=== PATIENT | male | born 1950 | race Caucasian/White ===

== ENCOUNTER → 2022-02-04 12:23 | Outpatient (BNVA) | payer OTHER, SELFPAY | PROVIDERS: PCP Internal Medicine; Visit Provider Psychiatry & Neurology Neurology | DX: G43.909 Migraine, unspecified, not intractable, without status migrainosus (principal) | CPT/HCPCS: 99212 ==

== ENCOUNTER 2022-04-25 18:03 | Inpatient (IN) | payer OTHER, SELFPAY ==
--- NOTE | ~2022-04-25 | CT_ITS ---
EXAMINATION: CT HEAD WITHOUT CONTRAST CLINICAL INFORMATION: 71-year-old male presents for evaluation of meningioma, arachnoid cyst. COMPARISON: None TECHNIQUE: Contiguous axial imaging was performed from the skull base to vertex without intravenous administration of contrast. This CT examination was performed using dose optimization techniques as appropriate, variously including the following: *Automated exposure control *Adjustment of mA and/or kV according to patient size (this includes techniques or standardized protocols for targeted exams where dose is matched to indication/reason for exam; i.e. extremities or head) *Use of iterative reconstruction technique DLP: 783 mGy-cm FINDINGS: There is prominence of cerebrospinal fluid space superior to the cerebellar vermis. This has the appearance of an arachnoid cyst which measures approximately 3.2 cm AP and 2 cm craniocaudal. Minimal mass effect upon the superior surfaces of the vermis and cerebellar hemispheres. The cerebellar tonsils are in normal position. A partially calcified extra-axial mass in the parasagittal region of the high right parietal lobe, consistent with meningioma, measures up to 1.4 cm maximum dimension. No associated mass effect. No evidence of an acute major vessel territory infarction. The haile-white matter differentiation maintained. Mild parenchymal volume loss with commensurate prominence of ventricles and sulci; no hydrocephalus. The brainstem is unremarkable. There is atherosclerotic calcification of cavernous carotid arteries. Prior right ocular lens extraction. A right scleral band is noted. The mastoid air cells are well aerated. Paranasal sinuses are unremarkable. Temporomandibular joints are normal. CT/CT head/brain wo IV con IMPRESSION: * No acute intracranial pathology. * 1.4 cm partially calcified meningioma is observed in the parasagittal region superior to the right parietal lobe. * Findings consistent with arachnoid cyst located within the posterior fossa superior to the cerebellar vermis.
[2022-04-25 18:07] VITALS: BP 153/87; PULSE 66; RESP 18; TEMP 36.3; O2SAT 99; BMI 21.6
--- NOTE | 2022-04-25 18:11 | ED_ITS ---
HPI - Psych General Chief Complaint: Psychiatric Symptoms <EYAL Mancini - Last Filed: 04/26/22 11:30> Stated Complaint: crisis <EYAL Mancini - Last Filed: 04/26/22 11:30> Time Seen by Provider: 04/25/22 18:46 <EYAL Mancini - Last Filed: 04/26/22 11:30> Source: patient <Bessybrian Kirbydonis Crowder CNP - Last Filed: 04/26/22 01:16> Mode of arrival: ambulatory <Bessy Crowder CNP - Last Filed: 04/26/22 01:16> Limitations: no limitations <Bessy Crowder CNP - Last Filed: 04/26/22 01:16> History of Present Illness HPI Narrative: patient is a 71-year-old male who presents emergency department for evaluation of increasing depression and vague suicidal ideations. He expresses feeling unsafe in wanting to wander into the [place] and . Reports increasing depression, and multiple family members having committed suicide. He is not interested in his usual activities, has poor appetite. Denies any drug or alcohol usage. Denies any physical complaints at this time. States he was seen by care provider in the community and advised to come to this emergency department. <Bessy Crowder CNP - Last Filed: 04/26/22 01:16> Related Data Home Medications: Home Medications Medication Instructions Recorded Confirmed galcanezumab-gnlm 120 mg/mL 120 mg subcut Q28D 02/04/22 04/25/22 subcutaneous syringe ([facility]) clonazepam 0.5 mg tablet 1 tab PO BID PRN anxiety 04/25/22 04/25/22 <EYAL Mancini - Last Filed: 04/26/22 11:30> Allergies/Adverse Reactions: Allergies Allergy/AdvReac Type Severity Reaction Status Date / Time No Known Allergies Allergy Mild NKA Unverified 02/04/22 12:27 <EYAL Mancini Last Filed: 04/26/22 11:30> Review of Systems Review of Systems: Constitutional : No Fever, No Chills ENT/Mouth : No Ear Pain, No Nasal Congestion, No sore throat Eyes: No Eye Pain, No Swelling, No Redness Cardiovascular : No Chest Pain, No SOB Respiratory : No Cough, No Sputum, No Dyspnea Gastrointestinal : No Nausea, No Vomiting, No Diarrhea, No Hematochezia, No Melena Genitourinary : No Dysuria, No Urinary Frequency, No Hematuria Musculoskeletal : No Myalgias Skin : No Skin Lesions, No rash Neuro : No Weakness, No Numbness, No Paresthesias, No Dizziness, No Headache Psych : positive Anxiety, positive Depression, positive SI, no HI Heme/Lymph: No Lymphadenopathy Endocrine : No Polyuria, No Polydipsia <Bessy Crowder CNP - Last Filed: 04/26/22 01:16> [facility] Past Medical History Attestation statement: The following information was validated with the patient. <Bessy Crowder CNP - Last Filed: 04/26/22 01:16> Source: old records reviewed <Bessy Crowder CNP - Last Filed: 04/26/22 01:16> Medical History: Medical History Arachnoid cyst Depression History of electroconvulsive therapy Memory loss Meningioma <EYAL Mancini - Last Filed: 04/26/22 11:30> Surgical History: Surgical History H/O eye surgery <EYAL Mancini - Last Filed: 04/26/22 11:30> Social History Social History: Social History Alcohol intake: unknown Patient Tobacco Use Status: Never used Tobacco Smoked in Last 30 Days: No Use of substances other than those prescribed or required for medical reasons: Unknown Advance Directives: No Advance Directives Information Provided: No <EYAL Mancini - Last Filed: 04/26/22 11:30> Physical Exam Vital Signs: Vital Signs: Last Vital Signs Temp 98.0 F 04/26/22 04:44 Pulse 69 04/26/22 08:12 Resp 16 04/26/22 08:12 BP 105/73 04/26/22 08:12 Pulse Ox 99 04/26/22 08:12 O2 Del Method 04/26/22 08:12 BMI result Body Mass Index 21.6 <EYAL Mancini - Last Filed: 04/26/22 11:30> Vital Signs: Last Vital Signs Temp 98.0 F 04/26/22 04:44 Pulse 69 04/26/22 08:12 Resp 16 04/26/22 08:12 BP 105/73 04/26/22 08:12 Pulse Ox 99 04/26/22 08:12 O2 Del Method 04/26/22 08:12 BMI result Body Mass Index 21.6 <Bessy Crowder CNP - Last Filed: 04/26/22 01:16> Vital Signs: Last Vital Signs Temp 98.0 F 04/26/22 04:44 Pulse 69 04/26/22 08:12 Resp 16 04/26/22 08:12 BP 105/73 04/26/22 08:12 Pulse Ox 99 04/26/22 08:12 O2 Del Method 04/26/22 08:12 BMI result Body Mass Index 21.6 <Benedicto Avalos MD - Last Filed: 04/26/22 09:00> Appearance: Alert.?Oriented to person, place and time. Anxious..?Normal affect. Eyes: Pupils equal, round and reactive to light.? ENT: Pharynx normal.?? Neck: Normal inspection.? Neck supple.?? CVS: Heart sounds normal. Normal heart rate and rhythm.? Pulses normal.?? Respiratory: No respiratory distress.? Lung sounds clear to auscultation bilaterally?? Abdomen: Soft and non-tender. Normoactive bowel sounds. Skin: Skin warm and dry.? Normal skin color.? Extremities: No lower extremity edema.? Neuro: Moves all extremities spontaneously. Sensation intact bilaterally. CN II- XII intact. No focal neuro deficits. Ambulates with normal steady gait. <Bessy Crowder CNP - Last Filed: 04/26/22 01:16> Course Course Course Narrative: RME: 71 yold male with pmh of depression presents to the ED for depression and suicidal ideation. patient states not intersted in eating or takeing part in his usual interests. labs and Crisis consult ordered <EYAL Mancini - Last Filed: 04/26/22 11:30> Reevaluation(s) Reevaluation #1: EKG reveals normal sinus rhythm, ventricular rate 68, QTC 412, normal QRS, ST elevation in V1- V4 <2mm and without any chest pain, shortness of breath, or symptoms concerning for ACS, Will add on troponin to labs. <Bessy KennyTD sinha - Last Filed: 04/26/22 01:16> Time: 22:25 <Bessy CrowderTD - Last Filed: 04/26/22 01:16> Reevaluation #2: Troponin 4.5, unlikely ACS. Patient complaining of bilateral hip pain, reports history of bursitis for which he has an offloading pressured cushion device at home. Has trialed repositioning and offloading with pillows but is having pain 09/17, patient to receive oxycodone orally. patient placed in physician observation, reason for observation being that he requires additional time for inpatient bed search to continue. Patient is agreeable with plan of care. Calm and cooperative, no apparent distress. COVID- 19 testing is positive today, however he reports that he tested positive for COVID- 19 5 weeks ago, symptoms resolved after a couple of days, has not taken any repeat testing since then. Currently without any URI symptoms. <Bessy Smyth TD Crowder - Last Filed: 04/26/22 01:16> Time: 22:42 <Bessy Smyth TD Crowder - Last Filed: 04/26/22 01:16> Reevaluation #3: Pt is inpatient level of care he was signed off to ma at 6.[address] Up.remain stable no event overnight,continue bed search <Benedicto Avalos MD - Last Filed: 04/26/22 09:00> Time: 08:59 <Benedicto Avalos MD - Last Filed: 04/26/22 09:00> Medications Administered Generic Name Dose Route Start Last Admin Trade Name Freq PRN Reason Stop Dose Admin Clonazepam 0.5 mg 04/25/22 22:29 04/26/22 10:06 Clonazepam 0.5 Mg Tablet PO 0.5 mg BID PRN Administration anxiety Discontinued Medications Generic Name Dose Route Start Last Admin Trade Name Freq PRN Reason Stop Dose Admin Clonazepam 1 mg 04/25/22 19:44 04/25/22 19:59 Clonazepam 1 Mg Tablet PO 04/25/22 19:45 1 mg ONCE ONE Administration Lorazepam 0.5 mg 04/26/22 11:02 04/26/22 11:09 Lorazepam 0.5 Mg Tablet PO 04/26/22 11:03 0.5 mg ONCE ONE Administration Oxycodone HCl 5 mg 04/25/22 22:42 04/25/22 23:39 Oxycodone Hcl Immed Release 5 Mg Tablet PO 04/25/22 22:43 5 mg ONCE ONE Administration <EYAL Mancini - Last Filed: 04/26/22 11:30> Medications Administered Generic Name Dose Route Start Last Admin Trade Name Freq PRN Reason Stop Dose Admin Clonazepam 0.5 mg 04/25/22 22:29 04/26/22 10:06 Clonazepam 0.5 Mg Tablet PO 0.5 mg BID PRN Administration anxiety Discontinued Medications Generic Name Dose Route Start Last Admin Trade Name Freq PRN Reason Stop Dose Admin Clonazepam 1 mg 04/25/22 19:44 04/25/22 19:59 Clonazepam 1 Mg Tablet PO 04/25/22 19:45 1 mg ONCE ONE Administration Lorazepam 0.5 mg 04/26/22 11:02 04/26/22 11:09 Lorazepam 0.5 Mg Tablet PO 04/26/22 11:03 0.5 mg ONCE ONE Administration Oxycodone HCl 5 mg 04/25/22 22:42 04/25/22 23:39 Oxycodone Hcl Immed Release 5 Mg Tablet PO 04/25/22 22:43 5 mg ONCE ONE Administration <Bessy Crowder CNP - Last Filed: 04/26/22 01:16> Medications Administered Generic Name Dose Route Start Last Admin Trade Name Freq PRN Reason Stop Dose Admin Clonazepam 0.5 mg 04/25/22 22:29 04/26/22 10:06 Clonazepam 0.5 Mg Tablet PO 0.5 mg BID PRN Administration anxiety Discontinued Medications Generic Name Dose Route Start Last Admin Trade Name Freq PRN Reason Stop Dose Admin Clonazepam 1 mg 04/25/22 19:44 04/25/22 19:59 Clonazepam 1 Mg Tablet PO 04/25/22 19:45 1 mg ONCE ONE Administration Lorazepam 0.5 mg 04/26/22 11:02 04/26/22 11:09 Lorazepam 0.5 Mg Tablet PO 04/26/22 11:03 0.5 mg ONCE ONE Administration Oxycodone HCl 5 mg 04/25/22 22:42 04/25/22 23:39 Oxycodone Hcl Immed Release 5 Mg Tablet PO 04/25/22 22:43 5 mg ONCE ONE Administration <Benedicto Avalos MD - Last Filed: 04/26/22 09:00> Medical Decision Making Medical Decision Making [facility] Narrative: Patient is a 71-year-old male with a past medical history of arachnoid cyst, meningioma, migraine, depression, bursitis the bilateral hips who presents to the emergency department for evaluation of increasing depression and suicidal ideations. Patient appears anxious, he is without any physical complaints. I consulted with care team, patient has been evaluated outpatient in the community by [facility] in [place], recommendations for inpatient psychiatric services. Patient has been treated at [facility] 15 years ago where he underwent ECT, and patient states this saved my life . Thus he presented here with hopes for inpatient services. He is currently awaiting bed availability for inpatient. Given age will obtain basic labs, urinalysis, viral testing, EKG for medical clearance. Regarding his anxiety, ordered patient's home clonazepam dosage. He is calm and cooperative. <Bessy Crowder CNP - Last Filed: 04/26/22 01:16> Differential Diagnosis Differential Diagnoses: The differential diagnosis associated with the presentation includes ( Physician observation as noted in course) <Bessy Crowder CNP - Last Filed: 04/26/22 01:16> Lab Data [facility] Lab Attestation statement: I reviewed the patient's lab results. <Bessy Crowder CNP - Last Filed: 04/26/22 01:16> Result Diagrams: 04/25/22 21:23 04/25/22 21:23 <EYAL Mancini - Last Filed: 04/26/22 11:30> Labs: Lab Results 04/25/22 04/25/22 04/25/22 Range/Units 21:23 21:23 21:23 WBC 3.4 L (4.8-10.8) X10*3/uL RBC 4.45 L (4.60-5.80) X10*6/uL Hgb 13.4 L (14.0-18.0) g/dl Hct 39.8 L (42.0-52.0) % MCV 89.4 (80.0-98.0) fL MCH 30.1 (27.0-33.0) pg MCHC 33.7 (31.0-36.0) g/dl RDW 12.5 (11.0-16.0) % Plt Count 150 L (160-400) X10*3/uL MPV 9.1 L (9.4-12.4) fL Immature Gran % (Auto) 0.3 (0.0-0.4) % Neut % (Auto) 64.6 (45-73) % Lymph % (Auto) 24.7 (20-40) % [place] % (Auto) 8.9 (2-11) % Eos % (Auto) 0.9 (0-4) % Baso % (Auto) 0.6 (0-2) % Lymph # (Auto) 0.8 L (1.2-4.9) X10*3/uL [place] # (Auto) 0.3 (0.1-1.2) X10*3/uL Eos # (Auto) 0.0 (0.0-0.4) X10*3/uL Baso # (Auto) 0.0 (0.0-0.2) X10*3/uL Abs Immat Gran (auto) 0.01 (0.00-0.03) X10*3/uL Absolute Neuts (auto) 2.2 (2.0-8.3) x10*3/uL Absolute Nucleated RBC 0.000 (0.0-0.012) X10*3/uL Nucleated RBC % (auto) 0.0 (0.0-0.2) /100WBC Sodium 140 (135-145) mmol/L Potassium 3.6 (3.3-5.1) mmol/L Chloride 104 (96-108) mmol/L Carbon Dioxide 30 H (22-29) mmol/L Anion Gap 10 L (12-20) BUN 16 (9-16) mg/dL Creatinine 1.26 (0.5-1.4) mg/dL Estim Creat Clear Calc 53.4 Estimated GFR 56 Random Glucose 126 H (60-115) mg/dL Calcium 8.9 (8.4-10.2) mg/dL Total Bilirubin 0.3 (0.0-1.0) mg/dL AST 17 (5-37) U/L ALT 15 (0-40) U/L Alkaline Phosphatase 62 (39-117) U/L Troponin I High Sens (<3.5-35.0) ng/L Total Protein 5.9 L (6.5-8.0) g/dL Albumin 3.8 (3.5-5.0) g/dL Urine Color Urine Appearance Urine pH (5.0-9.0) Ur Specific [place] (1.005-1.025) Urine Protein (Neg-Trace) mg/dL Urine Glucose (UA) (Negative) mg/dL Urine Ketones (Negative) mg/dL Urine Blood (Negative) Urine Nitrite (Negative) Ur Leukocyte Esterase (Negative) Urine Opiates Screen (Not Detect) Urine Fentanyl Screen (Not Detect) Ur Barbiturates Screen (Not Detect) Ur Phencyclidine Scrn (Not Detect) Ur Amphetamines Screen (Not Detect) U Benzodiazepines Scrn (Not Detect) Urine Cocaine Screen (Not Detect) U Marijuana (THC) Screen (Not Detect) Ethyl Alcohol < 10 mg/dL COVID-19 (GUNNAR) Positive A (Negative) COVID-19 Clin Com See Note 04/25/22 04/26/22 04/26/22 Range/Units 23:15 02:56 02:57 WBC (4.8-10.8) X10*3/uL RBC (4.60-5.80) X10*6/uL Hgb (14.0-18.0) g/dl Hct (42.0-52.0) % MCV (80.0-98.0) fL MCH (27.0-33.0) pg MCHC (31.0-36.0) g/dl RDW (11.0-16.0) % Plt Count (160-400) X10*3/uL MPV (9.4-12.4) fL Immature Gran % (Auto) (0.0-0.4) % Neut % (Auto) (45-73) % Lymph % (Auto) (20-40) % [place] % (Auto) (2-11) % Eos % (Auto) (0-4) % Baso % (Auto) (0-2) % Lymph # (Auto) (1.2-4.9) X10*3/uL [place] # (Auto) (0.1-1.2) X10*3/uL Eos # (Auto) (0.0-0.4) X10*3/uL Baso # (Auto) (0.0-0.2) X10*3/uL Abs Immat Gran (auto) (0.00-0.03) X10*3/uL Absolute Neuts (auto) (2.0-8.3) x10*3/uL Absolute Nucleated RBC (0.0-0.012) X10*3/uL Nucleated RBC % (auto) (0.0-0.2) /100WBC Sodium (135-145) mmol/L Potassium (3.3-5.1) mmol/L Chloride (96-108) mmol/L Carbon Dioxide (22-29) mmol/L Anion Gap (12-20) BUN (9-16) mg/dL Creatinine (0.5-1.4) mg/dL Estim Creat Clear Calc Estimated GFR Random Glucose (60-115) mg/dL Calcium (8.4-10.2) mg/dL Total Bilirubin (0.0-1.0) mg/dL AST (5-37) U/L ALT (0-40) U/L Alkaline Phosphatase (39-117) U/L Troponin I High Sens 4.5 (<3.5-35.0) ng/L Total Protein (6.5-8.0) g/dL Albumin (3.5-5.0) g/dL Urine Color Yellow Urine Appearance Clear Urine pH 5.5 (5.0-9.0) Ur Specific [place] 1.015 (1.005-1.025) Urine Protein Negative (Neg-Trace) mg/dL Urine Glucose (UA) Negative (Negative) mg/dL Urine Ketones Negative (Negative) mg/dL Urine Blood Negative (Negative) Urine Nitrite Negative (Negative) Ur Leukocyte Esterase Negative (Negative) Urine Opiates Screen Not Detected (Not Detect) Urine Fentanyl Screen Not Detected (Not Detect) Ur Barbiturates Screen Not Detected (Not Detect) Ur Phencyclidine Scrn Not Detected (Not Detect) Ur Amphetamines Screen Not Detected (Not Detect) U Benzodiazepines Scrn Not Detected (Not Detect) Urine Cocaine Screen Not Detected (Not Detect) U Marijuana (THC) Screen Not Detected (Not Detect) Ethyl Alcohol mg/dL COVID-19 (GUNNAR) (Negative) COVID-19 Clin Com <EYAL Mancini - Last Filed: 04/26/22 11:30> Lab Results 04/25/22 04/25/22 04/25/22 Range/Units 21:23 21:23 21:23 WBC 3.4 L (4.8-10.8) X10*3/uL RBC 4.45 L (4.60-5.80) X10*6/uL Hgb 13.4 L (14.0-18.0) g/dl Hct 39.8 L (42.0-52.0) % MCV 89.4 (80.0-98.0) fL MCH 30.1 (27.0-33.0) pg MCHC 33.7 (31.0-36.0) g/dl RDW 12.5 (11.0-16.0) % Plt Count 150 L (160-400) X10*3/uL MPV 9.1 L (9.4-12.4) fL Immature Gran % (Auto) 0.3 (0.0-0.4) % Neut % (Auto) 64.6 (45-73) % Lymph % (Auto) 24.7 (20-40) % [place] % (Auto) 8.9 (2-11) % Eos % (Auto) 0.9 (0-4) % Baso % (Auto) 0.6 (0-2) % Lymph # (Auto) 0.8 L (1.2-4.9) X10*3/uL [place] # (Auto) 0.3 (0.1-1.2) X10*3/uL Eos # (Auto) 0.0 (0.0-0.4) X10*3/uL Baso # (Auto) 0.0 (0.0-0.2) X10*3/uL Abs Immat Gran (auto) 0.01 (0.00-0.03) X10*3/uL Absolute Neuts (auto) 2.2 (2.0-8.3) x10*3/uL Absolute Nucleated RBC 0.000 (0.0-0.012) X10*3/uL Nucleated RBC % (auto) 0.0 (0.0-0.2) /100WBC Sodium 140 (135-145) mmol/L Potassium 3.6 (3.3-5.1) mmol/L Chloride 104 (96-108) mmol/L Carbon Dioxide 30 H (22-29) mmol/L Anion Gap 10 L (12-20) BUN 16 (9-16) mg/dL Creatinine 1.26 (0.5-1.4) mg/dL Estim Creat Clear Calc 53.4 Estimated GFR 56 Random Glucose 126 H (60-115) mg/dL Calcium 8.9 (8.4-10.2) mg/dL Total Bilirubin 0.3 (0.0-1.0) mg/dL AST 17 (5-37) U/L ALT 15 (0-40) U/L Alkaline Phosphatase 62 (39-117) U/L Troponin I High Sens (<3.5-35.0) ng/L Total Protein 5.9 L (6.5-8.0) g/dL Albumin 3.8 (3.5-5.0) g/dL Urine Color Urine Appearance Urine pH (5.0-9.0) Ur Specific [place] (1.005-1.025) Urine Protein (Neg-Trace) mg/dL Urine Glucose (UA) (Negative) mg/dL Urine Ketones (Negative) mg/dL Urine Blood (Negative) Urine Nitrite (Negative) Ur Leukocyte Esterase (Negative) Urine Opiates Screen (Not Detect) Urine Fentanyl Screen (Not Detect) Ur Barbiturates Screen (Not Detect) Ur Phencyclidine Scrn (Not Detect) Ur Amphetamines Screen (Not Detect) U Benzodiazepines Scrn (Not Detect) Urine Cocaine Screen (Not Detect) U Marijuana (THC) Screen (Not Detect) Ethyl Alcohol < 10 mg/dL COVID-19 (GUNNAR) Positive A (Negative) COVID-19 Clin Com See Note 04/25/22 04/26/22 04/26/22 Range/Units 23:15 02:56 02:57 WBC (4.8-10.8) X10*3/uL RBC (4.60-5.80) X10*6/uL Hgb (14.0-18.0) g/dl Hct (42.0-52.0) % MCV (80.0-98.0) fL MCH (27.0-33.0) pg MCHC (31.0-36.0) g/dl RDW (11.0-16.0) % Plt Count (160-400) X10*3/uL MPV (9.4-12.4) fL Immature Gran % (Auto) (0.0-0.4) % Neut % (Auto) (45-73) % Lymph % (Auto) (20-40) % [place] % (Auto) (2-11) % Eos % (Auto) (0-4) % Baso % (Auto) (0-2) % Lymph # (Auto) (1.2-4.9) X10*3/uL [place] # (Auto) (0.1-1.2) X10*3/uL Eos # (Auto) (0.0-0.4) X10*3/uL Baso # (Auto) (0.0-0.2) X10*3/uL Abs Immat Gran (auto) (0.00-0.03) X10*3/uL Absolute Neuts (auto) (2.0-8.3) x10*3/uL Absolute Nucleated RBC (0.0-0.012) X10*3/uL Nucleated RBC % (auto) (0.0-0.2) /100WBC Sodium (135-145) mmol/L Potassium (3.3-5.1) mmol/L Chloride (96-108) mmol/L Carbon Dioxide (22-29) mmol/L Anion Gap (12-20) BUN (9-16) mg/dL Creatinine (0.5-1.4) mg/dL Estim Creat Clear Calc Estimated GFR Random Glucose (60-115) mg/dL Calcium (8.4-10.2) mg/dL Total Bilirubin (0.0-1.0) mg/dL AST (5-37) U/L ALT (0-40) U/L Alkaline Phosphatase (39-117) U/L Troponin I High Sens 4.5 (<3.5-35.0) ng/L Total Protein (6.5-8.0) g/dL Albumin (3.5-5.0) g/dL Urine Color Yellow Urine Appearance Clear Urine pH 5.5 (5.0-9.0) Ur Specific [place] 1.015 (1.005-1.025) Urine Protein Negative (Neg-Trace) mg/dL Urine Glucose (UA) Negative (Negative) mg/dL Urine Ketones Negative (Negative) mg/dL Urine Blood Negative (Negative) Urine Nitrite Negative (Negative) Ur Leukocyte Esterase Negative (Negative) Urine Opiates Screen Not Detected (Not Detect) Urine Fentanyl Screen Not Detected (Not Detect) Ur Barbiturates Screen Not Detected (Not Detect) Ur Phencyclidine Scrn Not Detected (Not Detect) Ur Amphetamines Screen Not Detected (Not Detect) U Benzodiazepines Scrn Not Detected (Not Detect) Urine Cocaine Screen Not Detected (Not Detect) U Marijuana (THC) Screen Not Detected (Not Detect) Ethyl Alcohol mg/dL COVID-19 (GUNNAR) (Negative) COVID-19 Clin Com <Bessy Crowder, MED AIDE - Last Filed: 04/26/22 01:16> Lab Results 04/25/22 04/25/22 04/25/22 Range/Units 21:23 21:23 21:23 WBC 3.4 L (4.8-10.8) X10*3/uL RBC 4.45 L (4.60-5.80) X10*6/uL Hgb 13.4 L (14.0-18.0) g/dl Hct 39.8 L (42.0-52.0) % MCV 89.4 (80.0-98.0) fL MCH 30.1 (27.0-33.0) pg MCHC 33.7 (31.0-36.0) g/dl RDW 12.5 (11.0-16.0) % Plt Count 150 L (160-400) X10*3/uL MPV 9.1 L (9.4-12.4) fL Immature Gran % (Auto) 0.3 (0.0-0.4) % Neut % (Auto) 64.6 (45-73) % Lymph % (Auto) 24.7 (20-40) % [place] % (Auto) 8.9 (2-11) % Eos % (Auto) 0.9 (0-4) % Baso % (Auto) 0.6 (0-2) % Lymph # (Auto) 0.8 L (1.2-4.9) X10*3/uL [place] # (Auto) 0.3 (0.1-1.2) X10*3/uL Eos # (Auto) 0.0 (0.0-0.4) X10*3/uL Baso # (Auto) 0.0 (0.0-0.2) X10*3/uL Abs Immat Gran (auto) 0.01 (0.00-0.03) X10*3/uL Absolute Neuts (auto) 2.2 (2.0-8.3) x10*3/uL Absolute Nucleated RBC 0.000 (0.0-0.012) X10*3/uL Nucleated RBC % (auto) 0.0 (0.0-0.2) /100WBC Sodium 140 (135-145) mmol/L Potassium 3.6 (3.3-5.1) mmol/L Chloride 104 (96-108) mmol/L Carbon Dioxide 30 H (22-29) mmol/L Anion Gap 10 L (12-20) BUN 16 (9-16) mg/dL Creatinine 1.26 (0.5-1.4) mg/dL Estim Creat Clear Calc 53.4 Estimated GFR 56 Random Glucose 126 H (60-115) mg/dL Calcium 8.9 (8.4-10.2) mg/dL Total Bilirubin 0.3 (0.0-1.0) mg/dL AST 17 (5-37) U/L ALT 15 (0-40) U/L Alkaline Phosphatase 62 (39-117) U/L Troponin I High Sens (<3.5-35.0) ng/L Total Protein 5.9 L (6.5-8.0) g/dL Albumin 3.8 (3.5-5.0) g/dL Urine Color Urine Appearance Urine pH (5.0-9.0) Ur Specific [place] (1.005-1.025) Urine Protein (Neg-Trace) mg/dL Urine Glucose (UA) (Negative) mg/dL Urine Ketones (Negative) mg/dL Urine Blood (Negative) Urine Nitrite (Negative) Ur Leukocyte Esterase (Negative) Urine Opiates Screen (Not Detect) Urine Fentanyl Screen (Not Detect) Ur Barbiturates Screen (Not Detect) Ur Phencyclidine Scrn (Not Detect) Ur Amphetamines Screen (Not Detect) U Benzodiazepines Scrn (Not Detect) Urine Cocaine Screen (Not Detect) U Marijuana (THC) Screen (Not Detect) Ethyl Alcohol < 10 mg/dL COVID-19 (GUNNAR) Positive A (Negative) COVID-19 Clin Com See Note 04/25/22 04/26/22 04/26/22 Range/Units 23:15 02:56 02:57 WBC (4.8-10.8) X10*3/uL RBC (4.60-5.80) X10*6/uL Hgb (14.0-18.0) g/dl Hct (42.0-52.0) % MCV (80.0-98.0) fL MCH (27.0-33.0) pg MCHC (31.0-36.0) g/dl RDW (11.0-16.0) % Plt Count (160-400) X10*3/uL MPV (9.4-12.4) fL Immature Gran % (Auto) (0.0-0.4) % Neut % (Auto) (45-73) % Lymph % (Auto) (20-40) % [place] % (Auto) (2-11) % Eos % (Auto) (0-4) % Baso % (Auto) (0-2) % Lymph # (Auto) (1.2-4.9) X10*3/uL [place] # (Auto) (0.1-1.2) X10*3/uL Eos # (Auto) (0.0-0.4) X10*3/uL Baso # (Auto) (0.0-0.2) X10*3/uL Abs Immat Gran (auto) (0.00-0.03) X10*3/uL Absolute Neuts (auto) (2.0-8.3) x10*3/uL Absolute Nucleated RBC (0.0-0.012) X10*3/uL Nucleated RBC % (auto) (0.0-0.2) /100WBC Sodium (135-145) mmol/L Potassium (3.3-5.1) mmol/L Chloride (96-108) mmol/L Carbon Dioxide (22-29) mmol/L Anion Gap (12-20) BUN (9-16) mg/dL Creatinine (0.5-1.4) mg/dL Estim Creat Clear Calc Estimated GFR Random Glucose (60-115) mg/dL Calcium (8.4-10.2) mg/dL Total Bilirubin (0.0-1.0) mg/dL AST (5-37) U/L ALT (0-40) U/L Alkaline Phosphatase (39-117) U/L Troponin I High Sens 4.5 (<3.5-35.0) ng/L Total Protein (6.5-8.0) g/dL Albumin (3.5-5.0) g/dL Urine Color Yellow Urine Appearance Clear Urine pH 5.5 (5.0-9.0) Ur Specific [place] 1.015 (1.005-1.025) Urine Protein Negative (Neg-Trace) mg/dL Urine Glucose (UA) Negative (Negative) mg/dL Urine Ketones Negative (Negative) mg/dL Urine Blood Negative (Negative) Urine Nitrite Negative (Negative) Ur Leukocyte Esterase Negative (Negative) Urine Opiates Screen Not Detected (Not Detect) Urine Fentanyl Screen Not Detected (Not Detect) Ur Barbiturates Screen Not Detected (Not Detect) Ur Phencyclidine Scrn Not Detected (Not Detect) Ur Amphetamines Screen Not Detected (Not Detect) U Benzodiazepines Scrn Not Detected (Not Detect) Urine Cocaine Screen Not Detected (Not Detect) U Marijuana (THC) Screen Not Detected (Not Detect) Ethyl Alcohol mg/dL COVID-19 (GUNNAR) (Negative) COVID-19 Clin Com <Benedicto Avalos MD - Last Filed: 04/26/22 09:00> Independent Interpretation I performed an independent interpretation of an: EKG ( as noted in course) <Bessy Crowder CNP - Last Filed: 04/26/22 01:16> Discharge Plan Discharge Clinical Impression: Suicidal ideation, Depression <EYAL Mancini - Last Filed: 04/26/22 11:30> Patient Disposition: Still a Patient <EYAL Mancini - Last Filed: 04/26/22 11:30> Prescriptions: No Action clonazepam 0.5 mg tablet 1 tab PO BID PRN (Reason: anxiety) Emgality Syringe 120 mg/mL syringe 120 mg subcut Q28D <EYAL Mancini - Last Filed: 04/26/22 11:30> Interventions: [place]-Suicide Risk Severity Scale Last Done: 04/26/22 04:16 <EYAL Mancini - Last Filed: 04/26/22 11:30>
--- NOTE | 2022-04-25 19:44 | ECG_ITS ---
Test Reason : QT CHECK Blood Pressure : / mmHG Vent. Rate : 068 BPM Atrial Rate : 068 BPM P-R Int : 180 ms QRS Dur : 086 ms QT Int : 388 ms P-R-T Axes : 071 046 050 degrees QTc Int : 412 ms Normal sinus rhythm Nonspecific T wave abnormality Abnormal ECG When compared with ECG of 05-JUL-2011 14:14, Nonspecific T wave abnormality now evident in Anterior leads Referred By: Bessy Crowder Electronically Signed By:GABBY RASHID MD
[2022-04-25] MEDS: clonazePAM 1 MG TABLET PO (19:59)
--- NOTE | 2022-04-25 20:12 | MHC.CARE ---
CARE Team meets with pt and pt's friend, Alison. Pt was assessed by PUNCH PRESS OPERATOR crisis in [place] this evening due to significant increased anxiety and depression and inability to sleep. PUNCH PRESS OPERATOR contacted CARE Team as pt requested [facility], as pt was hospitalized here 15 years ago and received ECT w/ Dr. Epperson. Pt is anxious during discussion with t/w and expressed concern about having his medical lab technician that he sleeps on, a pad that inflates and deflates, that without he has hip pain. Per discharge specialist pt is not able to have this device in the ED. Pt states that he will be ok for one night, but not beyond that. CARE Team provides validation and reassurance to pt.
[2022-04-25 21:30] LABS: MANUAL DIFF FLAG NO
[2022-04-25 21:36] LABS: Basophils Percent Auto 0.6 % (0-2); Eosinophils Percent Auto 0.9 % (0-4); Hematocrit 39.8 % (42.0-52.0); Hemoglobin 13.4 g/dl (14.0-18.0); Imm Gran Abs Auto 0.01 X10*3/uL (0.00-0.03); Imm Gran Pct Auto 0.3 % (0.0-0.4); Lymphocytes Absolute Auto 0.8 X10*3/uL (1.2-4.9); Lymphocytes Percent Auto 24.7 % (20-40); Mean Corpuscular HGB Conc 33.7 g/dl (31.0-36.0); Mean Corpuscular Hemoglobin 30.1 pg (27.0-33.0); Mean Corpuscular Volume 89.4 fL (80.0-98.0); Mean Platelet Volume 9.1 fL (9.4-12.4); Monocytes Absolute Auto 0.3 X10*3/uL (0.1-1.2); Monocytes Percent Auto 8.9 % (2-11); Neutrophils Absolute Auto 2.2 x10*3/uL (2.0-8.3); Neutrophils Percent Auto 64.6 % (45-73); Platelet Count 150 X10*3/uL (160-400); Red Blood Count 4.45 X10*6/uL (4.60-5.80); Red Cell Distribution Width 12.5 % (11.0-16.0); White Blood Count 3.4 X10*3/uL (4.8-10.8)
[2022-04-25 21:45] LABS: IDNOW Serial# 6674DD1D
[2022-04-25 21:46] LABS: COVID-19 Test Positive (Negative)
[2022-04-25 21:53] LABS: Alanine Aminotransferase 15 U/L (0-40); Albumin Level 3.8 g/dL (3.5-5.0); Alkaline Phosphatase 62 U/L (39-117); Anion Gap 10 (12-20); Aspartate Amino Transferase 17 U/L (5-37); Bilirubin Total 0.3 mg/dL (0.0-1.0); Blood Urea Nitrogen 16 mg/dL (9-16); Calcium 8.9 mg/dL (8.4-10.2); Carbon Dioxide 30 mmol/L (22-29); Chloride 104 mmol/L (96-108); Creatinine Clr Calc Pharmacy 53.4; Estimated Glomerular Filt Rate 56; Ethanol < 10 mg/dL; Glucose Random 126 mg/dL (60-115); Potassium 3.6 mmol/L (3.3-5.1); Sodium 140 mmol/L (135-145); Total Protein 5.9 g/dL (6.5-8.0)
[2022-04-25] MEDS: oxyCODONE HCl Immed Release 5 MG TABLET PO (23:39)
[2022-04-25 23:41] LABS: Troponin-I High Sensitivity 4.5 ng/L (<3.5-35.0)
[2022-04-25] MEDS: clonazePAM 0.5 MG TABLET PO (23:42)
[2022-04-26 00:37] VITALS: BP 107/61; PULSE 74; RESP 13; TEMP 37; O2SAT 97
--- NOTE | 2022-04-26 03:00 | PC.NURSE ---
This health technical writer assumed care of this PT at 0245. PT A&Ox3, calm and cooperative. Denies Si/HI. States anxiety level has been high for the past month . PT reports tolerable pain 5/10 to right sided hip/thigh pain, states med given by previous nurse was effective. PT ambulated to the BR independently. Urine sample collected and sent to lab.
[2022-04-26 03:16] LABS: Amphetamine Screen Urine Not Detected (Not Detect); Barbiturates, Urine Not Detected (Not Detect); Benzodiazepines Screen Urine Not Detected (Not Detect); Cannabinoid Screen Urine Not Detected (Not Detect); Cocaine Screen Urine Not Detected (Not Detect); Fentanyl, urine Not Detected (Not Detect); Opiate Screen Urine Not Detected (Not Detect); Phencyclidine Screen Urine Not Detected (Not Detect)
[2022-04-26 03:21] LABS: Appearance Urine Clear; Color Urine Yellow; Glucose Urine UA Negative (Negative); Leukocyte Esterase Urine Negative (Negative); Nitrite Urine Negative (Negative); PH 5.5 (5.0-9.0); Specific Gravity - Urine 1.015 (1.005-1.025); Urine Blood Negative (Negative); Urine Ketones Negative (Negative); Urine Protein Negative (Neg-Trace)
[2022-04-26 04:44] VITALS: BP 116/79; PULSE 73; RESP 16; TEMP 36.7; O2SAT 96
[2022-04-26 08:12] VITALS: BP 105/73; PULSE 69; RESP 16; O2SAT 99
[2022-04-26] MEDS: clonazePAM 0.5 MG TABLET PO ×2 (10:06→21:28)
[2022-04-26] MEDS: LORazepam 0.5 MG TABLET PO (11:09)
--- NOTE | 2022-04-26 19:37 | PC.NURSE ---
I assumed care for RN Hayder at 1900. At that time the pt was leaving the department with transport and staff [facility] inpatient psych unit. I did not interact with nor care for this patient. nor did I call nursing report
--- NOTE | 2022-04-26 22:48 | PC.ADMIT ---
Martir was admitted to M3 at 1930 from Main ED on conditional for treatment of SI and depression.? Precipitant of admission include poor sleep and increasing depression. Patient is alert and oriented x4. Pleasant and cooperative. Mood is depressed. Affect is sad and flat. Thought Process linear, clear and organized. Speech is clear and normal tone and volume.?Patient reported that prior to coming in he had passive SI thoughts due to sudden increase in depressive symptoms. Patient reported that its new onset started after he had covid the last week of March 2022. Currently denying SI/HI/AH/VH. Stated ?I just want to get help, and that's why I am here?. Reported he wants ECT, and is resistive to trying medications ?i have tried them and not medications work?. Reported that about 15 years ago he received ECT treatments with Dr. Epperson. Reported that the ECT worked well and his depression was manageable up until recently. Endorsed requiring clonazepam 1 mg to sleep. Reported that he was sleeping 8 plus hours a night and still waking up not refreshed, compared to prior sleeping 6-7 hours a night and feeling refreshed. No substance use. Reports chronic pain in bilateral hips. Utilizes air mattress pad at night, requiring equipment obs overnight. 15 minute safety checks when not utilizing.
--- NOTE | 2022-04-27 | ECG_ITS ---
Test Reason : ect clearence Blood Pressure : / mmHG Vent. Rate : 064 BPM Atrial Rate : 064 BPM P-R Int : 174 ms QRS Dur : 084 ms QT Int : 388 ms P-R-T Axes : 078 051 047 degrees QTc Int : 400 ms Normal sinus rhythm Nonspecific ST abnormality Abnormal ECG When compared with ECG of 25-APR-2022 20:49, No significant change was found Referred By: Wil Chakraborty Electronically Signed By:GABBY RASHID MD
[2022-04-27 06:00] VITALS: BP 127/73; PULSE 68; TEMP 36.7; O2SAT 96
[2022-04-27] MEDS: ALPRAZolam 0.5 MG TABLET PO ×2 (11:58→16:46)
--- NOTE | 2022-04-27 14:25 | MHC.CLN ---
RE: CONSULT HT 71 WT 155# IBW 172#+/-10% BMI 21.6; PT IS 90% IBW INDICATES ADEQUATE WT FOR HT UBW PER PT 165#; PT REPORTS 6% SIGNIFICANT WT LOSS X 1 MONTH HOWEVER PREVIOUS WT HX REVEALS: CURRENT 70.3KG (02/04/22) 68KG PT WITH 3% NONSIGNIFICANT WT GAIN X 3 MONTHS LABS REVIEWED-UNREMARKABLE DIET RX: REGULAR-APPROPRIATE NO NEW ORDERS AT THIS TIME MONITOR PO INTAKE CLOSELY IF PO POOR <25% X 3 DAYS; RECOMMEND ADDING ENSURE SUPPLEMENT BID
--- NOTE | 2022-04-27 15:32 | PM.NEUROCN ---
History of Present Illness Data of Consult Service Date: 04/27/22 Primary Care Provider: Nonstaff Physician REA Reason for consult: ECT clearance 71 years old man with chronic depression. He said that about 15 years ago he suffered from severe depression was admitted in hospital tried multiple medical therapies which all failed. He requested ECT treatment, which was tried and worked well for him. He was back in hospital requesting same treatment again. This consultation was requested for ECT clearance and the note stated that he suffered from meningioma and an arachnoid cyst but I could not find any evidence of imaging [facility] or in his records. There was no history of seizure disorder Review of Systems Review of Systems: Feeling depressed PMFSH Past Medical History Medical History Arachnoid cyst Depression History of electroconvulsive therapy Memory loss Meningioma Surgical History Surgical History H/O eye surgery Social History Social History Household Members: Other Household Members Other:: house mates Housing: Apartment Alcohol intake: unknown Patient Tobacco Use Status: Never used Tobacco Smoked in Last 30 Days: No Use of substances other than those prescribed or required for medical reasons: No Currently Displaying Signs/Symptoms of Drug Intoxication Withdrawal: No Have you been hit, kicked, punched, or otherwise hurt by someone within the past year? If so, by whom?: No Do you feel safe in your current relationship?: No Current Relationship Is there a partner from a previous relationship who is making you feel unsafe now?: No Are you made to feel afraid or neglected: No Advance Directives: No Advance Directives Information Provided: No Do you have thoughts of harming others: None Do you have a plan to hurt others: No Plan Recently lost weight without trying: No How much weight loss: 2-13 pounds Eating poorly because of decreased appetite: Yes Nutrition screen score: 2 Nutrition Risks: No Nutritional Risk Poor oral hygiene: No service: No Sexual orientation: Don't Know Meds Allergies Allergy/AdvReac Type Severity Reaction Status Date / Time No Known Allergies Allergy Mild NKA Unverified 02/04/22 12:27 Active Medications: Current Medications Acetaminophen (Acetaminophen 325 Mg Tablet) 650 mg PO Q6H PRN PRN Reason: Headache/Pain Mild Scale (1-3) Al Hydroxide/Mg Hydroxide (Magnesium Hydrox/Alum Hydrox 30 Ml Oral.Susp) 30 ml PO Q6H PRN PRN Reason: Heartburn/Nausea Alprazolam (Alprazolam 0.5 Mg Tablet) 0.5 mg PO Q4H PRN PRN Reason: severe anxiety Last Admin: 04/27/22 11:58 Dose: 0.5 mg Clonazepam (Clonazepam 0.5 Mg Tablet) 0.5 mg PO BID PRN PRN Reason: anxiety Last Admin: 04/26/22 21:28 Dose: 0.5 mg Magnesium Hydroxide (Milk Of Magnesia 30 Ml Oral.Susp) 30 ml PO DAILY PRN PRN Reason: Constipation Nicotine (Nicotine 21 Mg Patch.Td24) 21 mg TRANSDERMA DAILY PRN PRN Reason: smoking cessation Nicotine Polacrilex (Nicotine Polacrilex 2 Mg Gum) 4 mg BUCCAL Q2H PRN PRN Reason: Nicotine Cravings Pharmacy Consult (Consult Rx Perform Med Rec) 1 each MISCELLANE ONCE PRN PRN Reason: Consult order Trazodone HCl (Trazodone Hcl 50 Mg Tablet) 50 mg PO BEDTIME PRN PRN Reason: Insomnia Home Medications Medication Instructions Recorded Confirmed Last Taken Type galcanezumab-gnlm 120 mg/mL 120 mg subcut Q28D 02/04/22 04/25/22 04/10/22 History subcutaneous syringe (Emgality) clonazepam 0.5 mg tablet 1 tab PO BID PRN anxiety 04/25/22 04/25/22 Unknown History Physical Exam Vital Signs: Vital Signs: Last Vital Signs Temp 98.1 F 04/27/22 06:00 Pulse 68 04/27/22 06:00 Resp 16 04/26/22 08:12 BP 127/73 04/27/22 06:00 Pulse Ox 96 04/27/22 06:00 O2 Del Method 04/27/22 06:00 BMI result Body Mass Index 21.6 Neuro: Other: Alert and awake with normal spontaneity of speech fluency comprehension and flat affect. Balance gait and coordination normal. Face is symmetrical. Visual french are full. There is no tremor or parkinsonism. Deep tendon reflexes are trace. Results Labs 04/25/22 21:23 04/25/22 21:23 Assessment and Plan (1) Meningioma: Status: Acute 71 years old man with chronic depression being considered for electroconvulsive therapy. This consultation was requested for ECT clearance. His noncontrast head CT revealed a calcified meningioma and an arachnoid cyst. These lesions do not particularly increases risk from electroconvulsive therapy. No premedication is needed. Meningioma is calcified and asymptomatic. Arachnoid cyst is asymptomatic also. No further imaging or intervention is needed. (2) Arachnoid cyst: Status: Acute Time Spent With Patient Time: Total time managing care of this patient today ____ minutes. Procedures Date of Service Date of Service: 04/28/22
--- NOTE | 2022-04-27 17:40 | HO.PM.IMCN ---
History of Present Illness Data of Consult Service Date: 04/27/22 Requesting physician: Wil Chakraborty Primary Care Provider: Nonstaff Physician REA Reason for consult: ECT evaluation 71-year-old male with history of depression, arachnoid cyst, meningioma, and migraine headaches on monthly emgality injections admitted to Psychiatry with consult placed to Medicine for medical evaluation for ECT. The patient denies any history of cardiovascular disease, congestive heart failure, or seizures. He is able to ambulate distances and climb stairs without any sob or cp. He was evaluated by neurology earlier today who did not find any particular contraindication to ECT given the history of meningioma an arachnoid cyst and also requested that prior imaging results be obtained for review and additional neurological guidance. Review of Systems Review of Systems: General: No fevers, malaise, unintentional weight loss HEENT: No blurred vision, diplopia. Cardiovascular: No chest pain, palpitations, or leg edema Respiratory: No shortness of breath, wheezing, cough GI: No abdominal pain, nausea, vomiting, diarrhea, constipation, melena, hematochezia : No dysuria, hematuria, increased urinary frequency, decreased urinary output MSK: No myalgia, back pain Neuro: No headaches, weakness, paresthesias Skin: No rashes or lesions COUNTS INCLUDE 234 BEDS AT THE [facility] Medical History Arachnoid cyst Depression History of electroconvulsive therapy Memory loss Meningioma Surgical History H/O eye surgery Social History Household Members: Other Household Members Other:: house mates Housing: Apartment Alcohol intake: unknown Patient Tobacco Use Status: Never used Tobacco Smoked in Last 30 Days: No Use of substances other than those prescribed or required for medical reasons: No Currently Displaying Signs/Symptoms of Drug Intoxication Withdrawal: No Have you been hit, kicked, punched, or otherwise hurt by someone within the past year? If so, by whom?: No Do you feel safe in your current relationship?: No Current Relationship Is there a partner from a previous relationship who is making you feel unsafe now?: No Are you made to feel afraid or neglected: No Advance Directives: No Advance Directives Information Provided: No Do you have thoughts of harming others: None Do you have a plan to hurt others: No Plan Recently lost weight without trying: No How much weight loss: 2-13 pounds Eating poorly because of decreased appetite: Yes Nutrition screen score: 2 Nutrition Risks: No Nutritional Risk Poor oral hygiene: No service: No Sexual orientation: Don't Know Meds Allergies Allergy/AdvReac Type Severity Reaction Status Date / Time No Known Allergies Allergy Mild NKA Unverified 02/04/22 12:27 Active Medications: Current Medications Acetaminophen (Acetaminophen 325 Mg Tablet) 650 mg PO Q6H PRN PRN Reason: Headache/Pain Mild Scale (1-3) Al Hydroxide/Mg Hydroxide (Magnesium Hydrox/Alum Hydrox 30 Ml Oral.Susp) 30 ml PO Q6H PRN PRN Reason: Heartburn/Nausea Alprazolam (Alprazolam 0.5 Mg Tablet) 0.5 mg PO Q4H PRN PRN Reason: severe anxiety Last Admin: 04/27/22 16:46 Dose: 0.5 mg Clonazepam (Clonazepam 0.5 Mg Tablet) 0.5 mg PO BID PRN PRN Reason: anxiety Last Admin: 04/26/22 21:28 Dose: 0.5 mg Magnesium Hydroxide (Milk Of Magnesia 30 Ml Oral.Susp) 30 ml PO DAILY PRN PRN Reason: Constipation Nicotine (Nicotine 21 Mg Patch.Td24) 21 mg TRANSDERMA DAILY PRN PRN Reason: smoking cessation Nicotine Polacrilex (Nicotine Polacrilex 2 Mg Gum) 4 mg BUCCAL Q2H PRN PRN Reason: Nicotine Cravings Pharmacy Consult (Consult Rx Perform Med Rec) 1 each MISCELLANE ONCE PRN PRN Reason: Consult order Trazodone HCl (Trazodone Hcl 50 Mg Tablet) 50 mg PO BEDTIME PRN PRN Reason: Insomnia Home Medications Medication Instructions Recorded Confirmed Last Taken Type galcanezumab-gnlm 120 mg/mL 120 mg subcut Q28D 02/04/22 04/25/22 04/10/22 History subcutaneous syringe (Emgality) clonazepam 0.5 mg tablet 1 tab PO BID PRN anxiety 04/25/22 04/25/22 Unknown History Physical Exam Vital Signs and Narrative: Vital Signs: Last Vital Signs Temp 98.1 F 04/27/22 06:00 Pulse 68 04/27/22 06:00 Resp 16 04/26/22 08:12 BP 127/73 04/27/22 06:00 Pulse Ox 96 04/27/22 06:00 O2 Del Method 04/27/22 06:00 BMI result Body Mass Index 21.6 Constitutional - Awake and Alert, No apparent distress Eyes - PERRLA, EOMI Cardiovascular - S1S2, RRR, No edema Respiratory - Normal lung expansion, Normal respiratory effort, No respiratory distress, CTA bilaterally Gastrointestinal - NT / ND; +BS; No rebound or guarding Extremities - no calf tenderness bilaterally, no swelling Skin - Warm/Dry Neurological - Alert & oriented x3, CN II-XII in tact, 5/5 strength BUE and BLE Psychological - Appropriate affect Results Labs 04/25/22 21:23 04/25/22 21:23 Assessment and Plan (1) Routine medical exam: Status: Acute Plan 71-year-old male with history of depression, arachnoid cyst, meningioma, and migraine headaches on monthly emgality injections admitted to Psychiatry with consult placed to Medicine for medical evaluation for ECT. #Depression/anxiety -Plan per psychiatry -At this time, there is no medical contraindication for patient to undergo ECT based on patient history and exam. I have also reviewed neurology recommendations #Meningioma/arachnoid cyst -Obtain prior imaging for further neurology review and recommendation #Migraines- controlled -PRN tylenol or imitrex -Emgality as directed if still admitted Thank you for allowing me to participate in this consult. Signing off at this time. Please do not hesitate to call for further questions. Time Spent With Patient Time: Total time managing care of this patient today ____ minutes.
[2022-04-27 18:00] VITALS: BP 119/81; PULSE 62; RESP 16; TEMP 36.2; O2SAT 96
--- NOTE | 2022-04-27 18:34 | PC.ADMIT ---
This patient was escorted from M3 to S1 by M3 staff-please see initial admission note for additional details upon arrival to the hospital. Pt. arrived on the unit via w/c at 1800. Pt. is ambulatory and independent. Pt. is very anxious and expressing concern about not having peers to speak to. My anxiety and depression will get worse if I don't have anyone to speak to, that is why I am here . Pt. states that he will be meeting with Dr. Epperson in the morning to discuss ECT treatment for his depression. He states that he wishes to do only 1 treatment while inpatient, and then d/c and complete the treatment as outpatient. Pt. is hypodermically stable upon arrival to the unit. He was shown his bedroom, and given tour of the unit. Pt. provided with dinner which he ate.
--- NOTE | 2022-04-27 20:29 | P.HPPS_ITS ---
HPI Date of Service: 04/27/22 Chief Complaint: SI/ Depression HPI Narrative: pt self-presents to [facility] for evaluation, accompanied by a female friend. he reports since having COVID in recent weeks his mood has broken and he has become severely depressed, such that he has been having suicidal thoughts. he is not currently in mental health treatment and is interested in starting on a course of ECT and then obtaining a referral for psychiatrist, then discharging to complete his ECT course outpatient. he is concerned that if he is unable to start ECT imminently, he may commit suicide. Past Psychiatric History: hosps: reports several hospitalizations about 15 years ago, stating he has been inpatient at [facility], [facility], and [facility]. per DC summary in medical records, pt was inpatient at [facility] in 2011 and received ECT. SA: pt reports one attempt in his 20s and another in his 40s, via overdose and cutting. SIB: denies any Hx. not currently in outpatient Tx. does not wish to take medications but has found ECT very helpful. Medical Evaluation Reviewed: Yes [facility] Medical History Arachnoid cyst Depression History of electroconvulsive therapy Memory loss Meningioma Surgical History H/O eye surgery Family History: brother - completed suicide mother - severe depression Social History: lives in [place]. rents an apartment but has essentially been living with a platonic female friend recently, in her home that she owns. they share dogs at the home. has 1 son, 33 yo. . 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 states he has a law degree but does not practice. Substance History: cocaine - reports h/o use, last about 10 years ago (coinciding with his most recent [facility] hospitalization). tobacco - denies alcohol - denies cannabis - i hate that. denies use of other substances of abuse. Trauma History: none reported Diagnostics Vital Signs (24Hr): Vital Signs - 24 hr 04/27/22 06:00 04/27/22 18:00 Temperature 98.1 F 97.2 F Pulse Rate 68 62 Respiratory Rate 16 Blood Pressure 127/73 119/81 Pulse Oximetry 96 96 Oxygen Delivery Method Room Air Room Air BMI result Body Mass Index 21.6 Labs 04/25/22 21:23 04/25/22 21:23 Labs: Laboratory Results - last 48 hr 04/25/22 04/25/22 04/25/22 21:23 21:23 21:23 WBC 3.4 L RBC 4.45 L Hgb 13.4 L Hct 39.8 L MCV 89.4 MCH 30.1 MCHC 33.7 RDW 12.5 Plt Count 150 L MPV 9.1 L Immature Gran % (Auto) 0.3 Neut % (Auto) 64.6 Lymph % (Auto) 24.7 [place] % (Auto) 8.9 Eos % (Auto) 0.9 Baso % (Auto) 0.6 Lymph # (Auto) 0.8 L [place] # (Auto) 0.3 Eos # (Auto) 0.0 Baso # (Auto) 0.0 Abs Immat Gran (auto) 0.01 Absolute Neuts (auto) 2.2 Absolute Nucleated RBC 0.000 Nucleated RBC % (auto) 0.0 Sodium 140 Potassium 3.6 Chloride 104 Carbon Dioxide 30 H Anion Gap 10 L BUN 16 Creatinine 1.26 Estim Creat Clear Calc 53.4 Estimated GFR 56 Random Glucose 126 H Calcium 8.9 Total Bilirubin 0.3 AST 17 ALT 15 Alkaline Phosphatase 62 Troponin I High Sens Total Protein 5.9 L Albumin 3.8 Urine Color Urine Appearance Urine pH Ur Specific [place] Urine Protein Urine Glucose (UA) Urine Ketones Urine Blood Urine Nitrite Ur Leukocyte Esterase Urine Opiates Screen Urine Fentanyl Screen Ur Barbiturates Screen Ur Phencyclidine Scrn Ur Amphetamines Screen U Benzodiazepines Scrn Urine Cocaine Screen U Marijuana (THC) Screen Ethyl Alcohol < 10 COVID-19 (GUNNAR) Positive A COVID-19 Clin Com See Note 04/25/22 04/26/22 04/26/22 23:15 02:56 02:57 WBC RBC Hgb Hct MCV MCH MCHC RDW Plt Count MPV Immature Gran % (Auto) Neut % (Auto) Lymph % (Auto) [place] % (Auto) Eos % (Auto) Baso % (Auto) Lymph # (Auto) [place] # (Auto) Eos # (Auto) Baso # (Auto) Abs Immat Gran (auto) Absolute Neuts (auto) Absolute Nucleated RBC Nucleated RBC % (auto) Sodium Potassium Chloride Carbon Dioxide Anion Gap BUN Creatinine Estim Creat Clear Calc Estimated GFR Random Glucose Calcium Total Bilirubin AST ALT Alkaline Phosphatase Troponin I High Sens 4.5 Total Protein Albumin Urine Color Yellow Urine Appearance Clear Urine pH 5.5 Ur Specific [place] 1.015 Urine Protein Negative Urine Glucose (UA) Negative Urine Ketones Negative Urine Blood Negative Urine Nitrite Negative Ur Leukocyte Esterase Negative Urine Opiates Screen Not Detected Urine Fentanyl Screen Not Detected Ur Barbiturates Screen Not Detected Ur Phencyclidine Scrn Not Detected Ur Amphetamines Screen Not Detected U Benzodiazepines Scrn Not Detected Urine Cocaine Screen Not Detected U Marijuana (THC) Screen Not Detected Ethyl Alcohol COVID-19 (GUNNAR) COVID-19 Clin Com Meds/Allergies Meds Home Medications Medication Instructions Recorded Confirmed Type galcanezumab-gnlm 120 mg/mL 120 mg subcut Q28D 02/04/22 04/25/22 History subcutaneous syringe (Emgality) clonazepam 0.5 mg tablet 1 tab PO BID PRN anxiety 04/25/22 04/25/22 History Allergies Allergies Allergy/AdvReac Type Severity Reaction Status Date / Time No Known Allergies Allergy Mild NKA Unverified 02/04/22 12:27 Mental Status Exam Mental Status Exam Narrative: disheveled, dressed in [employer] fleece jacket, mussed hair. thin. PMA of freque nt repositionings and arm movements. cooperative. speech incr in rate and amount, decr latency. nml prosody and loudness. thoughts linear and logical, for the most part. affect constricted, hyper-intense, min-labile (one period of tearfulness). mood really anxious. denies SI/HI/AVH currently. Assessment & Plan Assessment & Plan (1) Suicidal ideation: Status: Acute Code(s): R45.851 - Suicidal ideations (2) Arachnoid cyst: Status: Acute Code(s): G93.0 - Cerebral cysts (3) Meningioma: Status: Acute Code(s): D32.9 - Benign neoplasm of meninges, unspecified (4) Major depressive disorder, recurrent severe without psychotic features: Status: Acute Code(s): F33.2 - Major depressive disorder, recurrent severe without psychotic features Plan DC klonopin due to long half-life and slow onset. use xanax 0.5 Q4H PRN severe anxiety. pt not interested in other medications, but rather ECT. medical clearance, EKG ordered. Dr. Epperson notified. neuro consult for arachnoid cyst and meningioma Dx; assess for any complications for ECT. if pt is cleared, begin ECT, refer to outpt psych, discharge to finish ECT course. Patient educated on: medication risk/benefits and ECT Reason for continued inpatient stay Substantial Risk for: harm to self, inability to function and med/psych decompensation Statement Statement: I have reviewed the history and physical and performed a pertinent examination on my patient. No changes have occurred unless specified. If the History and Physical was not performed prior to admission, the Hospitalist's service will be consulted for completing the admission physical. Time Spent With Patient Time: Total time managing care of this patient today __70__ minutes.
[2022-04-28] MEDS: ALPRAZolam 0.5 MG TABLET PO ×3 (01:07→10:20)
[2022-04-28 10:02] VITALS: BP 128/84; PULSE 88; RESP 16; TEMP 36.3; O2SAT 98
[2022-04-28 11:48] VITALS: BMI 20.2
--- NOTE | 2022-04-28 15:23 | HO.PSYCHPN ---
Subjective Subjective Date of Service: 04/28/22 Reason For Visit: SI/ Depression Subjective Notes: Conditional Voluntary and 3 Day Healthcare Proxy: No Interim History: The case was reviewed with Dr. Palmer Gavin chart reviewed and past chart reviewed including records regarding past ECT treatments. The patient was treated in the past with bifrontal ECT generally improved after 3 treatments he did have Seroquel p.r.n. for anxiety at the time he was treated bifrontally at 100% at that time etomidate was used at 16-20 mg succinylcholine was 140 mg it appeared that the patient required narcotics p.r.n. for headache The patient had this had 2-3 courses of ECT which is always been helpful. He has been off medications for many years except for clonazepam occasionally taking 0.5-1 mg at bedtime. Patient did have COVID a number of weeks back appears to have had a agitated depression after that. No other clear triggers he has never responded to medication any has also tried intravenous ketamine in the past. 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 Neuro consult was completed did not feel this was a contraindication to ECT no evidence of edema did not feel there was any risk of increased intracranial pressure The patient states he has many coping skills to deal with depression outside of the hospital and was hoping to discharge as soon as possible he is having a difficult time in the milieu which she finds very stimulating and agitating Medication Compliance: Yes Attending Groups: No Review of Systems Medical consult reviewed neuro consult reviewed Medical Review of Systems: unchanged Mental Status Exam Mental Status Exam Patient Appearance: Disheveled Patient Orientation: Person, Place, Time and Situation Level of Consciousness: Awake Patient Behavior: Talkative, Good Eye Contact and Pacing Mood Description: Depressed, Anxious and Apprehensive Affect Description: Constricted, Depressed and Anxious Patient Cognition Impaired: Yes Ability to Follow Directions: Good Speech Pattern: Perseverating and Rapid Memory Description: Intact Hallucinations: None Delusions: Not Present Thought Process: Rumination Depressive Symptoms: Increased Anxiety, Insomnia and Difficulty Concentrating Abnormal Motor Activity Signs and Symptoms: Hyperactivity Judgement and Insight: Patient agitated somewhat distraught Diagnostics Vital Signs (24Hr): Vital Signs - 24 hr 04/27/22 18:00 01/19/23 10:02 Temperature 97.2 F 97.3 F Pulse Rate 62 88 Respiratory Rate 16 16 Blood Pressure 119/81 128/84 Pulse Oximetry 96 98 Oxygen Delivery Method Room Air Room Air BMI result Body Mass Index 20.2 Labs 04/25/22 21:23 04/25/22 21:23 Imaging Radiology Impressions: ITS Impressions Head CT 04/28/22 10:53 IMPRESSION: * No acute intracranial pathology. * 1.4 cm partially calcified meningioma is observed in the parasagittal region superior to the right parietal lobe. * Findings consistent with arachnoid cyst located within the posterior fossa superior to the cerebellar vermis. Medications Medications Current Medications Acetaminophen (Acetaminophen 325 Mg Tablet) 650 mg PO Q6H PRN PRN Reason: Headache/Pain Mild Scale (1-3) Al Hydroxide/Mg Hydroxide (Magnesium Hydrox/Alum Hydrox 30 Ml Oral.Susp) 30 ml PO Q6H PRN PRN Reason: Heartburn/Nausea Alprazolam (Alprazolam 0.5 Mg Tablet) 0.5 mg PO Q4H PRN PRN Reason: severe anxiety Last Admin: 04/28/22 10:20 Dose: 0.5 mg Clonazepam (Clonazepam 0.5 Mg Tablet) 0.5 mg PO BID PRN PRN Reason: anxiety Last Admin: 04/26/22 21:28 Dose: 0.5 mg Magnesium Hydroxide (Milk Of Magnesia 30 Ml Oral.Susp) 30 ml PO DAILY PRN PRN Reason: Constipation Nicotine (Nicotine 21 Mg Patch.Td24) 21 mg TRANSDERMA DAILY PRN PRN Reason: smoking cessation Nicotine Polacrilex (Nicotine Polacrilex 2 Mg Gum) 4 mg BUCCAL Q2H PRN PRN Reason: Nicotine Cravings Pharmacy Consult (Consult Rx Perform Med Rec) 1 each MISCELLANE ONCE PRN PRN Reason: Consult order Quetiapine Fumarate (Quetiapine Fumarate 25 Mg Tablet) 25 mg PO Q4H PRN PRN Reason: Anxiety Quetiapine Fumarate (Quetiapine Fumarate 25 Mg Tablet) 25 mg PO BEDTIME ROMA Trazodone HCl (Trazodone Hcl 50 Mg Tablet) 50 mg PO BEDTIME PRN PRN Reason: Insomnia Allergies Allergies Allergy/AdvReac Type Severity Reaction Status Date / Time No Known Allergies Allergy Mild NKA Unverified 02/04/22 12:27 Assessment & Plan Assessment & Plan (1) Meningioma: Status: Acute Code(s): D32.9 - Benign neoplasm of meninges, unspecified Assessment and Plan: 71 years old man with chronic depression being considered for electroconvulsive therapy. This consultation was requested for ECT clearance. His noncontrast head CT revealed a calcified meningioma and an arachnoid cyst. These lesions do not particularly increases risk from electroconvulsive therapy. No premedication is needed. Meningioma is calcified and asymptomatic. Arachnoid cyst is asymptomatic also. No further imaging or intervention is needed. (2) Arachnoid cyst: Status: Acute Code(s): G93.0 - Cerebral cysts (3) Major depressive disorder, recurrent severe without psychotic features: Status: Acute Code(s): F33.2 - Major depressive disorder, recurrent severe without psychotic features Plan Patient with history of agitated depression that only in the past has responded to ECT. Patient voluntarily requesting ECT unit in agitated anxious ruminating state denies active self-harming thoughts. Has a difficult time inpatient out of his routine. We discussed some increased risk with meningioma an arachnoid cyst both probably have been there for many years and patient has tolerated ECT in past. We did discuss that there is some increased risk of confusion or other adverse affects at a somewhat higher risk although he has a small meningioma. Patient is hoping to be discharged later in the day after ECT he did have COVID approximately 5-6 weeks ago does appear to be medically stable I did discuss with the patient need to stay further if he were to have significant adverse effects from ECT risks benefits alternatives reviewed with patient he strongly wishes to continue in hope to transition to outpatient ECT and is accepting of outpatient referrals for psychiatric care Patient educated on: diagnosis, medication risk/benefits, ECT and medical condition Informed Consent: understands Reason for contiued inpatient stay Substantial Risk for: inability to function and rapid decompensation Time Spent With Patient Time: Total time managing care of this patient today 50____ minutes. Patient seen case reviewed with Dr. Pollock from Neurology past records review literature reviewed regarding ECT with meningioma and arachnoid cyst
[2022-04-28 15:40] LABS: MANUAL DIFF FLAG NO
[2022-04-28 15:47] LABS: Basophils Percent Auto 0.2 % (0-2); Eosinophils Percent Auto 0.6 % (0-4); Hematocrit 42.9 % (42.0-52.0); Hemoglobin 14.4 g/dl (14.0-18.0); Imm Gran Abs Auto 0.01 X10*3/uL (0.00-0.03); Imm Gran Pct Auto 0.2 % (0.0-0.4); Lymphocytes Absolute Auto 1.4 X10*3/uL (1.2-4.9); Lymphocytes Percent Auto 27.6 % (20-40); Mean Corpuscular HGB Conc 33.6 g/dl (31.0-36.0); Mean Corpuscular Hemoglobin 30.6 pg (27.0-33.0); Mean Corpuscular Volume 91.3 fL (80.0-98.0); Mean Platelet Volume 9.4 fL (9.4-12.4); Monocytes Absolute Auto 0.5 X10*3/uL (0.1-1.2); Monocytes Percent Auto 9.1 % (2-11); Neutrophils Absolute Auto 3.2 x10*3/uL (2.0-8.3); Neutrophils Percent Auto 62.3 % (45-73); Platelet Count 184 X10*3/uL (160-400); Red Cell Distribution Width 12.6 % (11.0-16.0); White Blood Count 5.1 X10*3/uL (4.8-10.8)
[2022-04-28 16:09] LABS: Estimated Average Glucose 108 mg/dL; Hemoglobin A1c % 5.4 %
[2022-04-28] MEDS: Milk of Magnesia 30 ML ORAL.SUSP PO (16:20)
[2022-04-28] MEDS: clonazePAM 0.5 MG TABLET PO (17:18)
[2022-04-28 18:00] VITALS: BP 125/79; PULSE 61; RESP 16; TEMP 36.3; O2SAT 98
[2022-04-28] MEDS: QUEtiapine Fumarate 25 MG TABLET PO (20:02)
[2022-04-29] VITALS (10 sets, daily range): BP systolic 109–142; BP diastolic 77–93; PULSE 58–84; RESP 13–20; TEMP 36.2–36.7; O2SAT 94–100
[2022-04-29] MEDS: QUEtiapine Fumarate 25 MG TABLET PO ×4 (01:25→13:13)
--- NOTE | 2022-04-29 09:01 | HO.ANESPROP2 ---
[facility] Active Problems Active Problems: All Active Problems (Updated 04/27/22 @ 20:41 by Wil Chakraborty) Major depressive disorder, recurrent severe without psychotic features (Acute) Routine medical exam (Acute) Suicidal ideation (Acute) Depression (Acute) Migraine (Acute) Arachnoid cyst (Acute) Meningioma (Acute) Past Medical History Medical History Arachnoid cyst Depression History of electroconvulsive therapy Memory loss Meningioma Family History Family history of problems with anesthesia: No Surgical History Surgical History H/O eye surgery History of Problems with Anesthesia: No Social History Social History Household Members: Other Household Members Other:: house mates Housing: Apartment Alcohol intake: unknown Patient Tobacco Use Status: Never used Tobacco Smoked in Last 30 Days: No Use of substances other than those prescribed or required for medical reasons: No Currently Displaying Signs/Symptoms of Drug Intoxication Withdrawal: No Have you been hit, kicked, punched, or otherwise hurt by someone within the past year? If so, by whom?: No Do you feel safe in your current relationship?: No Current Relationship Is there a partner from a previous relationship who is making you feel unsafe now?: No Are you made to feel afraid or neglected: No Advance Directives: No Advance Directives Information Provided: No Do you have thoughts of harming others: None Do you have a plan to hurt others: No Plan Recently lost weight without trying: No How much weight loss: 2-13 pounds Eating poorly because of decreased appetite: Yes Nutrition screen score: 2 Nutrition Risks: No Nutritional Risk Poor oral hygiene: No service: No Sexual orientation: Don't Know Meds Allergies Allergy/AdvReac Type Severity Reaction Status Date / Time No Known Allergies Allergy Mild NKA Unverified 02/04/22 12:27 Active Medications: Current Medications Acetaminophen (Acetaminophen 325 Mg Tablet) 650 mg PO Q6H PRN PRN Reason: Headache/Pain Mild Scale (1-3) Al Hydroxide/Mg Hydroxide (Magnesium Hydrox/Alum Hydrox 30 Ml Oral.Susp) 30 ml PO Q6H PRN PRN Reason: Heartburn/Nausea Clonazepam (Clonazepam 0.5 Mg Tablet) 0.5 mg PO BID PRN PRN Reason: anxiety Last Admin: 04/26/22 21:28 Dose: 0.5 mg Lactated Ringer's (Lr) 1,000 mls @ 50 mls/hr IVCONT .Q20H ROMA Magnesium Hydroxide (Milk Of Magnesia 30 Ml Oral.Susp) 30 ml PO DAILY PRN PRN Reason: Constipation Last Admin: 04/28/22 16:20 Dose: 30 ml Nicotine (Nicotine 21 Mg Patch.Td24) 21 mg TRANSDERMA DAILY PRN PRN Reason: smoking cessation Nicotine Polacrilex (Nicotine Polacrilex 2 Mg Gum) 4 mg BUCCAL Q2H PRN PRN Reason: Nicotine Cravings Pharmacy Consult (Consult Rx Perform Med Rec) 1 each MISCELLANE ONCE PRN PRN Reason: Consult order Quetiapine Fumarate (Quetiapine Fumarate 25 Mg Tablet) 25 mg PO Q4H PRN PRN Reason: Anxiety Last Admin: 04/29/22 05:13 Dose: 25 mg Quetiapine Fumarate (Quetiapine Fumarate 25 Mg Tablet) 25 mg PO BEDTIME ROMA Last Admin: 04/28/22 20:02 Dose: 25 mg Trazodone HCl (Trazodone Hcl 50 Mg Tablet) 50 mg PO BEDTIME PRN PRN Reason: Insomnia Home Medications Medication Instructions Recorded Confirmed Last Taken Type galcanezumab-gnlm 120 mg/mL 120 mg subcut Q28D 02/04/22 04/25/22 04/10/22 History subcutaneous syringe (Emgality) clonazepam 0.5 mg tablet 1 tab PO BID PRN anxiety 04/25/22 04/25/22 Unknown History Exam Exam Date and Time: April 29, 2022 0901 Height,Weight and Vital Signs: Height 5 ft 11 in Weight 65.941 kg Last Vital Signs Temp 97.8 F 04/29/22 08:43 Pulse 71 04/29/22 08:43 Resp 20 04/29/22 08:43 BP 109/82 04/29/22 08:43 Pulse Ox 98 04/29/22 08:43 O2 Del Method 04/29/22 08:43 Pertinent Lab Results Pertinent Lab Results: Laboratory Tests 04/25/22 04/25/22 04/25/22 21:23 21:23 21:23 WBC 3.4 L RBC 4.45 L Hgb 13.4 L Hct 39.8 L MCV 89.4 MCH 30.1 MCHC 33.7 RDW 12.5 Plt Count 150 L MPV 9.1 L Immature Gran % (Auto) 0.3 Neut % (Auto) 64.6 Lymph % (Auto) 24.7 [place] % (Auto) 8.9 Eos % (Auto) 0.9 Baso % (Auto) 0.6 Lymph # (Auto) 0.8 L [place] # (Auto) 0.3 Eos # (Auto) 0.0 Baso # (Auto) 0.0 Abs Immat Gran (auto) 0.01 Absolute Neuts (auto) 2.2 Absolute Nucleated RBC 0.000 Nucleated RBC % (auto) 0.0 Sodium 140 Potassium 3.6 Chloride 104 Carbon Dioxide 30 H Anion Gap 10 L BUN 16 Creatinine 1.26 Estim Creat Clear Calc 53.4 Estimated GFR 56 Random Glucose 126 H Estimat Average Glucose Hemoglobin A1c % Calcium 8.9 Total Bilirubin 0.3 AST 17 ALT 15 Alkaline Phosphatase 62 Troponin I High Sens Total Protein 5.9 L Albumin 3.8 Urine Color Urine Appearance Urine pH Ur Specific [place] Urine Protein Urine Glucose (UA) Urine Ketones Urine Blood Urine Nitrite Ur Leukocyte Esterase Urine Opiates Screen Urine Fentanyl Screen Ur Barbiturates Screen Ur Phencyclidine Scrn Ur Amphetamines Screen U Benzodiazepines Scrn Urine Cocaine Screen U Marijuana (THC) Screen Ethyl Alcohol < 10 COVID-19 (GUNNAR) Positive A COVID-19 Clin Com See Note 04/25/22 04/26/22 04/26/22 23:15 02:56 02:57 WBC RBC Hgb Hct MCV MCH MCHC RDW Plt Count MPV Immature Gran % (Auto) Neut % (Auto) Lymph % (Auto) [place] % (Auto) Eos % (Auto) Baso % (Auto) Lymph # (Auto) [place] # (Auto) Eos # (Auto) Baso # (Auto) Abs Immat Gran (auto) Absolute Neuts (auto) Absolute Nucleated RBC Nucleated RBC % (auto) Sodium Potassium Chloride Carbon Dioxide Anion Gap BUN Creatinine Estim Creat Clear Calc Estimated GFR Random Glucose Estimat Average Glucose Hemoglobin A1c % Calcium Total Bilirubin AST ALT Alkaline Phosphatase Troponin I High Sens 4.5 Total Protein Albumin Urine Color Yellow Urine Appearance Clear Urine pH 5.5 Ur Specific [place] 1.015 Urine Protein Negative Urine Glucose (UA) Negative Urine Ketones Negative Urine Blood Negative Urine Nitrite Negative Ur Leukocyte Esterase Negative Urine Opiates Screen Not Detected Urine Fentanyl Screen Not Detected Ur Barbiturates Screen Not Detected Ur Phencyclidine Scrn Not Detected Ur Amphetamines Screen Not Detected U Benzodiazepines Scrn Not Detected Urine Cocaine Screen Not Detected U Marijuana (THC) Screen Not Detected Ethyl Alcohol COVID-19 (GUNNAR) COVID-19 Clin Com 04/28/22 04/28/22 15:36 15:36 WBC 5.1 RBC 4.70 Hgb 14.4 Hct 42.9 MCV 91.3 MCH 30.6 MCHC 33.6 RDW 12.6 Plt Count 184 MPV 9.4 Immature Gran % (Auto) 0.2 Neut % (Auto) 62.3 Lymph % (Auto) 27.6 [place] % (Auto) 9.1 Eos % (Auto) 0.6 Baso % (Auto) 0.2 Lymph # (Auto) 1.4 [place] # (Auto) 0.5 Eos # (Auto) 0.0 Baso # (Auto) 0.0 Abs Immat Gran (auto) 0.01 Absolute Neuts (auto) 3.2 Absolute Nucleated RBC 0.000 Nucleated RBC % (auto) 0.0 Sodium Potassium Chloride Carbon Dioxide Anion Gap BUN Creatinine Estim Creat Clear Calc Estimated GFR Random Glucose Estimat Average Glucose 108 Hemoglobin A1c % 5.4 Calcium Total Bilirubin AST ALT Alkaline Phosphatase Troponin I High Sens Total Protein Albumin Urine Color Urine Appearance Urine pH Ur Specific [place] Urine Protein Urine Glucose (UA) Urine Ketones Urine Blood Urine Nitrite Ur Leukocyte Esterase Urine Opiates Screen Urine Fentanyl Screen Ur Barbiturates Screen Ur Phencyclidine Scrn Ur Amphetamines Screen U Benzodiazepines Scrn Urine Cocaine Screen U Marijuana (THC) Screen Ethyl Alcohol COVID-19 (GUNNAR) COVID-19 Clin Com Airway Mallampati Class: II (Cap laterally) TM Dist: >3cm Neck ROM: Full Heart: rrr Lungs: cta Assessment and Plan Assessment Anesthesia Assessment: Anesthesia Plan Discussed and Chart Reviewed Final Anesthetic Review Family History of Problems with Anesthesia: No History of Problems with Anesthesia: No NPO: Yes ASA Class: III Final Preanesthetic Review: No Changes in Pt Med Stat, Meds/Allgs Chart Reviewed and Consent Obtained/Reviewed Patient Risk: Intermediate Procedure Risk: Intermediate Anesthetic Plan Anesthetic Plan: GA Disposition: Standard PACU
--- NOTE | 2022-04-29 09:17 | MHC.SHP ---
Pre-Procedural Eval Section A Date of Service: 04/29/22 Changes since office visit: Yes Patient answered all questions; No Cold of Flu in the past 2 weeks, No New Medical Problems and No Changes in Medication The History & Physical has been completed within 30 days and I have reviewed it.: Yes Section B Chief Complaint: SI/ Depression Allergies: Allergies Allergy/AdvReac Type Severity Reaction Status Date / Time No Known Allergies Allergy Mild NKA Unverified 02/04/22 12:27 Plan I have reviewed the history and physical and performed a pertinent physical examination on my patient. No changes have occurred unless specified. Time Spent With Patient Time: Total time managing care of this patient today ____ minutes.
--- NOTE | 2022-04-29 11:26 | HO.ECTPROC ---
ECT Procedure Note Diagnosis/Treatment Date of Service: 04/29/22 Diagnosis: Major Depressive Disorder Current Treatment Number: 3 Treatment: Series Interval Clinical Notes: pt with agitated dep sx severe anxiety he is where of some increase risk with small meningioma Time: Total time managing care of this patient today ____ minutes. ECT Settings Device: THYMATRON DGx Electrode Placement: Bifrontal Program/Pulse Width: 0.25 Energy Percent: 100 Seizure Duration By EEG (in seconds): 49 Medications Administration General Anesthetic: Etomidate (16) Muscle Relaxant: Succinylcholine (120) Ancillary Medications Analgesics: Torodol - Pre ECT (15) Anti-emetics: Zofran - Pre ECT (4) Miscillaneous Medications: Propofol (30) Airway Management Airway Management: Bag Mask Ventilation Treatment Recommendations No Changes Recommended: No change Notes: Patient did have Seroquel 25 mg 2 hours prior to procedure this seemed to be helpful will change to outpatient Pt Tolerated Procedure w/o Issue: Yes
[2022-04-29] MEDS: Acetaminophen 325 MG TABLET 650 MG PO (11:50)
[2022-04-29] MEDS: oxyCODONE HCl Immed Release 5 MG TABLET PO (11:51)
[2022-04-29] MEDS: clonazePAM 0.5 MG TABLET PO (13:13)
--- NOTE | 2022-04-29 23:18 | PM.PSYDC ---
DS: Providers Provider Date of Service: 04/29/22 Date of admission: 04/26/22 19:03 Date of discharge: 04/29/22 Primary care physician: Nonstaff Physician Attending physician on admission: Wil Chakraborty Consults: 04/27/22 12:12 Consult to Hospitalist Routine Consulting Provider: Hospitalist Reason For Exam: ECT clearance 04/27/22 14:10 Consult to Neurology Routine Consulting Provider: [facility] Reason for consultation: new Dx meningioma, needs ECT Has provider been notified: No Attending physician on discharge: Akhil Epperson DS: Diagnosis Discharge Diagnosis (1) Meningioma: Status: Acute (2) Arachnoid cyst: Status: Acute (3) Major depressive disorder, recurrent severe without psychotic features: Status: Acute DS: Medications Discharge Medications Home Medications: Home Medications Medication Instructions Recorded Confirmed galcanezumab-gnlm 120 mg/mL 120 mg subcut Q28D 02/04/22 04/25/22 subcutaneous syringe (Emgality) clonazepam 0.5 mg tablet 1 tab PO BID PRN anxiety 04/25/22 04/25/22 Previous Rx's Medication Instructions Recorded quetiapine 25 mg tablet (Seroquel) 25 mg PO TID PRN anxiety #30 tabs 04/29/22 Mental Status Exam Mental Status Exam Patient Appearance: Disheveled Patient Orientation: Person, Place, Time and Situation Level of Consciousness: Awake Patient Behavior: Talkative, Good Eye Contact and Pacing Mood Description: Depressed, Anxious and Apprehensive Affect Description: Constricted, Depressed and Anxious Patient Cognition Impaired: Yes Ability to Follow Directions: Good Speech Pattern: Perseverating and Rapid Memory Description: Intact Hallucinations: None Delusions: Not Present Thought Process: Rumination Thought Content: positive for Perseveration Depressive Symptoms: Increased Anxiety, Insomnia and Difficulty Concentrating Abnormal Motor Activity Signs and Symptoms: Hyperactivity Judgement and Insight: Patient future oriented less agitated Data Data Completed and Pending Completed studies during hospitalization [Text1]: 04/25/22 04/25/22 04/25/22 21:23 21:23 21:23 WBC 3.4 L RBC 4.45 L Hgb 13.4 L Hct 39.8 L MCV 89.4 MCH 30.1 MCHC 33.7 RDW 12.5 Plt Count 150 L MPV 9.1 L Immature Gran % (Auto) 0.3 Neut % (Auto) 64.6 Lymph % (Auto) 24.7 [place] % (Auto) 8.9 Eos % (Auto) 0.9 Baso % (Auto) 0.6 Lymph # (Auto) 0.8 L [place] # (Auto) 0.3 Eos # (Auto) 0.0 Baso # (Auto) 0.0 Abs Immat Gran (auto) 0.01 Absolute Neuts (auto) 2.2 Absolute Nucleated RBC 0.000 Nucleated RBC % (auto) 0.0 Sodium 140 Potassium 3.6 Chloride 104 Carbon Dioxide 30 H Anion Gap 10 L BUN 16 Creatinine 1.26 Estim Creat Clear Calc 53.4 Estimated GFR 56 Random Glucose 126 H Estimat Average Glucose Hemoglobin A1c % Calcium 8.9 Total Bilirubin 0.3 AST 17 ALT 15 Alkaline Phosphatase 62 Troponin I High Sens Total Protein 5.9 L Albumin 3.8 Urine Color Urine Appearance Urine pH Ur Specific [place] Urine Protein Urine Glucose (UA) Urine Ketones Urine Blood Urine Nitrite Ur Leukocyte Esterase Urine Opiates Screen Urine Fentanyl Screen Ur Barbiturates Screen Ur Phencyclidine Scrn Ur Amphetamines Screen U Benzodiazepines Scrn Urine Cocaine Screen U Marijuana (THC) Screen Ethyl Alcohol < 10 COVID-19 (GUNNAR) Positive A COVID-19 Clin Com See Note 04/25/22 04/26/22 04/26/22 23:15 02:56 02:57 WBC RBC Hgb Hct MCV MCH MCHC RDW Plt Count MPV Immature Gran % (Auto) Neut % (Auto) Lymph % (Auto) [place] % (Auto) Eos % (Auto) Baso % (Auto) Lymph # (Auto) [place] # (Auto) Eos # (Auto) Baso # (Auto) Abs Immat Gran (auto) Absolute Neuts (auto) Absolute Nucleated RBC Nucleated RBC % (auto) Sodium Potassium Chloride Carbon Dioxide Anion Gap BUN Creatinine Estim Creat Clear Calc Estimated GFR Random Glucose Estimat Average Glucose Hemoglobin A1c % Calcium Total Bilirubin AST ALT Alkaline Phosphatase Troponin I High Sens 4.5 Total Protein Albumin Urine Color Yellow Urine Appearance Clear Urine pH 5.5 Ur Specific [place] 1.015 Urine Protein Negative Urine Glucose (UA) Negative Urine Ketones Negative Urine Blood Negative Urine Nitrite Negative Ur Leukocyte Esterase Negative Urine Opiates Screen Not Detected Urine Fentanyl Screen Not Detected Ur Barbiturates Screen Not Detected Ur Phencyclidine Scrn Not Detected Ur Amphetamines Screen Not Detected U Benzodiazepines Scrn Not Detected Urine Cocaine Screen Not Detected U Marijuana (THC) Screen Not Detected Ethyl Alcohol COVID-19 (GUNNAR) COVID-19 Clin Com 04/28/22 04/28/22 15:36 15:36 WBC 5.1 RBC 4.70 Hgb 14.4 Hct 42.9 MCV 91.3 MCH 30.6 MCHC 33.6 RDW 12.6 Plt Count 184 MPV 9.4 Immature Gran % (Auto) 0.2 Neut % (Auto) 62.3 Lymph % (Auto) 27.6 [place] % (Auto) 9.1 Eos % (Auto) 0.6 Baso % (Auto) 0.2 Lymph # (Auto) 1.4 [place] # (Auto) 0.5 Eos # (Auto) 0.0 Baso # (Auto) 0.0 Abs Immat Gran (auto) 0.01 Absolute Neuts (auto) 3.2 Absolute Nucleated RBC 0.000 Nucleated RBC % (auto) 0.0 Sodium Potassium Chloride Carbon Dioxide Anion Gap BUN Creatinine Estim Creat Clear Calc Estimated GFR Random Glucose Estimat Average Glucose 108 Hemoglobin A1c % 5.4 Calcium Total Bilirubin AST ALT Alkaline Phosphatase Troponin I High Sens Total Protein Albumin Urine Color Urine Appearance Urine pH Ur Specific [place] Urine Protein Urine Glucose (UA) Urine Ketones Urine Blood Urine Nitrite Ur Leukocyte Esterase Urine Opiates Screen Urine Fentanyl Screen Ur Barbiturates Screen Ur Phencyclidine Scrn Ur Amphetamines Screen U Benzodiazepines Scrn Urine Cocaine Screen U Marijuana (THC) Screen Ethyl Alcohol COVID-19 (GUNNAR) COVID-19 Clin Com Imaging Diagnostic Imaging Impressions Head CT 04/28/22 10:53 IMPRESSION: * No acute intracranial pathology. * 1.4 cm partially calcified meningioma is observed in the parasagittal region superior to the right parietal lobe. * Findings consistent with arachnoid cyst located within the posterior fossa superior to the cerebellar vermis. DS: Summary Hospital Course Hospital Course: [place] [address] Psychiatry Admission Note (In)Signed Patient: Bk De La Paz#: [id number]: 1Acct:[id number]/Sex: 71 / MLoc:[id number]: Wil Chakraborty cc: ~ HPI Date of Service: 04/27/22 Chief Complaint: SI/ Depression HPI Narrative: pt self-presents to [facility] for evaluation, accompanied by a female friend. he reports since having COVID in recent weeks his mood has broken and he has become severely depressed, such that he has been having suicidal thoughts. he is not currently in mental health treatment and is interested in starting on a course of ECT and then obtaining a referral for psychiatrist, then discharging to complete his ECT course outpatient. he is concerned that if he is unable to start ECT imminently, he may commit suicide. Past Psychiatric History: hosps: reports several hospitalizations about 15 years ago, stating he has been inpatient at [facility], [facility], and [facility] per DC summary in medical records, pt was [place] [facility] [place] and received [place]. SA: pt reports one attempt in his 20s and another in his 40s, via overdose and cutting. SIB: denies any Hx. not currently in outpatient Tx. does not wish to take medications but has found ECT very helpful. Medical Evaluation Reviewed: Yes [facility] Medical History Arachnoid cyst Depression History of electroconvulsive therapy Memory loss Meningioma Surgical History H/O eye surgery Family History: brother - completed suicide mother - severe depression Social History: lives in [place]. rents an apartment but has essentially been living with a platonic female friend recently, in her home that she owns. they share dogs at the home. has 1 son, 33 yo. . 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 retired since ALEN made his business far more difficult. states he has a law degree but does not practice. Substance History: cocaine - reports h/o use, last about 10 years ago (coinciding with his most recent [facility] [place] tobacco - denies alcohol - denies cannabis - i hate that. denies use of other substances of abuse. Trauma History: none reported Diagnostics Vital Signs (24Hr): Vital Signs - 24 hr 04/27/22 06:00 04/27/22 18:00 Temperature 98.1 F 97.2 F Pulse Rate 68 62 Respiratory Rate 16 Blood Pressure 127/73 119/81 Pulse Oximetry 96 96 Oxygen Delivery Method Room Air Room Air BMI result Body Mass Index 21.6 Labs 04/25/22 21:23 document embedded image 04/25/22 21:23 document embedded image Labs: Laboratory Results - last 48 hr 04/25/22 04/25/22 04/25/22 21:23 21:23 21:23 WBC 3.4 L RBC 4.45 L Hgb 13.4 L Hct 39.8 L MCV 89.4 MCH 30.1 MCHC 33.7 RDW 12.5 Plt Count 150 L MPV 9.1 L Immature Gran % (Auto) 0.3 Neut % (Auto) 64.6 Lymph % (Auto) 24.7 [place] % (Auto) 8.9 Eos % (Auto) 0.9 Baso % (Auto) 0.6 Lymph # (Auto) 0.8 L [place] # (Auto) 0.3 Eos # (Auto) 0.0 Baso # (Auto) 0.0 Abs Immat Gran (auto) 0.01 Absolute Neuts (auto) 2.2 Absolute Nucleated RBC 0.000 Nucleated RBC % (auto) 0.0 Sodium 140 Potassium 3.6 Chloride 104 Carbon Dioxide 30 H Anion Gap 10 L BUN 16 Creatinine 1.26 Estim Creat Clear Calc 53.4 Estimated GFR 56 Random Glucose 126 H Calcium 8.9 Total Bilirubin 0.3 AST 17 ALT 15 Alkaline Phosphatase 62 Troponin I High Sens Total Protein 5.9 L Albumin 3.8 Urine Color Urine Appearance Urine pH Ur Specific [place] Urine Protein Urine Glucose (UA) Urine Ketones Urine Blood Urine Nitrite Ur Leukocyte Esterase Urine Opiates Screen Urine Fentanyl Screen Ur Barbiturates Screen Ur Phencyclidine Scrn Ur Amphetamines Screen U Benzodiazepines Scrn Urine Cocaine Screen U Marijuana (THC) Screen Ethyl Alcohol < 10 COVID-19 (GUNNAR) Positive A COVID-19 Clin Com See Note 04/25/22 04/26/22 04/26/22 23:15 02:56 02:57 WBC RBC Hgb Hct MCV MCH MCHC RDW Plt Count MPV Immature Gran % (Auto) Neut % (Auto) Lymph % (Auto) [place] % (Auto) Eos % (Auto) Baso % (Auto) Lymph # (Auto) [place] # (Auto) Eos # (Auto) Baso # (Auto) Abs Immat Gran (auto) Absolute Neuts (auto) Absolute Nucleated RBC Nucleated RBC % (auto) Sodium Potassium Chloride Carbon Dioxide Anion Gap BUN Creatinine Estim Creat Clear Calc Estimated GFR Random Glucose Calcium Total Bilirubin AST ALT Alkaline Phosphatase Troponin I High Sens 4.5 Total Protein Albumin Urine Color Yellow Urine Appearance Clear Urine pH 5.5 Ur Specific [place] 1.015 Urine Protein Negative Urine Glucose (UA) Negative Urine Ketones Negative Urine Blood Negative Urine Nitrite Negative Ur Leukocyte Esterase Negative Urine Opiates Screen Not Detected Urine Fentanyl Screen Not Detected Ur Barbiturates Screen Not Detected Ur Phencyclidine Scrn Not Detected Ur Amphetamines Screen Not Detected U Benzodiazepines Scrn Not Detected Urine Cocaine Screen Not Detected U Marijuana (THC) Screen Not Detected Ethyl Alcohol COVID-19 (GUNNAR) COVID-19 Clin Com Meds/Allergies Meds Home Medications Medication Instructions Recorded Confirmed Type galcanezumab-gnlm 120 mg/mL 120 mg subcut Q28D 02/04/22 04/25/22 History subcutaneous syringe (Emgality) clonazepam 0.5 mg tablet 1 tab PO BID PRN anxiety 04/25/22 04/25/22 History Allergies Allergies Allergy/AdvReac Type Severity Reaction Status Date / Time No Known Allergies Allergy Mild NKA Unverified 02/04/22 12:27 Mental Status Exam Mental Status Exam Narrative: disheveled, dressed in [employer] Jin fleece jacket, mussed hair. thin. PMA of frequent repositionings and arm movements. cooperative. speech incr in rate and amount, decr latency. nml prosody and loudness. thoughts linear and logical, for the most part. affect constricted, hyper-intense, min-labile (one period of tearfulness). mood really anxious. denies SI/HI/AVH currently. Assessment & Plan Assessment & Plan (1) Suicidal ideation: Status: Acute Code(s): R45.851 - Suicidal ideations (2) Arachnoid cyst: Status: Acute Code(s): G93.0 - Cerebral cysts (3) Meningioma: Status: Acute Code(s): D32.9 - Benign neoplasm of meninges, unspecified (4) Major depressive disorder, recurrent severe without psychotic features: Status: Acute Code(s): F33.2 - Major depressive disorder, recurrent severe without psychotic features Plan DC klonopin due to long half-life and slow onset. use xanax 0.5 Q4H PRN severe anxiety. pt not interested in other medications, but rather ECT. medical clearance, EKG ordered. Dr. Epperson notified. neuro consult for arachnoid cyst and meningioma Dx; assess for any complications for ECT. if pt is cleared, begin ECT, refer to outpt psych, discharge to finish ECT course. Patient educated on: medication risk/benefits and ECT Reason for continued inpatient stay Substantial Risk for: harm to self, inability to function and med/psych decompensation Statement Statement: I have reviewed the history and physical and performed a pertinent examination on my patient. No changes have occurred unless specified. If the History and Physical was not performed prior to admission, the Hospitalist's service will be consulted for completing the admission physical. HOSPITAL COURSE The patient was admitted Son of psychiatry on a conditional voluntary he was initially admitted to [facility] and then transferred to the [facility] psych Unit. Patient has known long history of an agitated depression and had been stable up until couple months prior to admission. The patient did state that he had a long history of a meningioma and a subarachnoid cyst and this was imaged prior to ECT and a small meningioma was noted dense subarachnoid cyst. According to the patient these were not new findings had been stable for number of years med tolerated ECT previously without difficulty. The patient had failed in the past numerous medication trials and TMS ketamine was requesting ECT. Was discussed with him that he was at the radically somewhat higher risk but there was no significant mass effect or edema with the meningioma and neurology reviewed the films and examined the patient and felt there was no recent with hold ECT. The patient was continued on clonazepam and started on Seroquel 25 q.4h p.r.n. which had been helpful to him previously years ago. Patient did not have a present psychiatric provider and had not needed 1 for number of years. The patient did have 1 ECT prior to discharge and tolerated this well. He was seen with to close friends prior to discharge which remain part of his support system. He patient and friends understood if the patient were to worsen after discharge or to have more intense symptoms including active suicidal thoughts which she was denying prior to discharge that he would call crisis or go to the emergency room. The patient felt comfortable at time of discharge did explain to him he could be leading to early usually takes about of 3 treatments at least in the past before he had symptom relief. He did seem better on the combination of clonazepam and Seroquel he had a difficult time with the structure of the inpatient unit seem to cause more anxiety irritability given the patient's temperament and he was discharged after the 1st ECT treatment on April 29 2022. With patient has ECT scheduled 3 days prior to discharge has an outpatient and will continue series as an outpatient. Referral was also [facility] to [facility]. Status at Discharge Functional status at discharge: independent ambulation Overall status at discharge: patient is not back to baseline Time Spent with Patient Time attestation: Total time managing care of this patient today __45__ minutes. Time spent: Greater than 30 minutes Specific discharge activities: Meeting with patient ECT completed meeting with patient and outpatient support system prior to discharge Discharge Plan Discharge Anticipated Discharge Date/Time: 04/29/22 15:58 Patient Disposition: Home, Self-Care Discharge Diagnosis: recurrent depression severe Referrals: Gordon Schrader (psychiatrist) [Other] - 05/19/22 3:00 pm (Telehealth appointment) Therapy [Other] (You have been put on a waitlist for therapy, which is about 4-6 weeks) Leslie Denis MD [Physician] - 1 Week (Office will call pt with appointment date/time) Discharge Medications: New quetiapine [Seroquel] 25 mg tablet 25 mg PO TID PRN (Reason: anxiety) Qty: 30 0RF Continued clonazepam 0.5 mg tablet 1 tab PO BID PRN (Reason: anxiety) Emgality Syringe 120 mg/mL syringe 120 mg subcut Q28D Discharge Orders: Discharge Order (Routine); Ordered 04/29/22 Ordered By: Akhil Epperson Diet: Advance to usual diet Activity on Discharge: As tolerated Stand Alone Forms: Patient Portal Discharge page Activity Restrictions/Additional Instructions: no driving Care Plan Goals: stabilize mood decrease anxiety no self harming thought Health Concerns: agitated depression self harm thoughts menigioma small Plan of Treatment: ect oupt if you feel unsafe go to er or call crisis team your next treatment is 05/02/22 please come in at 6 am you are scheduled for 6 treements at this time 05/04/,05/06///05/[address] whitfield will decide on further treatment mouna stokes for agitated depression symptoms f/u [facility] psychiatry and medication Assessment: pt remains depressed anxious denies self harm tolerated first ect well Discharge Date/Time: 04/29/22 16:40
== END 2022-04-29 16:40 | disposition home or self-care (01) | DRG 885 ==
LOC: HO.ED 04-26 16:08 → HO.PADLT16 04-26 19:08 → HO.PGERI 04-27 17:56
PROVIDERS: Physician Assistant; Admitting Provider Psychiatry & Neurology Psychiatry; Emergency Provider Emergency Medicine; Visit Provider Psychiatry & Neurology Psychiatry
PROC: (CPT 90870; principal; 2022-04-29 16:00)
DX: F33.2 Major depressive disorder, recurrent severe without psychotic features (principal); U07.1 COVID-19; D32.9 Benign neoplasm of meninges, unspecified; G93.0 Cerebral cysts; Z20.822 Contact with and (suspected) exposure to COVID-19; Z79.899 Other long term (current) drug therapy; G43.909 Migraine, unspecified, not intractable, without status migrainosus
CPT/HCPCS: 36415; 70450; 80053; 80307; 81003; 82077; 83036; 84484; 85025; 87635; 90870; 93005; 99285; J0330; J1885; J2405

== ENCOUNTER 2022-05-02 05:50 | Day surgery (SDC) | payer OTHER, SELFPAY ==
[2022-05-02 06:31] VITALS: BP 132/76; PULSE 55; RESP 16; TEMP 36.1; O2SAT 95; BMI 20.9
--- NOTE | 2022-05-02 07:03 | MHC.SHP ---
Pre-Procedural Eval Section A Date of Service: 05/02/22 The patient is an INPATIENT: No Changes since office visit: No Cold of Flu in the past 2 weeks, No New Medical Problems, No Changes in Medication and No Patient answered all questions The History & Physical has been completed within 30 days and I have reviewed it.: Yes Section B Chief Complaint: depression Allergies: Allergies Allergy/AdvReac Type Severity Reaction Status Date / Time No Known Allergies Allergy Mild NKA Unverified 02/04/22 12:27 Plan I have reviewed the history and physical and performed a pertinent physical examination on my patient. No changes have occurred unless specified. Time Spent With Patient Time: Total time managing care of this patient today ____ minutes.
--- NOTE | 2022-05-02 07:03 | HO.ECTPROC ---
ECT Procedure Note Diagnosis/Treatment Date of Service: 05/02/22 Diagnosis: Major Depressive Disorder Previous ECT Date: 04/29/22 Current Treatment Number: 2 Treatment: Series Interval Clinical Notes: The patient denied side effects with previous ECT. His mood is still dysphoric but he feels slightly better. Time: Total time managing care of this patient today _30___ minutes. ECT Settings Device: THYMATRON DGx Electrode Placement: Bifrontal Program/Pulse Width: 0.25 Energy Percent: 100 Seizure Duration By EEG (in seconds): 49 By Motor Observation (in seconds): 24 Medications Administration General Anesthetic: Etomidate (16) Muscle Relaxant: Succinylcholine (120) Ancillary Medications Analgesics: Torodol - Pre ECT Anti-emetics: Zofran - Pre ECT Miscillaneous Medications: Propofol Airway Management Airway Management: Bag Mask Ventilation Treatment Recommendations No Changes Recommended: No change Pt Tolerated Procedure w/o Issue: Yes
[2022-05-02 07:10] LABS: COVID-19 Test Positive (Negative)
[2022-05-02 07:44] VITALS: BP 114/84; PULSE 50; RESP 16; TEMP 36.8; O2SAT 100
--- NOTE | 2022-05-02 07:45 | HO.ANESPROP2 ---
[facility] Active Problems Active Problems: All Active Problems (Updated 04/29/22 @ 11:25 by Akhil Epperson MD) Major depressive disorder, recurrent severe without psychotic features (Acute) Routine medical exam (Acute) Depression (Acute) Migraine (Acute) Arachnoid cyst (Acute) Meningioma (Acute) Past Medical History Medical History (Updated 04/29/22 @ 11:25 by Akhil Epperson MD) Arachnoid cyst Depression History of electroconvulsive therapy Memory loss Meningioma Suicidal ideation Family History Family history of problems with anesthesia: No Surgical History Surgical History H/O eye surgery History of Problems with Anesthesia: No Social History Social History Household Members: Other Household Members Other:: house mates Housing: Apartment Alcohol intake: unknown Patient Tobacco Use Status: Never used Tobacco Advance Directives: No Advance Directives Information Provided: Yes service: No Sexual orientation: Don't Know Meds Allergies Allergy/AdvReac Type Severity Reaction Status Date / Time No Known Allergies Allergy Mild NKA Unverified 02/04/22 12:27 Home Medications Medication Instructions Recorded Confirmed Last Taken Type galcanezumab-gnlm 120 mg/mL 120 mg subcut Q28D 02/04/22 04/25/22 04/10/22 History subcutaneous syringe (Emgality) clonazepam 0.5 mg tablet 1 tab PO BID PRN anxiety 04/25/22 04/25/22 Unknown History Exam Exam Date and Time: May 02, 2022 0745 Height,Weight and Vital Signs: Height 5 ft 11 in Weight 68.039 kg Last Vital Signs Temp 97 F 05/02/22 06:31 Pulse 55 05/02/22 06:31 Resp 16 05/02/22 06:31 BP 132/76 05/02/22 06:31 Pulse Ox 95 05/02/22 06:31 O2 Del Method 05/02/22 06:31 Pertinent Lab Results Pertinent Lab Results: Laboratory Tests 05/02/22 06:20 COVID-19 (GUNNAR) Positive A COVID-19 Clin Com See Note Airway Mallampati Class: II TM Dist: >3cm Assessment and Plan Assessment Anesthesia Assessment: Anesthesia Plan Discussed and Chart Reviewed Final Anesthetic Review Family History of Problems with Anesthesia: No History of Problems with Anesthesia: No NPO: Yes ASA Class: II Final Preanesthetic Review: No Changes in Pt Med Stat, Meds/Allgs Chart Reviewed, Consent Obtained/Reviewed and Anes Risks/Benef Reviewed Patient Risk: Low Procedure Risk: Low Anesthetic Plan Anesthetic Plan: GA Disposition: Standard PACU
[2022-05-02 07:49] VITALS: BP 133/74; PULSE 66; RESP 12; O2SAT 100
[2022-05-02 07:54] VITALS: BP 122/81; PULSE 64; RESP 12; O2SAT 99
[2022-05-02 07:59] VITALS: BP 137/74; PULSE 60; RESP 11; O2SAT 100
[2022-05-02] MEDS: Acetaminophen 325 MG TABLET 650 MG PO (08:10)
[2022-05-02] MEDS: oxyCODONE HCl Immed Release 5 MG TABLET PO (08:10)
[2022-05-02 08:18] VITALS: BP 137/84; PULSE 59; RESP 18; TEMP 36.7; O2SAT 100
== END 2022-05-02 09:32 | disposition home or self-care (01) ==
PROVIDERS: PCP Psychiatry & Neurology Psychiatry; Visit Provider Psychiatry & Neurology Psychiatry
PROC: (CPT 90870; principal; 2022-05-02 15:30)
DX: F33.2 Major depressive disorder, recurrent severe without psychotic features (principal); G43.909 Migraine, unspecified, not intractable, without status migrainosus; D32.9 Benign neoplasm of meninges, unspecified; G93.0 Cerebral cysts; R45.851 Suicidal ideations; Z79.899 Other long term (current) drug therapy; Z20.822 Contact with and (suspected) exposure to COVID-19
CPT/HCPCS: 87635; 90870; J0330; J1885; J2405

== ENCOUNTER 2022-05-04 05:58 | Day surgery (SDC) | payer MEDICARE, SELFPAY ==
[2022-05-04] VITALS (7 sets, daily range): BP systolic 113–141; BP diastolic 77–107; PULSE 50–65; RESP 14–20; TEMP 36.2; O2SAT 96–100; BMI 20.9
[2022-05-04 06:39] LABS: COVID-19 Test Negative (Negative); IDNOW Serial# 08D9AD1C
--- NOTE | 2022-05-04 07:27 | MHC.SHP ---
Pre-Procedural Eval Section A Date of Service: 05/04/22 The patient is an INPATIENT: No Changes since office visit: Yes New Medical Problems, Yes Changes in Medication and Yes Patient answered all questions; No Cold of Flu in the past 2 weeks The History & Physical has been completed within 30 days and I have reviewed it.: Yes Section B Chief Complaint: depression Allergies: Allergies Allergy/AdvReac Type Severity Reaction Status Date / Time No Known Allergies Allergy Mild NKA Unverified 02/04/22 12:27 Plan I have reviewed the history and physical and performed a pertinent physical examination on my patient. No changes have occurred unless specified. Time Spent With Patient Time: Total time managing care of this patient today ____ minutes.
--- NOTE | 2022-05-04 07:28 | HO.ECTPROC ---
ECT Procedure Note Diagnosis/Treatment Date of Service: 05/04/22 Diagnosis: Major Depressive Disorder Previous ECT Date: 05/02/22 Current Treatment Number: 3 Treatment: Series Interval Clinical Notes: pt had double vision briefly with seroquel he states now d/c not appearing related to ect will monitor feeling better Time: Total time managing care of this patient today ____ minutes. ECT Settings Device: THYMATRON DGx Electrode Placement: Bifrontal Program/Pulse Width: 0.25 Energy Percent: 100 Seizure Duration By EEG (in seconds): 64 By Motor Observation (in seconds): 24 Medications Administration General Anesthetic: Etomidate (16) Muscle Relaxant: Succinylcholine (120) Ancillary Medications Analgesics: Torodol - Pre ECT and Narcotics (oxycodone ) Anti-emetics: Zofran - Pre ECT Miscillaneous Medications: Propofol Airway Management Airway Management: Bag Mask Ventilation Treatment Recommendations No Changes Recommended: No change Energy Percent: 65 Notes: had transient post ect confusion consider 2 x week monitor for cognitive changes feeling better
--- NOTE | 2022-05-04 07:52 | P.CONAN_ITS ---
[facility] Active Problems Active Problems: All Active Problems (Updated 04/29/22 @ 11:25 by Akhil Epperson MD) Major depressive disorder, recurrent severe without psychotic features (Acute) Routine medical exam (Acute) Depression (Acute) Migraine (Acute) Arachnoid cyst (Acute) Meningioma (Acute) Past Medical History Medical History (Updated 04/29/22 @ 11:25 by Akhil Epperson MD) Arachnoid cyst Depression History of electroconvulsive therapy Memory loss Meningioma Suicidal ideation Family History Family history of problems with anesthesia: No Surgical History Surgical History H/O eye surgery History of Problems with Anesthesia: No Social History Social History Household Members: Other Household Members Other:: house mates Housing: Apartment Alcohol intake: unknown Patient Tobacco Use Status: Never used Tobacco Advance Directives: No Advance Directives Information Provided: Yes service: No Sexual orientation: Don't Know Meds Allergies Allergy/AdvReac Type Severity Reaction Status Date / Time No Known Allergies Allergy Mild NKA Unverified 02/04/22 12:27 Home Medications Medication Instructions Recorded Confirmed Last Taken Type galcanezumab-gnlm 120 mg/mL 120 mg subcut Q28D 02/04/22 04/25/22 04/10/22 History subcutaneous syringe (Emgality) clonazepam 0.5 mg tablet 1 tab PO BID PRN anxiety 04/25/22 04/25/22 Unknown History Exam Exam Date and Time: May 04, 2022 0752 Height,Weight and Vital Signs: Height 5 ft 11 in Weight 68.039 kg Last Vital Signs Temp 97.2 F 05/04/22 06:30 Pulse 50 05/04/22 06:30 Resp 20 05/04/22 06:30 BP 141/82 H 05/04/22 06:30 Pulse Ox 97 05/04/22 06:30 O2 Del Method 05/04/22 06:30 Pertinent Lab Results Pertinent Lab Results: Laboratory Tests 05/04/22 06:13 COVID-19 ([facility]) Negative COVID-19 Clin Com See Note Airway Mallampati Class: II TM Dist: >3cm Neck ROM: Full Assessment and Plan Assessment Anesthesia Assessment: Anesthesia Plan Discussed and Chart Reviewed Final Anesthetic Review Family History of Problems with Anesthesia: No History of Problems with Anesthesia: No NPO: Yes ASA Class: II Final Preanesthetic Review: No Changes in Pt Med Stat, Meds/Allgs Chart Reviewed, Consent Obtained/Reviewed and Anes Risks/Benef Reviewed Patient Risk: Low Procedure Risk: Low Anesthetic Plan Anesthetic Plan: GA Disposition: Standard PACU
[2022-05-04] MEDS: Acetaminophen 325 MG TABLET 650 MG PO (08:20)
[2022-05-04] MEDS: oxyCODONE HCl Immed Release 5 MG TABLET PO (08:20)
== END 2022-05-04 09:23 | disposition home or self-care (01) ==
PROVIDERS: Visit Provider Psychiatry & Neurology Psychiatry
PROC: (CPT 90870; principal; 2022-05-04 15:30)
DX: F33.2 Major depressive disorder, recurrent severe without psychotic features (principal); R41.0 Disorientation, unspecified; D32.9 Benign neoplasm of meninges, unspecified; G93.0 Cerebral cysts; G43.909 Migraine, unspecified, not intractable, without status migrainosus; R41.3 Other amnesia; Z20.822 Contact with and (suspected) exposure to COVID-19; Z79.899 Other long term (current) drug therapy
CPT/HCPCS: 87635; 90870; J0330; J1885; J2405

== ENCOUNTER 2022-05-06 06:01 | Day surgery (SDC) | payer MEDICARE, SELFPAY ==
[2022-05-06] VITALS (7 sets, daily range): BP systolic 114–159; BP diastolic 71–93; PULSE 51–61; RESP 12–19; TEMP 36.1–36.4; O2SAT 94–100; BMI 25.8
[2022-05-06 06:36] LABS: COVID-19 Test Positive (Negative); IDNOW Serial# 9DB6401D
--- NOTE | 2022-05-06 07:08 | MHC.SHP ---
Pre-Procedural Eval Section A Date of Service: 05/06/22 The patient is an INPATIENT: No Changes since office visit: No Cold of Flu in the past 2 weeks, No New Medical Problems, No Changes in Medication and No Patient answered all questions The History & Physical has been completed within 30 days and I have reviewed it.: Yes Section B Chief Complaint: depression Allergies: Allergies Allergy/AdvReac Type Severity Reaction Status Date / Time No Known Allergies Allergy Mild NKA Unverified 02/04/22 12:27 Plan I have reviewed the history and physical and performed a pertinent physical examination on my patient. No changes have occurred unless specified. Time Spent With Patient Time: Total time managing care of this patient today ____ minutes.
--- NOTE | 2022-05-06 07:09 | HO.ECTPROC ---
ECT Procedure Note Diagnosis/Treatment Date of Service: 05/06/22 Diagnosis: Major Depressive Disorder Previous ECT Date: 05/04/22 Current Treatment Number: 5 Treatment: Series Interval Clinical Notes: The patient reported improvement of mood, no side effects with the previous ECT. Time: Total time managing care of this patient today __30__ minutes. ECT Settings Device: THYMATRON DGx Electrode Placement: Bifrontal Program/Pulse Width: 0.25 Energy Percent: 100 Seizure Duration By EEG (in seconds): 28 By Motor Observation (in seconds): 0 Medications Administration General Anesthetic: Etomidate (60) Muscle Relaxant: Succinylcholine (120) Ancillary Medications Analgesics: Torodol - Pre ECT Anti-emetics: Zofran - Pre ECT Airway Management Airway Management: Bag Mask Ventilation Treatment Recommendations No Changes Recommended: No change Pt Tolerated Procedure w/o Issue: Yes
--- NOTE | 2022-05-06 07:22 | HO.ANESPROP2 ---
HPI - Anesthesia Eval Consult details Narrative: 71 yo male patient for ECT PMFSH Active Problems Active Problems: All Active Problems (Updated 04/29/22 @ 11:25 by Akhil Epperson MD) Major depressive disorder, recurrent severe without psychotic features (Acute) Routine medical exam (Acute) Depression (Acute) Migraine (Acute) Arachnoid cyst (Acute) Meningioma (Acute) Past Medical History Medical History (Updated 04/29/22 @ 11:25 by Akhil Epperson MD) Arachnoid cyst Depression History of electroconvulsive therapy Memory loss Meningioma Suicidal ideation Family History Family history of problems with anesthesia: No Surgical History Surgical History H/O eye surgery History of Problems with Anesthesia: No Social History Social History Household Members: Other Household Members Other:: house mates Housing: Apartment Alcohol intake: unknown Patient Tobacco Use Status: Never used Tobacco service: No Sexual orientation: Don't Know Meds Allergies Allergy/AdvReac Type Severity Reaction Status Date / Time No Known Allergies Allergy Mild NKA Unverified 02/04/22 12:27 Home Medications Medication Instructions Recorded Confirmed Last Taken Type galcanezumab-gnlm 120 mg/mL 120 mg subcut Q28D 02/04/22 04/25/22 04/10/22 History subcutaneous syringe (Emgality) Exam Exam Date and Time: May 06, 2022 0722 Height,Weight and Vital Signs: Height 5 ft 8 in Weight 77.111 kg Last Vital Signs Temp 97 F 05/06/22 06:29 Pulse 60 05/06/22 06:29 Resp 18 05/06/22 06:29 BP 139/81 05/06/22 06:29 Pulse Ox 94 05/06/22 06:29 O2 Del Method 05/06/22 06:29 Pertinent Lab Results Pertinent Lab Results: Laboratory Tests 05/06/22 06:13 COVID-19 ([facility]) Positive A COVID-19 Clin Com See Note Airway Mallampati Class: II TM Dist: >3cm Neck ROM: Full Loose/Missing/Broken Teeth: No (Denies loose, broken teeth) Heart: RRR Lungs: CTAB Assessment and Plan Assessment Anesthesia Assessment: Anesthesia Plan Discussed Final Anesthetic Review Family History of Problems with Anesthesia: No History of Problems with Anesthesia: No NPO: Yes ASA Class: III Final Preanesthetic Review: No Changes in Pt Med Stat, Meds/Allgs Chart Reviewed, Consent Obtained/Reviewed and Anes Risks/Benef Reviewed Patient Risk: Intermediate Procedure Risk: Intermediate Assessment/Block/Sedation in SS: Assess/Block/Sedation-SS Anesthetic Plan Anesthetic Plan: GA Disposition: Standard PACU
== END 2022-05-06 09:35 | disposition home or self-care (01) ==
PROVIDERS: Visit Provider Psychiatry & Neurology Psychiatry
PROC: (CPT 90870; principal; 2022-05-06 08:00)
DX: F33.9 Major depressive disorder, recurrent, unspecified (principal); G93.0 Cerebral cysts; D32.9 Benign neoplasm of meninges, unspecified; G43.909 Migraine, unspecified, not intractable, without status migrainosus; R41.3 Other amnesia; Z79.899 Other long term (current) drug therapy; Z20.822 Contact with and (suspected) exposure to COVID-19
CPT/HCPCS: 87635; 90870; J0330; J0461; J1885; J2405

== ENCOUNTER 2022-05-09 05:43 | Day surgery (SDC) | payer MEDICARE, SELFPAY ==
[2022-05-09] VITALS (7 sets, daily range): BP systolic 113–156; BP diastolic 75–85; PULSE 60–78; RESP 15–20; TEMP 36.1–36.9; O2SAT 94–100; BMI 20.9
[2022-05-09 07:06] LABS: COVID-19 Test Negative (Negative); IDNOW Serial# BCCEAD1C
--- NOTE | 2022-05-09 07:08 | MHC.SHP ---
Pre-Procedural Eval Section A Date of Service: 05/09/22 The patient is an INPATIENT: No Changes since office visit: No Cold of Flu in the past 2 weeks, No New Medical Problems, No Changes in Medication and No Patient answered all questions The History & Physical has been completed within 30 days and I have reviewed it.: Yes Section B Chief Complaint: depression Allergies: Allergies Allergy/AdvReac Type Severity Reaction Status Date / Time No Known Allergies Allergy Mild NKA Unverified 02/04/22 12:27 Plan I have reviewed the history and physical and performed a pertinent physical examination on my patient. No changes have occurred unless specified. Time Spent With Patient Time: Total time managing care of this patient today ____ minutes.
--- NOTE | 2022-05-09 07:08 | HO.ECTPROC ---
ECT Procedure Note Diagnosis/Treatment Date of Service: 05/09/22 Diagnosis: Major Depressive Disorder Previous ECT Date: 05/06/22 Current Treatment Number: 6 Treatment: Series Interval Clinical Notes: The patient reported improvement of dysphoria. No side effects with the last ECT. Time: Total time managing care of this patient today _20___ minutes. ECT Settings Device: THYMATRON DGx Electrode Placement: Bifrontal Program/Pulse Width: 0.25 Energy Percent: 100 Seizure Duration By EEG (in seconds): 63 By Motor Observation (in seconds): 0 Medications Administration General Anesthetic: Etomidate (16) Muscle Relaxant: Succinylcholine (120) Ancillary Medications Analgesics: Torodol - Pre ECT Anti-emetics: Zofran - Pre ECT Miscillaneous Medications: Propofol Airway Management Airway Management: Bag Mask Ventilation Treatment Recommendations No Changes Recommended: No change Pt Tolerated Procedure w/o Issue: Yes
--- NOTE | 2022-05-09 13:47 | HO.POSTANES ---
Post Anesthesia Evaluation Post Anesthesia Evaluation Vital Signs: Vital Signs Temp Pulse Resp BP Pulse Ox O2 Del Method O2 Flow Rate 05/09/22 08:17 98.0 F 75 18 136/82 100 Nasal Cannula 05/09/22 08:02 70 15 133/77 100 Room Air 05/09/22 07:47 78 16 113/76 100 Room Air 05/09/22 07:42 75 18 121/75 100 Nasal Cannula with ETCO2 2 05/09/22 07:37 75 18 142/80 H 100 Nasal Cannula with ETCO2 2 05/09/22 07:32 98.5 F 60 16 156/85 H 99 Nasal Cannula with ETCO2 2 05/09/22 06:50 97 F 70 20 145/84 H 94 Room Air Anesthesia: General Mental Status: Awake Pain Control: Satisfactory Nausea/Vomiting: None Hydration: Adequate Anesthesia-Related Issues: No Anes. Related Issues
== END 2022-05-09 09:02 | disposition home or self-care (01) ==
PROVIDERS: Visit Provider Psychiatry & Neurology Psychiatry
PROC: (CPT 90870; principal; 2022-05-09 07:00)
DX: F32.9 Major depressive disorder, single episode, unspecified (principal)
CPT/HCPCS: 87635; 90870; J0330; J1885; J2405

== ENCOUNTER 2022-05-11 05:56 | Day surgery (SDC) | payer MEDICARE, SELFPAY ==
[2022-05-11] VITALS (7 sets, daily range): BP systolic 114–124; BP diastolic 67–86; PULSE 53–67; RESP 16–19; TEMP 36.6–36.9; O2SAT 98–100; BMI 22.0
--- NOTE | 2022-05-11 06:36 | P.CONAN_ITS ---
[facility] Active Problems Active Problems: All Active Problems (Updated 05/07/22 @ 00:02 by Background Daemon) Major depressive disorder, recurrent severe without psychotic features (Acute) Migraine (Acute) Arachnoid cyst (Acute) Meningioma (Acute) Past Medical History Medical History (Updated 05/07/22 @ 00:02 by Background Daemon) Arachnoid cyst Depression History of electroconvulsive therapy Memory loss Meningioma Routine medical exam Suicidal ideation Family History Family history of problems with anesthesia: No Surgical History Surgical History H/O eye surgery History of Problems with Anesthesia: No Social History Social History Household Members: Other Household Members Other:: house mates Housing: Apartment Alcohol intake: unknown Patient Tobacco Use Status: Never used Tobacco Advance Directives: No Advance Directives Information Provided: Yes service: No Sexual orientation: Don't Know Meds Allergies Allergy/AdvReac Type Severity Reaction Status Date / Time No Known Allergies Allergy Mild NKA Unverified 02/04/22 12:27 Home Medications Medication Instructions Recorded Confirmed Last Taken Type galcanezumab-gnlm 120 mg/mL 120 mg subcut Q28D 02/04/22 04/25/22 04/10/22 History subcutaneous syringe (Emgality) Exam Exam Date and Time: May 11, 2022 0636 Airway Mallampati Class: II (Cap temporary) TM Dist: >3cm Neck ROM: Full Heart: rrr Lungs: cta Assessment and Plan Assessment Anesthesia Assessment: Anesthesia Plan Discussed and Chart Reviewed Final Anesthetic Review Family History of Problems with Anesthesia: No History of Problems with Anesthesia: No NPO: Yes ASA Class: III Final Preanesthetic Review: No Changes in Pt Med Stat, Meds/Allgs Chart Reviewed and Consent Obtained/Reviewed Patient Risk: Intermediate Procedure Risk: Intermediate Anesthetic Plan Anesthetic Plan: GA Disposition: Standard PACU
[2022-05-11 06:45] LABS: COVID-19 Test Negative (Negative); IDNOW Serial# 16C4AD1C
--- NOTE | 2022-05-11 07:01 | MHC.SHP ---
Pre-Procedural Eval Section A Date of Service: 05/11/22 The patient is an INPATIENT: No Changes since office visit: No Cold of Flu in the past 2 weeks, No New Medical Problems, No Changes in Medication and No Patient answered all questions The History & Physical has been completed within 30 days and I have reviewed it.: Yes Section B Chief Complaint: depression Allergies: Allergies Allergy/AdvReac Type Severity Reaction Status Date / Time No Known Allergies Allergy Mild NKA Unverified 02/04/22 12:27 Plan I have reviewed the history and physical and performed a pertinent physical examination on my patient. No changes have occurred unless specified. Time Spent With Patient Time: Total time managing care of this patient today ____ minutes.
--- NOTE | 2022-05-11 07:02 | HO.ECTPROC ---
ECT Procedure Note Diagnosis/Treatment Date of Service: 05/11/22 Diagnosis: Major Depressive Disorder Previous ECT Date: 05/09/22 Current Treatment Number: 7 Treatment: Series Interval Clinical Notes: The patient reported improvement of dysphoria, on his last ECT he complained of heartburn after the procedure, probably since he was bagged or Toradol. Time: Total time managing care of this patient today __30__ minutes. ECT Settings Device: THYMATRON DGx Electrode Placement: Bifrontal Program/Pulse Width: 0.25 Energy Percent: 100 Seizure Duration By EEG (in seconds): 38 By Motor Observation (in seconds): 0 Medications Administration General Anesthetic: Etomidate (14) Muscle Relaxant: Succinylcholine (120) Ancillary Medications Analgesics: Torodol - Pre ECT Anti-emetics: Zofran - Pre ECT Miscillaneous Medications: Propofol Airway Management Airway Management: Bag Mask Ventilation Treatment Recommendations No Changes Recommended: No change Pt Tolerated Procedure w/o Issue: Yes
== END 2022-05-11 08:49 | disposition home or self-care (01) ==
PROVIDERS: Visit Provider Psychiatry & Neurology Psychiatry
PROC: (CPT 90870; principal; 2022-05-11 07:00)
DX: F33.2 Major depressive disorder, recurrent severe without psychotic features (principal); G93.0 Cerebral cysts; D32.9 Benign neoplasm of meninges, unspecified; G43.909 Migraine, unspecified, not intractable, without status migrainosus; Z79.899 Other long term (current) drug therapy; Z20.822 Contact with and (suspected) exposure to COVID-19
CPT/HCPCS: 87635; 90870; J0330; J1885; J2405

== ENCOUNTER 2022-05-13 05:51 | Day surgery (SDC) | payer MEDICARE, SELFPAY ==
[2022-05-13] VITALS (7 sets, daily range): BP systolic 114–137; BP diastolic 70–80; PULSE 61–70; RESP 13–20; TEMP 36.1–36.8; O2SAT 95–100; BMI 19.6
--- NOTE | 2022-05-13 06:47 | P.CONAN_ITS ---
[facility] Active Problems Active Problems: All Active Problems (Updated 05/07/22 @ 00:02 by Background Daemon) Major depressive disorder, recurrent severe without psychotic features (Acute) Migraine (Acute) Arachnoid cyst (Acute) Meningioma (Acute) Past Medical History Medical History (Updated 05/07/22 @ 00:02 by Background Daemon) Arachnoid cyst Depression History of electroconvulsive therapy Memory loss Meningioma Routine medical exam Suicidal ideation Family History Family history of problems with anesthesia: No Surgical History Surgical History H/O eye surgery History of Problems with Anesthesia: No Social History Social History Household Members: Other Household Members Other:: house mates Housing: Apartment Alcohol intake: unknown Patient Tobacco Use Status: Never used Tobacco Advance Directives: No Advance Directives Information Provided: Yes service: No Sexual orientation: Don't Know Meds Allergies Allergy/AdvReac Type Severity Reaction Status Date / Time No Known Allergies Allergy Mild NKA Unverified 02/04/22 12:27 Home Medications Medication Instructions Recorded Confirmed Last Taken Type galcanezumab-gnlm 120 mg/mL 120 mg subcut Q28D 02/04/22 04/25/22 04/10/22 History subcutaneous syringe (Emgality) Exam Exam Date and Time: May 13, 2022 0647 Height,Weight and Vital Signs: Height 6 ft Weight 65.771 kg Last Vital Signs Temp 96.9 F 05/13/22 06:41 Pulse 66 05/13/22 06:41 Resp 20 05/13/22 06:41 BP 116/77 05/13/22 06:41 Pulse Ox 95 05/13/22 06:41 O2 Del Method 05/13/22 06:41 Airway Mallampati Class: II (Temporary cap bottom cap) TM Dist: >3cm Neck ROM: Full Heart: rrr Lungs: cta Assessment and Plan Assessment Anesthesia Assessment: Anesthesia Plan Discussed and Chart Reviewed Final Anesthetic Review Family History of Problems with Anesthesia: No History of Problems with Anesthesia: No NPO: Yes ASA Class: III Final Preanesthetic Review: No Changes in Pt Med Stat, Meds/Allgs Chart Reviewed and Consent Obtained/Reviewed Patient Risk: Intermediate Procedure Risk: Intermediate Anesthetic Plan Anesthetic Plan: GA Disposition: Standard PACU
[2022-05-13 06:53] LABS: COVID-19 Test Negative (Negative); IDNOW Serial# 16C4AD1C
--- NOTE | 2022-05-13 07:26 | MHC.SHP ---
Pre-Procedural Eval Section A Date of Service: 05/13/22 The patient is an INPATIENT: No Changes since office visit: No Cold of Flu in the past 2 weeks, No New Medical Problems, No Changes in Medication and No Patient answered all questions The History & Physical has been completed within 30 days and I have reviewed it.: Yes Section B Chief Complaint: depression Allergies: Allergies Allergy/AdvReac Type Severity Reaction Status Date / Time No Known Allergies Allergy Mild NKA Unverified 02/04/22 12:27 Plan I have reviewed the history and physical and performed a pertinent physical examination on my patient. No changes have occurred unless specified. Time Spent With Patient Time: Total time managing care of this patient today ____ minutes.
--- NOTE | 2022-05-13 07:27 | HO.ECTPROC ---
ECT Procedure Note Diagnosis/Treatment Date of Service: 05/13/22 Diagnosis: Major Depressive Disorder Previous ECT Date: 05/13/22 Treatment: Series Interval Clinical Notes: The patient reported improvement of dysphoria, mild headache with the last ECT that we didn't give Ketorolac due to heartburn. We will change ECT q2w Time: Total time managing care of this patient today __30__ minutes. ECT Settings Device: THYMATRON DGx Electrode Placement: Bifrontal Program/Pulse Width: 0.25 Energy Percent: 100 Seizure Duration By EEG (in seconds): 32 Medications Administration General Anesthetic: Etomidate (14) Muscle Relaxant: Succinylcholine (120) Ancillary Medications Analgesics: Torodol - Pre ECT Anti-emetics: Zofran - Pre ECT Miscillaneous Medications: Propofol Airway Management Airway Management: Bag Mask Ventilation Treatment Recommendations No Changes Recommended: No change Notes: We will schedule ECT in 2 weeks Pt Tolerated Procedure w/o Issue: Yes
== END 2022-05-13 09:00 | disposition home or self-care (01) ==
PROVIDERS: Visit Provider Psychiatry & Neurology Psychiatry
PROC: (CPT 90870; principal; 2022-05-13 08:00)
DX: F33.2 Major depressive disorder, recurrent severe without psychotic features (principal); G93.0 Cerebral cysts; D32.9 Benign neoplasm of meninges, unspecified; R41.3 Other amnesia; Z79.899 Other long term (current) drug therapy; Z20.822 Contact with and (suspected) exposure to COVID-19
CPT/HCPCS: 87635; 90870; J0330; J1885; J2405

== ENCOUNTER 2022-05-27 08:04 | Day surgery (SDC) | payer MEDICARE, SELFPAY ==
[2022-05-27] VITALS (7 sets, daily range): BP systolic 107–154; BP diastolic 71–86; PULSE 59–69; RESP 15–20; TEMP 36.3–37.6; O2SAT 100; BMI 18.3
--- NOTE | 2022-05-27 08:44 | HO.ANESPROP2 ---
[facility] Active Problems Active Problems: All Active Problems (Updated 05/07/22 @ 00:02 by Background Daemon) Major depressive disorder, recurrent severe without psychotic features (Acute) Migraine (Acute) Arachnoid cyst (Acute) Meningioma (Acute) Past Medical History Medical History (Updated 05/07/22 @ 00:02 by Background Daemon) Arachnoid cyst Depression History of electroconvulsive therapy Memory loss Meningioma Routine medical exam Suicidal ideation Family History Family history of problems with anesthesia: No Surgical History Surgical History H/O eye surgery History of Problems with Anesthesia: No Social History Social History Household Members: Other Household Members Other:: house mates Housing: Apartment Alcohol intake: unknown Patient Tobacco Use Status: Never used Tobacco Advance Directives: No Advance Directives Information Provided: Yes service: No Sexual orientation: Don't Know Meds Allergies Allergy/AdvReac Type Severity Reaction Status Date / Time No Known Allergies Allergy Mild NKA Unverified 02/04/22 12:27 Home Medications Medication Instructions Recorded Confirmed Last Taken Type galcanezumab-gnlm 120 mg/mL 120 mg subcut Q28D 02/04/22 04/25/22 04/10/22 History subcutaneous syringe (Emgality) Exam Exam Date and Time: May 27, 2022 0844 Height,Weight and Vital Signs: Height 6 ft Weight 61.235 kg Last Vital Signs Temp 97.3 F 05/27/22 08:33 Pulse 59 05/27/22 08:33 Resp 18 05/27/22 08:33 BP 133/81 05/27/22 08:33 Pulse Ox 100 05/27/22 08:33 Airway Mallampati Class: II (Cap lower left) TM Dist: >3cm Neck ROM: Full Heart: rrr Lungs: cta Assessment and Plan Assessment Anesthesia Assessment: Anesthesia Plan Discussed and Chart Reviewed Final Anesthetic Review Family History of Problems with Anesthesia: No History of Problems with Anesthesia: No NPO: Yes ASA Class: III Final Preanesthetic Review: No Changes in Pt Med Stat, Meds/Allgs Chart Reviewed and Consent Obtained/Reviewed Patient Risk: Intermediate Procedure Risk: Intermediate Anesthetic Plan Anesthetic Plan: GA Disposition: Standard PACU
[2022-05-27 08:47] LABS: COVID-19 Test Negative (Negative); IDNOW Serial# 16C4AD1C
--- NOTE | 2022-05-27 08:59 | MHC.SHP ---
Pre-Procedural Eval Section A Date of Service: 05/27/22 The patient is an INPATIENT: No Changes since office visit: Yes Patient answered all questions; No Cold of Flu in the past 2 weeks, No New Medical Problems and No Changes in Medication The History & Physical has been completed within 30 days and I have reviewed it.: Yes Section B Chief Complaint: Major depressive disorder, recurrent, Allergies: Allergies Allergy/AdvReac Type Severity Reaction Status Date / Time No Known Allergies Allergy Mild NKA Unverified 02/04/22 12:27 Plan I have reviewed the history and physical and performed a pertinent physical examination on my patient. No changes have occurred unless specified. Time Spent With Patient Time: Total time managing care of this patient today ____ minutes.
--- NOTE | 2022-05-27 09:22 | HO.ECTPROC ---
ECT Procedure Note Diagnosis/Treatment Date of Service: 05/27/22 Diagnosis: Major Depressive Disorder Previous ECT Date: 05/13/22 Treatment: Series Interval Clinical Notes: pt with marked improvement feels like himself denies ongoing side effects Time: Total time managing care of this patient today ____ minutes. ECT Settings Device: THYMATRON DGx Electrode Placement: Bifrontal Program/Pulse Width: 0.25 Energy Percent: 100 Seizure Duration By EEG (in seconds): 44 Medications Administration General Anesthetic: Etomidate (16) Muscle Relaxant: Succinylcholine (120) Ancillary Medications Analgesics: Torodol - Pre ECT Anti-emetics: Zofran - Pre ECT Miscillaneous Medications: Propofol Airway Management Airway Management: Bag Mask Ventilation Treatment Recommendations No Changes Recommended: No change Notes: We will schedule ECT in 4 weeks pt to call if inter tx difficulties Pt Tolerated Procedure w/o Issue: Yes
== END 2022-05-27 10:42 | disposition home or self-care (01) ==
PROVIDERS: Anesthesiology; Visit Provider Psychiatry & Neurology Psychiatry
PROC: (CPT 90870; principal; 2022-05-27 10:00)
DX: F33.9 Major depressive disorder, recurrent, unspecified (principal); G93.0 Cerebral cysts; D32.9 Benign neoplasm of meninges, unspecified; G43.909 Migraine, unspecified, not intractable, without status migrainosus; R41.3 Other amnesia; Z79.899 Other long term (current) drug therapy; Z20.822 Contact with and (suspected) exposure to COVID-19
CPT/HCPCS: 87635; 90870; J0330; J1885; J2405

== ENCOUNTER 2022-06-24 08:04 | Day surgery (SDC) | payer MEDICARE, SELFPAY ==
[2022-06-24 08:16] VITALS: BMI 19.6
[2022-06-24 08:17] VITALS: BP 146/77; PULSE 63; RESP 20; TEMP 36.4; O2SAT 99
--- NOTE | 2022-06-24 08:30 | HO.ANESPROP2 ---
[facility] Active Problems Active Problems: All Active Problems (Updated 05/07/22 @ 00:02 by Background Daemon) Major depressive disorder, recurrent severe without psychotic features (Acute) Migraine (Acute) Arachnoid cyst (Acute) Meningioma (Acute) Past Medical History Medical History (Updated 05/07/22 @ 00:02 by Background Daemon) Arachnoid cyst Depression History of electroconvulsive therapy Memory loss Meningioma Routine medical exam Suicidal ideation Family History Family history of problems with anesthesia: No Surgical History Surgical History H/O eye surgery History of Problems with Anesthesia: No Social History Social History Household Members: Other Household Members Other:: house mates Housing: Apartment Alcohol intake: unknown Patient Tobacco Use Status: Never used Tobacco Advance Directives: No Advance Directives Information Provided: Yes service: No Sexual orientation: Don't Know Meds Allergies Allergy/AdvReac Type Severity Reaction Status Date / Time No Known Allergies Allergy Mild NKA Unverified 02/04/22 12:27 Exam Exam Date and Time: June 24, 2022 0830 Height,Weight and Vital Signs: Height 6 ft Weight 65.771 kg Last Vital Signs Temp 97.6 F 06/24/22 08:17 Pulse 63 06/24/22 08:17 Resp 20 06/24/22 08:17 BP 146/77 H 06/24/22 08:17 Pulse Ox 99 06/24/22 08:17 O2 Del Method 06/24/22 08:17 Airway Mallampati Class: II TM Dist: >3cm Neck ROM: Full Heart: rrr Lungs: cta Assessment and Plan Assessment Anesthesia Assessment: Anesthesia Plan Discussed and Chart Reviewed Final Anesthetic Review Family History of Problems with Anesthesia: No History of Problems with Anesthesia: No NPO: Yes ASA Class: III Final Preanesthetic Review: No Changes in Pt Med Stat, Meds/Allgs Chart Reviewed and Consent Obtained/Reviewed Patient Risk: Intermediate Procedure Risk: Intermediate Anesthetic Plan Anesthetic Plan: GA Disposition: Standard PACU
[2022-06-24 08:58] LABS: COVID-19 Test Negative (Negative); IDNOW Serial# BCCEAD1C
[2022-06-24] MEDS: Lactated Ringers 1,000 ML 50 ML IVCONT (09:02)
--- NOTE | 2022-06-24 09:03 | P.HPSUR_ITS ---
Pre-Procedural Eval Section A Date of Service: 06/24/22 Section B Chief Complaint: Major depressive disorder, recurrent, severe with Details of Present Illness: recurrent depression Relevant Social History: None Present Medications: see Short Stay Collaborative assessment Allergies: Allergies Allergy/AdvReac Type Severity Reaction Status Date / Time No Known Allergies Allergy Mild NKA Unverified 02/04/22 12:27 Review of Systems Sugical H&P ROS: Negative: Cardiovascular and Respiratory and Yes, Specify: G astrointestinal Exam Surgical H&P Exam: Normal: Heart and Normal: Lungs Plan Diagnosis/Plan: Unchanged I have reviewed the history and physical and performed a pertinent physical examination on my patient. No changes have occurred unless specified. Time Spent With Patient Time: Total time managing care of this patient today ____ minutes.
--- NOTE | 2022-06-24 09:17 | HO.ECTPROC ---
ECT Procedure Note Diagnosis/Treatment Date of Service: 06/24/22 Diagnosis: Major Depressive Disorder Previous ECT Date: 05/27/22 Current Treatment Number: 7 Treatment: Other (continuation) Interval Clinical Notes: pt has relapse sx x 10 days Time: Total time managing care of this patient today ____ minutes. ECT Settings Device: THYMATRON DGx Electrode Placement: Bifrontal Program/Pulse Width: 0.25 Energy Percent: 100 Seizure Duration By EEG (in seconds): 69 Medications Administration General Anesthetic: Etomidate (16) Muscle Relaxant: Succinylcholine (120) Ancillary Medications Analgesics: Torodol - Pre ECT Anti-emetics: Zofran - Pre ECT Miscillaneous Medications: Propofol Airway Management Airway Management: Bag Mask Ventilation Treatment Recommendations No Changes Recommended: No change Notes: f/u tx 06/27/22 Pt Tolerated Procedure w/o Issue: Yes
[2022-06-24 09:21] VITALS: BP 128/68; PULSE 57; RESP 14; TEMP 36.3; O2SAT 100
[2022-06-24 09:26] VITALS: BP 135/76; PULSE 66; RESP 16; O2SAT 100
[2022-06-24 09:31] VITALS: BP 138/76; PULSE 71; RESP 16; O2SAT 98
[2022-06-24 09:36] VITALS: BP 135/83; PULSE 67; RESP 16; O2SAT 98
[2022-06-24 09:51] VITALS: BP 132/81; PULSE 64; RESP 15; TEMP 36.6; O2SAT 98
--- NOTE | 2022-06-24 10:34 | PC.NURSE ---
Pt asked encouraged to rest at home. verbalizes that he wants to walk dog in [place], encouraged not to due to anesthesia.
--- NOTE | 2022-06-24 10:35 | PC.NURSE ---
pt educated it would be against medical advice and verbalizes understanding.
== END 2022-06-24 10:30 | disposition home or self-care (01) ==
PROVIDERS: Visit Provider Psychiatry & Neurology Psychiatry
PROC: (CPT 90870; principal; 2022-06-24 09:30)
DX: F33.2 Major depressive disorder, recurrent severe without psychotic features (principal); F41.1 Generalized anxiety disorder; R10.13 Epigastric pain; Z68.20 Body mass index [BMI] 20.0-20.9, adult; R63.4 Abnormal weight loss; K21.9 Gastro-esophageal reflux disease without esophagitis; G93.0 Cerebral cysts; D32.9 Benign neoplasm of meninges, unspecified; G43.909 Migraine, unspecified, not intractable, without status migrainosus; Z20.822 Contact with and (suspected) exposure to COVID-19
CPT/HCPCS: 87635; 90870; J0330; J1885; J2405

== ENCOUNTER 2022-06-27 06:03 | Day surgery (SDC) | payer MEDICARE, SELFPAY ==
[2022-06-27] VITALS (9 sets, daily range): BP systolic 109–136; BP diastolic 68–87; PULSE 51–70; RESP 12–19; TEMP 36.3–36.8; O2SAT 95–100; BMI 19.6
[2022-06-27 06:42] LABS: COVID-19 Test Negative (Negative); IDNOW Serial# BCCEAD1C
--- NOTE | 2022-06-27 07:05 | P.CONAN1_ITS ---
[facility] Past Medical History Medical History Arachnoid cyst Depression History of electroconvulsive therapy Memory loss Meningioma Routine medical exam Suicidal ideation Surgical History Surgical History H/O eye surgery Social History Social History Household Members: Other Household Members Other:: house mates Housing: Apartment Alcohol intake: unknown Patient Tobacco Use Status: Never used Tobacco Advance Directives: No Advance Directives Information Provided: Yes service: No Sexual orientation: Don't Know Meds Allergies Allergy/AdvReac Type Severity Reaction Status Date / Time No Known Allergies Allergy Mild NKA Unverified 02/04/22 12:27 Physical Exam Vital Signs: Vital Signs: Last Vital Signs Temp 97.8 F 06/27/22 06:33 Pulse 51 06/27/22 06:33 Resp 16 06/27/22 06:33 BP 126/74 06/27/22 06:33 Pulse Ox 95 06/27/22 06:33 O2 Del Method 06/27/22 06:33 BMI result Body Mass Index 19.6 Results Labs Labs: All other labs normal. Assessment and Plan Time Spent With Patient Time: Total time managing care of this patient today ____ minutes.
--- NOTE | 2022-06-27 07:18 | P.CONAN_ITS ---
[facility] Active Problems Active Problems: All Active Problems (Updated 05/07/22 @ 00:02 by Froilan Andrés) Major depressive disorder, recurrent severe without psychotic features (Acute) Migraine (Acute) Arachnoid cyst (Acute) Meningioma (Acute) Past Medical History Medical History Arachnoid cyst Depression History of electroconvulsive therapy Memory loss Meningioma Routine medical exam Suicidal ideation Family History Family history of problems with anesthesia: No Surgical History Surgical History H/O eye surgery History of Problems with Anesthesia: No Social History Social History Household Members: Other Household Members Other:: house mates Housing: Apartment Alcohol intake: unknown Patient Tobacco Use Status: Never used Tobacco Advance Directives: No Advance Directives Information Provided: Yes service: No Sexual orientation: Don't Know Meds Allergies Allergy/AdvReac Type Severity Reaction Status Date / Time No Known Allergies Allergy Mild NKA Unverified 02/04/22 12:27 Exam Exam Date and Time: June 27, 2022 0718 Height,Weight and Vital Signs: Height 6 ft Weight 65.771 kg Last Vital Signs Temp 97.8 F 06/27/22 06:33 Pulse 51 06/27/22 06:33 Resp 16 06/27/22 06:33 BP 126/74 06/27/22 06:33 Pulse Ox 95 06/27/22 06:33 O2 Del Method 06/27/22 06:33 Pertinent Lab Results Pertinent Lab Results: Laboratory Tests 06/27/22 06:15 COVID-19 ([facility]) Negative COVID-19 Clin Com See Note Airway Mallampati Class: III TM Dist: >3cm Neck ROM: Full Loose/Missing/Broken Teeth: No Heart: RRR Lungs: CTA Assessment and Plan Final Anesthetic Review Family History of Problems with Anesthesia: No History of Problems with Anesthesia: No NPO: Yes ASA Class: II Final Preanesthetic Review: Meds/Allgs Chart Reviewed, Consent Obtained/Reviewed and Anes Risks/Benef Reviewed Patient Risk: Low Procedure Risk: Intermediate Anesthetic Plan Anesthetic Plan: GA Disposition: Standard PACU
--- NOTE | 2022-06-27 07:27 | MHC.SHP ---
Pre-Procedural Eval Section A Date of Service: 06/27/22 Changes since office visit: Yes New Medical Problems and Yes Patient answered all questions; No Cold of Flu in the past 2 weeks and No Changes in Medication The History & Physical has been completed within 30 days and I have reviewed it.: No Section B Chief Complaint: Major depressive disorder, recurrent, Details of Present Illness: recurrent depression Relevant Social History: None Present Medications: see Short Stay Collaborative assessment Allergies: Allergies Allergy/AdvReac Type Severity Reaction Status Date / Time No Known Allergies Allergy Mild NKA Unverified 02/04/22 12:27 Review of Systems Sugical H&P ROS: Negative: Cardiovascular and Respiratory and Yes, Specify: Gastrointestinal Exam Surgical H&P Exam: Normal: Heart and Normal: Lungs Plan Diagnosis/Plan: Unchanged I have reviewed the history and physical and performed a pertinent physical examination on my patient. No changes have occurred unless specified. Time Spent With Patient Time: Total time managing care of this patient today ____ minutes.
--- NOTE | 2022-06-27 07:29 | HO.ECTPROC ---
ECT Procedure Note Diagnosis/Treatment Date of Service: 06/27/22 Diagnosis: Major Depressive Disorder Previous ECT Date: 06/24/22 Current Treatment Number: 8 Treatment: Other (continuation) Interval Clinical Notes: pt feeling better had some relapse sx Time: Total time managing care of this patient today ____ minutes. ECT Settings Device: THYMATRON DGx Electrode Placement: Bifrontal Program/Pulse Width: 0.25 Energy Percent: 100 Seizure Duration By EEG (in seconds): 64 Medications Administration General Anesthetic: Etomidate (16) Muscle Relaxant: Succinylcholine (120) Ancillary Medications Analgesics: Torodol - Pre ECT Anti-emetics: Zofran - Pre ECT Miscillaneous Medications: Propofol Airway Management Airway Management: Bag Mask Ventilation Treatment Recommendations No Changes Recommended: No change Notes: f/u tx 07/01 mood improved Pt Tolerated Procedure w/o Issue: Yes
[2022-06-27] MEDS: LORazepam 2 MG/ML VIAL 1 MG IVPUSH (07:58)
== END 2022-06-27 09:35 | disposition home or self-care (01) ==
PROVIDERS: Visit Provider Psychiatry & Neurology Psychiatry
PROC: (CPT 90870; principal; 2022-06-27 16:00)
DX: F33.2 Major depressive disorder, recurrent severe without psychotic features (principal); F41.1 Generalized anxiety disorder; K21.9 Gastro-esophageal reflux disease without esophagitis; R10.13 Epigastric pain; R63.4 Abnormal weight loss; Z68.20 Body mass index [BMI] 20.0-20.9, adult; Z79.899 Other long term (current) drug therapy
CPT/HCPCS: 87635; 90870; J0330; J1885; J2060; J2405

== ENCOUNTER 2022-07-01 06:03 | Day surgery (SDC) | payer MEDICARE, SELFPAY ==
[2022-07-01 06:38] LABS: COVID-19 Test Negative (Negative); IDNOW Serial# 9DB6401D
[2022-07-01 06:39] VITALS: BP 136/85; PULSE 58; RESP 18; TEMP 37; O2SAT 98
--- NOTE | 2022-07-01 06:49 | P.CONAN_ITS ---
[facility] Active Problems Active Problems: All Active Problems (Updated 05/07/22 @ 00:02 by Froilan Dudionicio) Major depressive disorder, recurrent severe without psychotic features (Acute) Migraine (Acute) Arachnoid cyst (Acute) Meningioma (Acute) Past Medical History Medical History Arachnoid cyst Depression History of electroconvulsive therapy Memory loss Meningioma Routine medical exam Suicidal ideation Family History Family history of problems with anesthesia: No Surgical History Surgical History H/O eye surgery History of Problems with Anesthesia: No Social History Social History Household Members: Other Household Members Other:: house mates Housing: Apartment Alcohol intake: unknown Patient Tobacco Use Status: Never used Tobacco Use of substances other than those prescribed or required for medical reasons: No Are you DNR?: No Advance Directives: No Advance Directives Information Provided: Yes service: No Sexual orientation: Don't Know Meds Allergies Allergy/AdvReac Type Severity Reaction Status Date / Time No Known Allergies Allergy Mild NKA Verified 07/01/22 06:38 Active Medications: Current Medications Lactated Ringer's (Lr) 1,000 mls @ 50 mls/hr IVCONT .Q20H [facility] Home Medications Medication Instructions Recorded Confirmed Last Taken Type Prilosec OTC 07/01/22 07/01/22 History Exam Exam Date and Time: July 01, 2022 0649 Height,Weight and Vital Signs: Height 6 ft Weight 67.132 kg Last Vital Signs Temp 98.6 F 07/01/22 06:39 Pulse 58 07/01/22 06:39 Resp 18 07/01/22 06:39 BP 136/85 07/01/22 06:39 Pulse Ox 98 07/01/22 06:39 O2 Del Method Room Air 07/01/22 06:39 Pertinent Lab Results Pertinent Lab Results: Laboratory Tests 07/01/22 06:11 COVID-19 ([facility]) Negative COVID-19 Clin Com See Note Airway Mallampati Class: II TM Dist: >3cm Neck ROM: Full Heart: rrr Lungs: cta Assessment and Plan Assessment Anesthesia Assessment: Anesthesia Plan Discussed and Chart Reviewed Final Anesthetic Review Family History of Problems with Anesthesia: No History of Problems with Anesthesia: No NPO: Yes ASA Class: III Final Preanesthetic Review: No Changes in Pt Med Stat, Meds/Allgs Chart Reviewed and Consent Obtained/Reviewed Patient Risk: Intermediate Procedure Risk: Intermediate Anesthetic Plan Anesthetic Plan: GA Disposition: Standard PACU
[2022-07-01] MEDS: Lactated Ringers 1,000 ML 50 ML IVCONT (06:59)
--- NOTE | 2022-07-01 07:42 | MHC.SHP ---
Pre-Procedural Eval Section A Date of Service: 07/01/22 The patient is an INPATIENT: No Changes since office visit: Yes Patient answered all questions; No Cold of Flu in the past 2 weeks, No New Medical Problems and No Changes in Medication The History & Physical has been completed within 30 days and I have reviewed it.: No Section B Chief Complaint: Major depressive disorder, recurrent, severe with Details of Present Illness: recurrent depression Relevant Social History: None Present Medications: see Short Stay Collaborative assessment Allergies: Allergies Allergy/AdvReac Type Severity Reaction Status Date / Time No Known Allergies Allergy Mild NKA Verified 07/01/22 06:38 Review of Systems Sugical H&P ROS: Negative: Cardiovascular, Respiratory and Gastrointestinal and Yes, Specify: Musculoskeletal (cold sensitivity ) Exam Surgical H&P Exam: Normal: Heart and Normal: Lungs Plan Diagnosis/Plan: Unchanged I have reviewed the history and physical and performed a pertinent physical examination on my patient. No changes have occurred unless specified. Time Spent With Patient Time: Total time managing care of this patient today ____ minutes.
[2022-07-01 07:57] VITALS: BP 189/106; PULSE 68; RESP 16; TEMP 36.2; O2SAT 100
[2022-07-01 08:02] VITALS: BP 172/75; PULSE 66; RESP 16; O2SAT 100
[2022-07-01 08:07] VITALS: BP 117/79; PULSE 69; RESP 16; O2SAT 100
[2022-07-01 08:12] VITALS: BP 118/84; PULSE 67; RESP 16; O2SAT 96
[2022-07-01 08:27] VITALS: BP 135/79; PULSE 63; RESP 16; TEMP 36.3; O2SAT 98
--- NOTE | 2022-07-08 07:23 | HO.ECTPROC ---
ECT Procedure Note Diagnosis/Treatment Date of Service: 07/01/22 Time: Total time managing care of this patient today ____ minutes. ECT Settings Device: THYMATRON DGx
--- NOTE | 2022-07-08 15:49 | HO.ECTPROC ---
ECT Procedure Note Diagnosis/Treatment Date of Service: 07/01/22 Diagnosis: Major Depressive Disorder Current Treatment Number: 9 Treatment: Series Interval Clinical Notes: Patient here for continuation treatment had some relapse symptoms with depression and anxiety Time: Total time managing care of this patient today ____ minutes. ECT Settings Device: THYMATRON DGx Electrode Placement: Bifrontal Program/Pulse Width: 0.25 Energy Percent: 100 Seizure Duration By EEG (in seconds): 32 Medications Administration General Anesthetic: Etomidate (16) Muscle Relaxant: Succinylcholine (120) Ancillary Medications Anti-emetics: Zofran - Pre ECT Miscillaneous Medications: Propofol (30) Airway Management Airway Management: Bag Mask Ventilation Treatment Recommendations No Changes Recommended: No change Notes: pt has post op transient confusion anxiety f/u tx in 1 week Pt Tolerated Procedure w/o Issue: Yes
== END 2022-07-01 09:18 | disposition home or self-care (01) ==
PROVIDERS: Visit Provider Psychiatry & Neurology Psychiatry
PROC: (CPT 90870; principal; 2022-07-01 15:30)
DX: F33.2 Major depressive disorder, recurrent severe without psychotic features (principal); F41.1 Generalized anxiety disorder; R10.13 Epigastric pain; R63.4 Abnormal weight loss; Z68.20 Body mass index [BMI] 20.0-20.9, adult; K21.9 Gastro-esophageal reflux disease without esophagitis; Z79.899 Other long term (current) drug therapy; Z20.822 Contact with and (suspected) exposure to COVID-19
CPT/HCPCS: 87635; 90870; J0330; J1885; J2405

== ENCOUNTER 2022-07-08 06:03 | Day surgery (SDC) | payer MEDICARE, SELFPAY ==
[2022-07-08] VITALS (8 sets, daily range): BP systolic 108–140; BP diastolic 63–87; PULSE 59–78; RESP 12–16; TEMP 36.6–37.6; O2SAT 97–100; BMI 19.6
--- NOTE | 2022-07-08 06:48 | HO.ANESPROP2 ---
[facility] Active Problems Active Problems: All Active Problems (Updated 05/07/22 @ 00:02 by Froilan Dudionicio) Major depressive disorder, recurrent severe without psychotic features (Acute) Migraine (Acute) Arachnoid cyst (Acute) Meningioma (Acute) Past Medical History Medical History Arachnoid cyst Depression History of electroconvulsive therapy Memory loss Meningioma Routine medical exam Suicidal ideation Family History Family history of problems with anesthesia: No Surgical History Surgical History H/O eye surgery History of Problems with Anesthesia: No Social History Social History Household Members: Other Household Members Other:: house mates Housing: Apartment Alcohol intake: unknown Patient Tobacco Use Status: Never used Tobacco Use of substances other than those prescribed or required for medical reasons: No Are you DNR?: No Advance Directives: No Advance Directives Information Provided: Yes service: No Sexual orientation: Don't Know Meds Allergies Allergy/AdvReac Type Severity Reaction Status Date / Time No Known Allergies Allergy Mild NKA Verified 07/08/22 06:42 Home Medications Medication Instructions Recorded Confirmed Last Taken Type omeprazole 20 mg capsule,delayed 20 mg PO BID 07/08/22 07/08/22 07/08/22 History release Exam Exam Date and Time: July 08, 2022 0648 Height,Weight and Vital Signs: Height 6 ft Weight 65.771 kg Last Vital Signs Temp 98.1 F 07/08/22 06:42 Pulse 78 07/08/22 06:42 Resp 16 07/08/22 06:42 BP 137/87 07/08/22 06:42 Pulse Ox 98 07/08/22 06:42 O2 Del Method Room Air 07/08/22 06:42 Airway Mallampati Class: II TM Dist: >3cm Neck ROM: Full Heart: rrr Lungs: cta Assessment and Plan Assessment Anesthesia Assessment: Anesthesia Plan Discussed and Chart Reviewed Final Anesthetic Review Family History of Problems with Anesthesia: No History of Problems with Anesthesia: No NPO: Yes ASA Class: III Final Preanesthetic Review: No Changes in Pt Med Stat, Meds/Allgs Chart Reviewed and Consent Obtained/Reviewed Patient Risk: Intermediate Procedure Risk: Intermediate Anesthetic Plan Anesthetic Plan: GA Disposition: Standard PACU
[2022-07-08 06:49] LABS: COVID-19 Test Negative (Negative); IDNOW Serial# 08D9AD1C
[2022-07-08] MEDS: Lactated Ringers 1,000 ML 50 ML IVCONT (06:51)
--- NOTE | 2022-07-08 07:21 | MHC.SHP ---
Pre-Procedural Eval Section A Date of Service: 07/08/22 The patient is an INPATIENT: No Changes since office visit: Yes Patient answered all questions; No Cold of Flu in the past 2 weeks, No New Medical Problems and No Changes in Medication The History & Physical has been completed within 30 days and I have reviewed it.: Yes Section B Chief Complaint: Major depressive disorder, recurrent, severe with Allergies: Allergies Allergy/AdvReac Type Severity Reaction Status Date / Time No Known Allergies Allergy Mild NKA Verified 07/08/22 06:42 Plan I have reviewed the history and physical and performed a pertinent physical examination on my patient. No changes have occurred unless specified. Time Spent With Patient Time: Total time managing care of this patient today ____ minutes.
--- NOTE | 2022-07-08 07:25 | HO.ECTPROC ---
ECT Procedure Note Diagnosis/Treatment Date of Service: 07/08/22 Diagnosis: Major Depressive Disorder Previous ECT Date: 07/01/22 Current Treatment Number: 9 Treatment: Series Interval Clinical Notes: pt with inc anxiety depressive sx improved Time: Total time managing care of this patient today ____ minutes. ECT Settings Device: THYMATRON DGx Electrode Placement: Bifrontal Program/Pulse Width: 0.25 Energy Percent: 100 Seizure Duration By EEG (in seconds): 72 Medications Administration General Anesthetic: Etomidate (16) Muscle Relaxant: Succinylcholine (120) Ancillary Medications Analgesics: Torodol - Pre ECT Anti-emetics: Zofran - Pre ECT Miscillaneous Medications: Propofol (30) Airway Management Airway Management: Bag Mask Ventilation Treatment Recommendations Electrode Placement: Bifrontal Energy Percent: 70 Notes: got lorazepam 1 mg iv post tx has post op anxiety encourage pt to see psych provider f/u tx 2 weeks no cognitive complaints
[2022-07-08] MEDS: LORazepam 2 MG/ML VIAL 1 MG IVPUSH (07:55)
== END 2022-07-08 09:26 | disposition home or self-care (01) ==
PROVIDERS: Visit Provider Psychiatry & Neurology Psychiatry
PROC: (CPT 90870; principal; 2022-07-08 16:00)
DX: F33.2 Major depressive disorder, recurrent severe without psychotic features (principal); F41.1 Generalized anxiety disorder; R10.13 Epigastric pain; K21.9 Gastro-esophageal reflux disease without esophagitis; R63.4 Abnormal weight loss; Z68.20 Body mass index [BMI] 20.0-20.9, adult; Z79.899 Other long term (current) drug therapy; Z20.822 Contact with and (suspected) exposure to COVID-19
CPT/HCPCS: 87635; 90870; J0330; J1885; J2060; J2405

== ENCOUNTER 2022-07-22 06:06 | Day surgery (SDC) | payer MEDICARE, SELFPAY ==
[2022-07-22] VITALS (7 sets, daily range): BP systolic 111–139; BP diastolic 71–84; PULSE 65–72; RESP 12–20; TEMP 36.2–37.1; O2SAT 97–100
[2022-07-22 06:44] LABS: COVID-19 Test Negative (Negative); IDNOW Serial# 9DB6401D
--- NOTE | 2022-07-22 06:50 | HO.ANESPROP2 ---
[facility] Active Problems Active Problems: All Active Problems (Updated 05/07/22 @ 00:02 by Froilan Dudionicio) Major depressive disorder, recurrent severe without psychotic features (Acute) Migraine (Acute) Arachnoid cyst (Acute) Meningioma (Acute) Past Medical History Medical History Arachnoid cyst Depression History of electroconvulsive therapy Memory loss Meningioma Routine medical exam Suicidal ideation Family History Family history of problems with anesthesia: No Surgical History Surgical History H/O eye surgery History of Problems with Anesthesia: No Social History Social History Household Members: Other Household Members Other:: house mates Housing: Apartment Alcohol intake: unknown Patient Tobacco Use Status: Never used Tobacco Advance Directives: No Advance Directives Information Provided: Yes service: No Sexual orientation: Don't Know Meds Allergies Allergy/AdvReac Type Severity Reaction Status Date / Time No Known Allergies Allergy Mild NKA Verified 07/08/22 06:42 Home Medications Medication Instructions Recorded Confirmed Last Taken Type omeprazole 20 mg capsule,delayed 20 mg PO BID 07/08/22 07/08/22 07/08/22 History release Exam Exam Date and Time: July 22, 2022 0650 Height,Weight and Vital Signs: Height 6 ft Weight 67.132 kg Last Vital Signs Temp 97.1 F 07/22/22 06:35 Pulse 72 07/22/22 06:35 Resp 20 07/22/22 06:35 BP 134/84 07/22/22 06:35 Pulse Ox 99 07/22/22 06:35 O2 Del Method Room Air 07/22/22 06:35 Pertinent Lab Results Pertinent Lab Results: Laboratory Tests 07/22/22 06:17 COVID-19 ([facility]) Negative COVID-19 Clin Com See Note Airway Mallampati Class: II TM Dist: >3cm Neck ROM: Full Heart: rrr Lungs: cya Assessment and Plan Assessment Anesthesia Assessment: Anesthesia Plan Discussed and Chart Reviewed Final Anesthetic Review Family History of Problems with Anesthesia: No History of Problems with Anesthesia: No NPO: Yes ASA Class: III Final Preanesthetic Review: No Changes in Pt Med Stat, Meds/Allgs Chart Reviewed and Consent Obtained/Reviewed Patient Risk: Intermediate Procedure Risk: Intermediate Anesthetic Plan Anesthetic Plan: GA Disposition: Standard PACU
--- NOTE | 2022-07-22 07:08 | MHC.SHP ---
Pre-Procedural Eval Section A Date of Service: 07/22/22 The patient is an INPATIENT: No Changes since office visit: Yes Patient answered all questions; No Cold of Flu in the past 2 weeks, No New Medical Problems and No Changes in Medication The History & Physical has been completed within 30 days and I have reviewed it.: No Section B Chief Complaint: Major depressive disorder, recurrent, severe with Details of Present Illness: recurrent depression Relevant Social History: None Present Medications: see Short Stay Collaborative assessment Allergies: Allergies Allergy/AdvReac Type Severity Reaction Status Date / Time No Known Allergies Allergy Mild NKA Verified 07/08/22 06:42 Review of Systems Sugical H&P ROS: Negative: Cardiovascular, Respiratory and Gastrointestinal and Yes, Specify: Psychiatric (anxiety dysphoria) and Musculoskeletal (cold sensitivity ) Exam Surgical H&P Exam: Normal: Heart and Normal: Lungs Plan Diagnosis/Plan: Unchanged I have reviewed the history and physical and performed a pertinent physical examination on my patient. No changes have occurred unless specified. Time Spent With Patient Time: Total time managing care of this patient today ____ minutes.
--- NOTE | 2022-07-22 07:41 | HO.ECTPROC ---
ECT Procedure Note Diagnosis/Treatment Date of Service: 07/01/22 Diagnosis: Major Depressive Disorder Previous ECT Date: 07/01/22 Current Treatment Number: 10 Treatment: Maintenance Interval Clinical Notes: The patient has been started on amitriptyline 25 mg at bedtime anxiety symptoms. Patient feelings somewhat better Time: Total time managing care of this patient today ____ minutes. ECT Settings Device: THYMATRON DGx Electrode Placement: Bifrontal Program/Pulse Width: 0.25 Energy Percent: 100 Seizure Duration By EEG (in seconds): 56 Medications Administration General Anesthetic: Etomidate (16) Muscle Relaxant: Succinylcholine (120) Ancillary Medications Analgesics: Torodol - Pre ECT (15) Anti-emetics: Zofran - Pre ECT Miscillaneous Medications: Propofol (30 mg) Airway Management Airway Management: Bag Mask Ventilation Treatment Recommendations No Changes Recommended: No change Notes: Patient had for some postop anxiety has had lorazepam IV with good effect Pt Tolerated Procedure w/o Issue: Yes
[2022-07-22] MEDS: LORazepam 2 MG/ML VIAL 1 MG IVPUSH (07:51)
--- NOTE | 2022-08-11 11:09 | HO.ECTPROC ---
ECT Procedure Note Diagnosis/Treatment Date of Service: 07/01/22 Diagnosis: Major Depressive Disorder Treatment: Maintenance Interval Clinical Notes: pt with anxiety some dysphoria Time: Total time managing care of this patient today ____ minutes. ECT Settings Device: THYMATRON DGx Electrode Placement: Bifrontal Program/Pulse Width: 0.25 Energy Percent: 100 Seizure Duration By EEG (in seconds): 32 Medications Administration General Anesthetic: Etomidate (16) Muscle Relaxant: Succinylcholine (120) Ancillary Medications Anti-emetics: Zofran - Pre ECT Miscillaneous Medications: Propofol (30) Airway Management Airway Management: Bag Mask Ventilation Treatment Recommendations No Changes Recommended: No change Notes: some anxiety confusion post tx f/u 1 week as tolerated for 07/01/22 Pt Tolerated Procedure w/o Issue: Yes
== END 2022-07-22 09:45 | disposition home or self-care (01) ==
PROVIDERS: Visit Provider Psychiatry & Neurology Psychiatry
PROC: (CPT 90870; principal; 2022-07-22 08:00)
DX: F33.2 Major depressive disorder, recurrent severe without psychotic features (principal); G93.0 Cerebral cysts; G43.909 Migraine, unspecified, not intractable, without status migrainosus; D32.9 Benign neoplasm of meninges, unspecified; I69.911 Memory deficit following unspecified cerebrovascular disease; R45.851 Suicidal ideations; Z79.899 Other long term (current) drug therapy; Z20.822 Contact with and (suspected) exposure to COVID-19
CPT/HCPCS: 87635; 90870; J0330; J1885; J2060; J2405

== ENCOUNTER 2022-07-29 08:04 | Day surgery (SDC) | payer MEDICARE, SELFPAY ==
[2022-07-29 08:23] VITALS: BP 138/78; PULSE 67; RESP 18; TEMP 36.6; O2SAT 100; BMI 19.6
--- NOTE | 2022-07-29 08:29 | HO.ANESPROP2 ---
[facility] Active Problems Active Problems: All Active Problems (Updated 05/07/22 @ 00:02 by Froilan Bowen) Major depressive disorder, recurrent severe without psychotic features (Acute) Migraine (Acute) Arachnoid cyst (Acute) Meningioma (Acute) Past Medical History Medical History Arachnoid cyst Depression History of electroconvulsive therapy Memory loss Meningioma Routine medical exam Suicidal ideation Family History Family history of problems with anesthesia: No Surgical History Surgical History H/O eye surgery History of Problems with Anesthesia: No Social History Social History Household Members: Other Household Members Other:: house mates Housing: Apartment Alcohol intake: unknown Patient Tobacco Use Status: Never used Tobacco Advance Directives: No Advance Directives Information Provided: Yes service: No Sexual orientation: Don't Know Meds Allergies Allergy/AdvReac Type Severity Reaction Status Date / Time No Known Allergies Allergy Mild NKA Verified 07/08/22 06:42 Active Medications: Current Medications Lactated Ringer's (Lr) 1,000 mls @ 50 mls/hr IVCONT .Q20H [facility] Home Medications Medication Instructions Recorded Confirmed Last Taken Type omeprazole 20 mg capsule,delayed 20 mg PO BID 07/08/22 07/08/22 07/08/22 History release Exam Exam Date and Time: July 29, 2022 0829 Height,Weight and Vital Signs: Height 6 ft Weight 65.771 kg Last Vital Signs Temp 98 F 07/29/22 08:23 Pulse 67 07/29/22 08:23 Resp 18 07/29/22 08:23 BP 138/78 07/29/22 08:23 Pulse Ox 100 07/29/22 08:23 O2 Del Method Room Air 07/29/22 08:23 Airway Mallampati Class: II TM Dist: >3cm Neck ROM: Full Heart: rrr Lungs: cta Assessment and Plan Assessment Anesthesia Assessment: Anesthesia Plan Discussed and Chart Reviewed Final Anesthetic Review Family History of Problems with Anesthesia: No History of Problems with Anesthesia: No NPO: Yes ASA Class: III Final Preanesthetic Review: No Changes in Pt Med Stat, Meds/Allgs Chart Reviewed and Consent Obtained/Reviewed Patient Risk: Intermediate Procedure Risk: Intermediate Anesthetic Plan Anesthetic Plan: GA Disposition: Standard PACU
--- NOTE | 2022-07-29 08:32 | P.CONAN_ITS ---
[facility] Active Problems Active Problems: All Active Problems Major depressive disorder, recurrent severe without psychotic features (Acute) Migraine (Acute) Arachnoid cyst (Acute) Meningioma (Acute) Past Medical History Medical History Arachnoid cyst Depression History of electroconvulsive therapy Memory loss Meningioma Routine medical exam Suicidal ideation Family History Family history of problems with anesthesia: No Surgical History Surgical History H/O eye surgery History of Problems with Anesthesia: No Social History Social History Household Members: Other Household Members Other:: house mates Housing: Apartment Alcohol intake: unknown Patient Tobacco Use Status: Never used Tobacco Advance Directives: No Advance Directives Information Provided: Yes service: No Sexual orientation: Don't Know Meds Allergies Allergy/AdvReac Type Severity Reaction Status Date / Time No Known Allergies Allergy Mild NKA Verified 07/08/22 06:42 Active Medications: Current Medications Lactated Ringer's (Lr) 1,000 mls @ 50 mls/hr IVCONT .Q20H [facility] Home Medications Medication Instructions Recorded Confirmed Last Taken Type omeprazole 20 mg capsule,delayed 20 mg PO BID 07/08/22 07/08/22 07/08/22 History release Exam Exam Date and Time: July 29, 2022 0832 Height,Weight and Vital Signs: Height 6 ft Weight 65.771 kg Last Vital Signs Temp 98 F 07/29/22 08:23 Pulse 67 07/29/22 08:23 Resp 18 07/29/22 08:23 BP 138/78 07/29/22 08:23 Pulse Ox 100 07/29/22 08:23 O2 Del Method Room Air 07/29/22 08:23 Airway Mallampati Class: II TM Dist: >3cm Neck ROM: Full Heart: rrr Lungs: cta Assessment and Plan Assessment Anesthesia Assessment: Anesthesia Plan Discussed and Chart Reviewed Final Anesthetic Review Family History of Problems with Anesthesia: No History of Problems with Anesthesia: No NPO: Yes ASA Class: III Final Preanesthetic Review: No Changes in Pt Med Stat, Meds/Allgs Chart Reviewed and Consent Obtained/Reviewed Patient Risk: Intermediate Procedure Risk: Intermediate Anesthetic Plan Anesthetic Plan: GA Disposition: Standard PACU
[2022-07-29 08:42] LABS: COVID-19 Test Negative (Negative); IDNOW Serial# BCCEAD1C
--- NOTE | 2022-07-29 09:45 | MHC.SHP ---
Pre-Procedural Eval Section A Date of Service: 07/29/22 The patient is an INPATIENT: No Changes since office visit: Yes Changes in Medication and Yes Patient answered all questions; No Cold of Flu in the past 2 weeks and No New Medical Problems The History & Physical has been completed within 30 days and I have reviewed it.: No Section B Chief Complaint: Major depressive disorder, recurrent, severe Details of Present Illness: recurrent depression anxiety much improved Relevant Social History: None Present Medications: see Short Stay Collaborative assessment Medical History: Significant History (small meningioma) Allergies: Allergies Allergy/AdvReac Type Severity Reaction Status Date / Time No Known Allergies Allergy Mild NKA Verified 07/08/22 06:42 Review of Systems Sugical H&P ROS: Negative: Cardiovascular, Respiratory and Gastrointestinal and Yes, Specify: Psychiatric (some occ limited panic) and Musculoskeletal (cold sensitivity ) Exam Surgical H&P Exam: Normal: Heart and Normal: Lungs (clear) Plan Diagnosis/Plan: Unchanged I have reviewed the history and physical and performed a pertinent physical examination on my patient. No changes have occurred unless specified. Time Spent With Patient Time: Total time managing care of this patient today _35___ minutes.
--- NOTE | 2022-07-29 09:52 | HO.ECTPROC ---
ECT Procedure Note Diagnosis/Treatment Date of Service: 07/29/22 Diagnosis: Major Depressive Disorder Previous ECT Date: 07/22/22 Current Treatment Number: 10 Treatment: Maintenance Interval Clinical Notes: pt feeling better generally on amitriptyline no c/o ect s/e Time: Total time managing care of this patient today ____ minutes. ECT Settings Device: THYMATRON DGx Electrode Placement: Bifrontal Program/Pulse Width: 0.25 Energy Percent: 100 Seizure Duration By EEG (in seconds): 32 Medications Administration General Anesthetic: Etomidate (16) Muscle Relaxant: Succinylcholine (120) Ancillary Medications Analgesics: Torodol - Pre ECT (15) Anti-emetics: Zofran - Pre ECT Miscillaneous Medications: Propofol (30 mg) Airway Management Airway Management: Bag Mask Ventilation Treatment Recommendations No Changes Recommended: No change Notes: Patient had for some postop anxiety po lorazepam with good effect f/u tx 1 week Pt Tolerated Procedure w/o Issue: Yes
[2022-07-29 10:01] VITALS: BP 162/86; PULSE 69; RESP 16; TEMP 37.1; O2SAT 98
[2022-07-29 10:06] VITALS: BP 137/35; PULSE 73; RESP 14; O2SAT 100
[2022-07-29 10:11] VITALS: BP 123/82; PULSE 73; RESP 15; O2SAT 100
[2022-07-29 10:16] VITALS: BP 118/88; PULSE 76; RESP 15; O2SAT 100
[2022-07-29] MEDS: LORazepam 1 MG TABLET PO (10:24)
[2022-07-29 10:31] VITALS: BP 142/87; PULSE 68; RESP 16; TEMP 37.1; O2SAT 100
== END 2022-07-29 11:25 | disposition home or self-care (01) ==
PROVIDERS: Visit Provider Psychiatry & Neurology Psychiatry
PROC: (CPT 90870; principal; 2022-07-29 10:30)
DX: F33.2 Major depressive disorder, recurrent severe without psychotic features (principal); F41.1 Generalized anxiety disorder; R63.5 Abnormal weight gain; D32.9 Benign neoplasm of meninges, unspecified; Z79.899 Other long term (current) drug therapy; Z20.822 Contact with and (suspected) exposure to COVID-19
CPT/HCPCS: 87635; 90870; J0330; J1885; J2405

== ENCOUNTER 2023-03-07 08:51 | Outpatient (AMB) | payer MEDICARE, SELFPAY ==
--- NOTE | 2023-03-07 09:06 | MHC.OFFVIS ---
Intake Vital Signs 03/07/23 09:10 BP 140/82 H Blood Pressure Location Rt brachial Position Sitting Intake Visit Reasons: Emgality f/u/Lvm Intake Note: Patient presents for Emgality follow up. Allergies No Known Allergies Allergy (Mild, Verified 03/07/23 09:09) NKA Medication List - Last Reconciled 03/07/23 by Paola Alcantara, [employer] clonazepam 1 tab PO BID PRN galcanezumab-gnlm (Emgality Pen) 120 mg subcut ONCE 30 days omeprazole 20 mg PO BID HPI HPI Comments History of Present Illness Details 72-yr-old male presents for f/u visit. Pt had head CT during hospitalization in Apr 2022- for management of mood. 04/29/22, CT/CT head/brain wo IV con IMPRESSION: * No acute intracranial pathology. * 1.4 cm partially calcified meningioma is observed in the parasagittal region superior to the right parietal lobe. * Findings consistent with arachnoid cyst located within the posterior fossa superior to the cerebellar vermis. Prior to starting Emgality a few years ago, pt reports he was having a migraine almost daily. He describes his migraine- pressure throbbing aching pain in band across frontal and temporal region a/w photophobia, phonophobia, nausea. Denies visual aura. Since he started Emgality, he has had a decrease in his migraine. Initially he was only having 1-2 migraine days per month, more recently he is having 6-7 migraine days per month (scattered throughout the month). He is currently using Aleve prn- can help usually within 20 min, but does need to lay down in a dark room, and feels like it helps but has a rebound component where the headache comes back the next day. Previous trials- Botox- ineffective, Amitriptyline- ineffective, Propranolol- ineffective. He does not recall previously trying a triptan. Denies CAD, HLD. PFSH Medical History Arachnoid cyst Depression History of electroconvulsive therapy Memory loss Meningioma Routine medical exam Suicidal ideation Surgical History H/O eye surgery Social History Household Members: Other Household Members Other:: house mates Housing: Apartment Alcohol intake: unknown Patient Tobacco Use Status: Never used Tobacco service: No Sexual orientation: Don't Know Review of Systems Const All systems reviewed & are unremarkable except as noted in HPI and below Physical Exam Vital Signs: Last Vital Signs BP 140/82 H 03/07/23 09:10 Const General: cooperative and no acute distress Orientation/consciousness: patient oriented x3 HEENT Head: Yes normocephalic Resp Effort & Inspection: normal respiratory effort and able to speak in complete sentences Neuro General: patient oriented x3, gait normal and CN's II-XI intact bilaterally Cognition (Neuro): normal cognition Motor exam (neuro): 5/5 motor strength present throughout Psych Appearance: grossly normal Mental Status: mental status grossly normal Speech and movement: Normal speech and movement present Affect: normal affect Attitude: cooperative Thought process: Normal thought process present Thought content: Normal thought content present Insight: Good insight present (Psych) Judgement: Good judgement present (Psych) Assessment & Plan Assessment & Plan (1) Migraine: Code(s): G43.909 - Migraine, unspecified, not intractable, without status migrainosus (2) Arachnoid cyst: Code(s): G93.0 - Cerebral cysts (3) Meningioma: Code(s): D32.9 - Benign neoplasm of meninges, unspecified Plan For migraine prevention- Continue Emgality 120mg sc q month- as pt is still having > 30 % reduction in monthly migraine days from baseline. [facility] pt assistance program paperwork completed Previous trials- Botox- ineffective, Amitriptyline- ineffective, Propranolol- ineffective. For acute migraine tx: May continue Aleve prn. Trial Sumatriptan 100mg tab, 1/2 - 1 tab (50-100mg) at onset of headache, may repeat in 2 hours. Max of 2 tabs (200mg) per 24 hours. May adjunct with OTC Naproxen 440mg q 12 hrs prn. f/u in 6 months or sooner prn Medications: New sumatriptan succinate (0.5 - 1 x 100 mg) 50 - 100 mg orally at onset of headache, may repeat in 2 hrs PRN; max 2 tabs per day or 4 tabs/week (may take with Aleve) 30 days 12 tabs 6RF migraine headache Coding Level of Care Code Est Pt Level 4 (73951) Diagnoses Migraine G43.909 Arachnoid cyst G93.0 Meningioma D32.9
[2023-03-07 09:10] VITALS: BP 140/82
== END 2023-03-07 10:01 | disposition home or self-care (01) ==
PROVIDERS: Visit Provider Nurse Practitioner Family
DX: G43.909 Migraine, unspecified, not intractable, without status migrainosus (principal); G93.0 Cerebral cysts; D32.9 Benign neoplasm of meninges, unspecified
CPT/HCPCS: 99214

== ENCOUNTER → 2023-03-07 08:51 | Outpatient (BNVA) | payer MEDICARE, SELFPAY | PROVIDERS: Visit Provider Nurse Practitioner Family | DX: G43.909 Migraine, unspecified, not intractable, without status migrainosus (principal); G93.0 Cerebral cysts; D32.9 Benign neoplasm of meninges, unspecified | CPT/HCPCS: 99212 ==

== ENCOUNTER 2023-12-20 12:23 | Outpatient (AMB) | payer MEDICARE, SELFPAY ==
--- NOTE | 2023-12-20 12:24 | A.OFFVIS_ITS ---
Vital Signs 12/20/23 12:25 Height 6 ft Weight 137 lb BMI 18.6 BP 120/70 Blood Pressure Location Rt brachial Position Sitting Respiration 16 Pulse 59 Pulse Source Pulse Oximeter Pulse Oximetry (%) 99 Oxygen Delivery Method Room Air Intake Visit Reasons: Worsening Headaches Intake Note: Pt presents to the office for follow up for worsening headaches s/p heart attack in September. 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 He had a TX 2 months ago and was admitted at [facility] and had stent placed. He started having constant headaches since then . He says it is different than migraines and he takes tylenol 500mg 1-4 tabs a day . It is low grade - but constant and worsens as the day progresses. He says these headaches are different form his migraines He is on aimovig now - and was helping before the TX He had 3-4 headaches a month prior to his TX. He reports mild dizziness and nausea. [facility] Medical History (Updated 12/20/23 @ 12:48 by Minda Laird MD) Cervicalgia Chronic migraine without aura, intractable, without status migrainosus Routine medical exam Suicidal ideation Arachnoid cyst Meningioma History of electroconvulsive therapy Memory loss Depression Surgical History History of heart artery stent H/O eye surgery Social History Household Members: Other Household Members Other:: house mates Housing: Apartment Alcohol intake: unknown Patient Tobacco Use Status: Never used Tobacco service: No Sexual orientation: Don't Know Physical Exam Vital Signs: Last Vital Signs Pulse 59 12/20/23 12:25 Resp 16 12/20/23 12:25 BP 120/70 09/11/24 12:25 Pulse Ox 99 12/20/23 12:25 Oxygen Delivery Method Room Air 12/20/23 12:25 BMI result Body Mass Index 18.6 Const General: cooperative and no acute distress Orientation/consciousness: patient oriented x3 HEENT Head: Yes normocephalic Resp Effort & Inspection: normal respiratory effort and able to speak in complete sentences Neuro Other: mild antecollis, severe tenderness tightness in ngozi splenius, levator scalene muscles General: patient oriented x3, gait normal and CN's II-XI intact bilaterally Cognition (Neuro): normal cognition Motor exam (neuro): 5/5 motor strength present throughout Assessment & Plan Assessment & Plan (1) Cervicalgia: Comment: Chronic daily headaches are likely cervicogenic Code(s): M54.2 - Cervicalgia Category: Medical (2) Chronic migraine without aura, intractable, without status migrainosus: Code(s): G43.719 - Chronic migraine without aura, intractable, without status migrainosus Category: Medical (3) Meningioma: Code(s): D32.9 - Benign neoplasm of meninges, unspecified Category: Medical (4) Arachnoid cyst: Code(s): G93.0 - Cerebral cysts Category: Medical (5) Migraine: Code(s): G43.909 - Migraine, unspecified, not intractable, without status migrainosus Category: Medical Plan C spine X ray I will trial him on baclofen 10mg qhs Continue AImovig 140mg sc q month- as pt is still having > 30 % reduction in monthly migraine days from baseline. Previous trials- Botox- ineffective, Amitriptyline- ineffective, Propranolol- ineffective NO TRIPTANS due to his recent NSTEMI. Orders: Orders PT Evaluation and Treatment Today M54.2 - Cervicalgia XR cervical spine 2V Today M54.2 - Cervicalgia Medications: New baclofen 10 mg PO BEDTIME 30 tabs 3RF Scribe Plan - Not visible on output: Reviewed possible medication side effects, including but not limited to drowsiness, dizziness. Coding Level of Care Code Est Pt Level 4 (86434) Diagnoses Cervicalgia M54.2 Chronic migraine without aura, intractable, without status migrainosus G43.719 Meningioma D32.9 Arachnoid cyst G93.0 Migraine G43.909
[2023-12-20 12:25] VITALS: BP 120/70; PULSE 59; RESP 16; O2SAT 99; BMI 18.6
== END 2023-12-20 12:56 | disposition home or self-care (01) ==
PROVIDERS: Visit Provider Psychiatry & Neurology Neurology
DX: M54.2 Cervicalgia (principal); G43.719 Chronic migraine without aura, intractable, without status migrainosus; D32.9 Benign neoplasm of meninges, unspecified; G93.0 Cerebral cysts; G43.909 Migraine, unspecified, not intractable, without status migrainosus
CPT/HCPCS: 99214

== ENCOUNTER → 2023-12-20 12:23 | Outpatient (BNVA) | payer MEDICARE, SELFPAY | PROVIDERS: Visit Provider Psychiatry & Neurology Neurology | DX: G43.909 Migraine, unspecified, not intractable, without status migrainosus (principal); M54.2 Cervicalgia; G43.719 Chronic migraine without aura, intractable, without status migrainosus; D32.9 Benign neoplasm of meninges, unspecified; G93.0 Cerebral cysts | CPT/HCPCS: 99212 ==

== ENCOUNTER 2024-03-18 11:08 | Inpatient (IN) | payer MEDICARE, SELFPAY ==
--- NOTE | 2024-03-18 | ECG_ITS ---
Test Reason : prolong qt Blood Pressure : / mmHG Vent. Rate : 051 BPM Atrial Rate : 051 BPM P-R Int : 170 ms QRS Dur : 076 ms QT Int : 414 ms P-R-T Axes : 078 035 046 degrees QTc Int : 381 ms Sinus bradycardia Otherwise normal ECG When compared with ECG of 27-APR-2022 13:43, No significant change was found Referred By: Ronald Davenport Electronically Signed By:GABBY RASHID MD
--- NOTE | ~2024-03-18 | CT_ITS ---
EXAMINATION: CT HEAD WITHOUT CONTRAST CLINICAL INFORMATION: Preoperative. History of meningioma. COMPARISON: CT head April 28, 2022 TECHNIQUE: Contiguous axial imaging was performed from the skull base to vertex without intravenous administration of contrast. Coronal and sagittal reformatted images are performed at the CT scanner. This CT examination was performed using dose optimization techniques as appropriate, variously including the following: *Automated exposure control *Adjustment of mA and/or kV according to patient size (this includes techniques or standardized protocols for targeted exams where dose is matched to indication/reason for exam; i.e. extremities or head) *Use of iterative reconstruction technique DLP: 746 mGy-cm. FINDINGS: Redemonstrated at the right vertex parasagittal region at the right parietal lobe there is an extra-axial meningioma with calcification measuring about 1.4 cm in maximum dimension. This is unchanged since CAT scan April 28, 2022. No mass effect associated with this lesion. No intraparenchymal lesion. Ventricles and sulci are proportional. Stable extra-axial fluid collection superior to the cerebellar vermis at the posterior fossa consistent with arachnoid cyst measuring about 3 cm x 2 cm unchanged since prior study 2022. There is no osseous abnormality. The mastoid air cells and visualized portions of the paranasal sinuses are well-aerated. CT/CT head/brain wo IV con IMPRESSION: 1. No acute intracranial pathology. 2. Stable right parasagittal meningioma at the right parietal lobe. 3. Stable arachnoid cyst superior to the cerebellar vermis. Electronically signed by: Xavier Carlos MD 03/19/2024 03:26 PM EST
[2024-03-18 11:10] VITALS: BP 125/78; PULSE 54; RESP 18; TEMP 36.4; O2SAT 98; BMI 21.0
--- NOTE | 2024-03-18 11:49 | ED.PSYCH ---
HPI - Psych General Chief Complaint: Psychiatric Symptoms Stated Complaint: Psych eval Time Seen by Provider: 03/18/24 11:46 Source: patient Mode of arrival: ambulatory Limitations: no limitations History of Present Illness ED Provider: Dr. Ronald Davenport HPI Narrative: 73-year-old male with a history of depression, migraine headaches, cervicalgia, meningioma, coronary artery disease with cardiac catheterization and stent 09/2023 at [facility], who presents emergency department for evaluation of increased depression. The patient states that he was under the care of a psychiatrist and has been taking his medications in his also had ketamine therapy with no improvement in his depression. Patient states that he knows that if he does not get help he will become suicidal but he was not suicidal at this time. He states that 3 years prior he did get ECT treatment under the care of Dr. Epperson. The patient wrote a letter to Dr. Epperson and Dr. Epperson requested that the patient come to the emergency department for evaluation. Patient denies fever, chills, chest pain, shortness of breath, nausea, vomiting, diarrhea, change in his bowel movements. He states he has been compliant with his medications. 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 Meehan at [facility]. 15:18 I did receive information from [facility] regarding the patient's cardiac catheterization and presentation dated 09/27/2023. The patient initially presented to the [facility] ER diagnosed with NSTEMI with upward trending high sensitive troponin I. Patient then had a cardiac catheterization and was found to have 100% lad occlusion which was stented. Patient had an echocardiogram at that time which revealed an EF of 65-70% with no obvious wall motion abnormalities. Related Data Home Medications ?Medication ?Instructions ?Recorded ?Confirmed aspirin 81 mg tablet,delayed 81 mg PO DAILY 12/18/23 03/18/24 release atorvastatin 80 mg tablet 80 mg PO DAILY 12/18/23 03/18/24 cholecalciferol (vitamin D3) 25 25 mcg PO DAILY 12/20/23 03/18/24 mcg (1,000 unit) capsule mecobalamin (vitamin B12) 1,000 1,000 mcg PO DAILY 12/20/23 03/18/24 mcg lozenges aripiprazole 5 mg tablet 5 mg PO DAILY 03/18/24 03/18/24 clonazepam 0.5 mg tablet 1 tab PO TID PRN anxiety 03/18/24 03/18/24 clonidine HCl 0.1 mg tablet 0.1 mg PO TID PRN Anxiety 03/18/24 03/18/24 lurasidone 40 mg tablet 40 mg PO DAILY 03/18/24 03/18/24 metoprolol tartrate 25 mg tablet 25 mg PO BID 03/18/24 03/18/24 mirtazapine 30 mg tablet 30 mg PO BEDTIME 03/18/24 03/18/24 ticagrelor 90 mg tablet (Brilinta) 90 mg PO BID 03/18/24 03/18/24 Allergies Allergy/AdvReac Type Severity Reaction Status Date / Time No Known Allergies Allergy Mild NKA Verified 03/18/24 11:14 Review of Systems Review of Systems: Yes all other systems are reviewed and are negative [facility] Past Medical History Medical History (Updated 03/18/24 @ 14:34 by Francisca Smith) Cervicalgia Chronic migraine without aura, intractable, without status migrainosus Routine medical exam Suicidal ideation Arachnoid cyst Meningioma History of electroconvulsive therapy Memory loss Depression Surgical History History of heart artery stent H/O eye surgery Social History Social History Household Members: Other Household Members Other:: house mates Housing: Apartment Alcohol intake: unknown Patient Tobacco Use Status: Never used Tobacco Smoked in Last 30 Days: No Use of substances other than those prescribed or required for medical reasons: No Advance Directives: No Advance Directives Information Provided: Yes Do you have a plan to hurt others: No Plan service: No Sexual orientation: Don't Know Physical Exam Vital Signs: Vital Signs: Last Vital Signs Temp 97.6 F 03/18/24 11:10 Pulse 54 03/18/24 11:10 Resp 16 03/18/24 11:59 BP 125/78 03/18/24 11:10 Pulse Ox 98 03/18/24 11:10 O2 Del Method Room Air 03/18/24 11:10 BMI result Body Mass Index 21.0 Vital signs were normal Exam: General: Awake, alert in no distress Head: Normocephalic, atraumatic EENT: PERRL, Lids normal, sclera normal, conjunctiva normal, nose normal , ears normal, throat without erythema or exudates Neck: Supple, no adenopathy Lung: breath sounds symmetric, no wheezing, rales or rhonchi Chest: symmetric movement, nontender Heart: regular rate and rhythm, normal S1, S2 no murmurs or rubs Abdomen: soft, non-tender, nondistended, normal bowel sounds Back: no vertebral tenderness, no CVAT Extremities: no deformities, moves all extremities symmetrically Neuro: Awake, alert, oriented, normal speech, cranial nerves intact, moves all extremities symmetrically Psych: Pleasant, cooperative Medical Decision Making Medical Decision Making [facility] Narrative: 73-year-old male with a history of depression, migraine headaches, cervicalgia, meningioma, coronary artery disease with cardiac catheterization and stent 09/2023 at [facility], who presents emergency department for evaluation of increased depression and evaluation for ECT treatment. Patient was advised to go to the emergency department by Dr. Epperson. Patient was review of systems were negative. Vital signs were normal. Physical examination was unremarkable. Differential diagnosis: ?Includes but is not limited to depression, suicidal ideation, anxiety, electrolyte abnormalities, anemia, Course: 15:22 My independent interpretation patient's laboratory evaluation as follows: CBC was normal. BUN was slightly elevated 19 with normal creatinine of 0.85. LFTs were normal. Urinalysis was negative. Urine tox screen was negative with ethanol below detectable limits. Patient's 12 EKG was unremarkable. The patient will be admitted to the psychiatric service for further treatment and for evaluation for ECT. Admission/Observation Consideration of admission/observation: Escalation of care including admission/observation considered Lab Data [facility] Lab Attestation statement: I reviewed the patient's lab results. 03/18/24 12:09 03/18/24 12:09 Labs: Lab Results 03/18/24 03/18/24 Range/Units 12: 13:51 WBC 6.8 (4.8-10.8) X10*3/uL RBC 4.63 (4.60-5.80) X10*6/uL Hgb 14.4 (14.0-18.0) g/dl Hct 44.0 (42.0-52.0) % MCV 95.0 (80.0-98.0) fL MCH 31.1 (27.0-33.0) pg MCHC 32.7 (31.0-36.0) g/dl RDW 13.1 (11.0-16.0) % Plt Count 185 (160-400) X10*3/uL MPV 9.4 (9.4-12.4) fL Immature Gran % (Auto) 0.3 (0.0-0.4) % Neut % (Auto) 78.5 H (45-73) % Lymph % (Auto) 11.9 L (20-40) % [place] % (Auto) 8.7 (2-11) % Eos % (Auto) 0.3 (0-4) % Baso % (Auto) 0.3 (0-2) % Lymph # (Auto) 0.8 L (1.2-4.9) X10*3/uL [place] # (Auto) 0.6 (0.1-1.2) X10*3/uL Eos # (Auto) 0.0 (0.0-0.4) X10*3/uL Baso # (Auto) 0.0 (0.0-0.2) X10*3/uL Abs Immat Gran (auto) 0.02 (0.00-0.03) X10*3/uL Absolute Neuts (auto) 5.4 (2.0-8.3) x10*3/uL Absolute Nucleated RBC 0.000 (0.0-0.012) X10*3/uL Nucleated RBC % (auto) 0.0 (0.0-0.2) /100WBC Sodium 140 (135-145) mmol/L Potassium 4.3 (3.3-5.1) mmol/L Chloride 107 (96-108) mmol/L Carbon Dioxide 28 (22-29) mmol/L Anion Gap 9 L (12-20) BUN 19 H (9-16) mg/dL Creatinine 0.84 (0.5-1.4) mg/dL Estim Creat Clear Calc 73.6 Estimated GFR > 60 Random Glucose 102 (60-115) mg/dL Calcium 9.2 (8.4-10.2) mg/dL Total Bilirubin 0.8 (0.0-1.0) mg/dL AST 27 (5-37) U/L ALT 38 (0-40) U/L Alkaline Phosphatase 75 (39-117) U/L Total Protein 7.0 (6.5-8.0) g/dL Albumin 4.4 (3.5-5.0) g/dL Urine Color Yellow Urine Appearance Clear Urine pH 5.5 (5.0-9.0) Ur Specific [place] 1.020 (1.005-1.025) Urine Protein Negative (Neg-Trace) mg/dL Urine Glucose (UA) Negative (Negative) mg/dL Urine Ketones Negative (Negative) mg/dL Urine Blood Negative (Negative) Urine Nitrite Negative (Negative) Ur Leukocyte Esterase Negative (Negative) Urine Opiates Screen Not Detected (Not Detect) Ur Buprenorphine Scrn Not Detected (Not Detect) ng/mL Ur Oxycodone Screen Not Detected (Not Detect) ng/mL Urine Methadone Screen Not Detected (Not Detect) ng/mL Urine Fentanyl Screen Not Detected (Not Detect) Ur Barbiturates Screen Not Detected (Not Detect) Ur Phencyclidine Scrn Not Detected (Not Detect) Ur Amphetamines Screen Not Detected (Not Detect) U Benzodiazepines Scrn Not Detected (Not Detect) Urine Cocaine Screen Not Detected (Not Detect) U Marijuana (THC) Screen Not Detected (Not Detect) Ethyl Alcohol < 10 mg/dL Independent Interpretation I performed an independent interpretation of an: EKG Interpretation: My independent interpretation patient's 12 EKG done at 13:01 hours is as follows: Sinus bradycardia with a rate of 51, no ST segment elevation, no ST segment depression, no PACs, no PVCs, no significant T-wave abnormalities Chronic Conditions Patient?s care impacted by: Other (Depression, coronary disease) Discharge Plan Discharge Clinical Impression: Depression Patient Disposition: Admitted As Inpatient Interventions: [place]-Suicide Risk Severity Scale Last Done: 03/18/24 11:59
[2024-03-18 11:59] VITALS: RESP 16
[2024-03-18 12:12] LABS: MANUAL DIFF FLAG NO
--- NOTE | 2024-03-18 12:12 | PC.NURSE ---
RE; med rec this RN completed med rec, called [facility] to verify all medications verbally provided by patient
[2024-03-18 12:14] LABS: Basophils Percent Auto 0.3 % (0-2); Eosinophils Percent Auto 0.3 % (0-4); Hemoglobin 14.4 g/dl (14.0-18.0); Imm Gran Abs Auto 0.02 X10*3/uL (0.00-0.03); Imm Gran Pct Auto 0.3 % (0.0-0.4); Lymphocytes Absolute Auto 0.8 X10*3/uL (1.2-4.9); Lymphocytes Percent Auto 11.9 % (20-40); Mean Corpuscular HGB Conc 32.7 g/dl (31.0-36.0); Mean Corpuscular Hemoglobin 31.1 pg (27.0-33.0); Mean Platelet Volume 9.4 fL (9.4-12.4); Monocytes Absolute Auto 0.6 X10*3/uL (0.1-1.2); Monocytes Percent Auto 8.7 % (2-11); Neutrophils Absolute Auto 5.4 x10*3/uL (2.0-8.3); Neutrophils Percent Auto 78.5 % (45-73); Platelet Count 185 X10*3/uL (160-400); Red Blood Count 4.63 X10*6/uL (4.60-5.80); Red Cell Distribution Width 13.1 % (11.0-16.0); White Blood Count 6.8 X10*3/uL (4.8-10.8)
[2024-03-18 12:30] LABS: Alanine Aminotransferase 38 U/L (0-40); Albumin Level 4.4 g/dL (3.5-5.0); Alkaline Phosphatase 75 U/L (39-117); Anion Gap 9 (12-20); Aspartate Amino Transferase 27 U/L (5-37); Bilirubin Total 0.8 mg/dL (0.0-1.0); Blood Urea Nitrogen 19 mg/dL (9-16); Calcium 9.2 mg/dL (8.4-10.2); Carbon Dioxide 28 mmol/L (22-29); Chloride 107 mmol/L (96-108); Creatinine Clr Calc Pharmacy 73.6; Estimated Glomerular Filt Rate > 60; Ethanol < 10 mg/dL; Glucose Random 102 mg/dL (60-115); Potassium 4.3 mmol/L (3.3-5.1); Sodium 140 mmol/L (135-145)
--- NOTE | 2024-03-18 13:10 | MHC.CARE ---
Pt meets the criteria for IPLOC secondary to suicidal ideation and a plan for ECT. Pt will be admitted to the older adult inpatient psychiatric unit. Provider in agreement.
[2024-03-18 14:02] LABS: Appearance Urine Clear; Color Urine Yellow; Glucose Urine UA Negative (Negative); Leukocyte Esterase Urine Negative (Negative); Nitrite Urine Negative (Negative); PH 5.5 (5.0-9.0); Urine Blood Negative (Negative); Urine Ketones Negative (Negative); Urine Protein Negative (Neg-Trace)
[2024-03-18 14:11] LABS: Amphetamine Screen Urine Not Detected (Not Detect); Barbiturates, Urine Not Detected (Not Detect); Benzodiazepines Screen Urine Not Detected (Not Detect); Buprenorphine Scr Not Detected (Not Detect); Cannabinoid Screen Urine Not Detected (Not Detect); Cocaine Screen Urine Not Detected (Not Detect); Fentanyl, urine Not Detected (Not Detect); Methadone Screen, Urine Not Detected (Not Detect); Opiate Screen Urine Not Detected (Not Detect); Oxycodone Screen Urine Not Detected (Not Detect); Phencyclidine Screen Urine Not Detected (Not Detect)
--- NOTE | 2024-03-18 16:36 | PHA.MEDREC ---
Pharmacy Consult ? Medication Reconciliation Pharmacy has REVIEWED the medication reconciliation. Called [facility] to confirm all medications. Not sure why patients claims are not showing on home medications list.
[2024-03-18 17:15] VITALS: BP 135/76; PULSE 54; RESP 18; TEMP 36; O2SAT 99
--- NOTE | 2024-03-18 18:40 | PC.ADMIT ---
Patient arrived to the unit at 17:05 from ED/POD for increased depression, anxiety, SI since a cardiac event in the summer. Alert and oriented x4. Patient makes eye contact, speech clear, appears anxious. Said he talked to the doctor before his arrival to the hospital. His friend brought him to the [facility] ED. Martir has a history of suicide attempt by medication overdose forty years ago and number of inpatient psychiatric hospitalizations. Pt said at times has thoughts of SI without plan or intent. Pt denies any substance use. Skin check completed and WNL. Wearing contact lenses. On arrival his VS are as follow: T 96.8, P 54, BP 135/76, O2sat 99% on RA. Denies pain. Ambulates independently with steady gait. No known allergies. Here on CV status. Pt oriented to the unit and his room. At this time visiting with his friend.
[2024-03-18 18:56] LABS: Alanine Aminotransferase 32 U/L (0-40); Albumin Level 4.2 g/dL (3.5-5.0); Alkaline Phosphatase 69 U/L (39-117); Anion Gap 12 (12-20); Aspartate Amino Transferase 26 U/L (5-37); Bilirubin Total 0.6 mg/dL (0.0-1.0); Blood Urea Nitrogen 22 mg/dL (9-16); Calcium 9.4 mg/dL (8.4-10.2); Carbon Dioxide 28 mmol/L (22-29); Chloride 106 mmol/L (96-108); Creatinine Clr Calc Pharmacy 52.4; Estimated Glomerular Filt Rate > 60; Glucose Random 123 mg/dL (60-115); Potassium 3.9 mmol/L (3.3-5.1); Sodium 142 mmol/L (135-145); Total Protein 6.5 g/dL (6.5-8.0)
[2024-03-18 20:00] VITALS: BP 135/77; PULSE 62; RESP 16; TEMP 36.3; O2SAT 100
[2024-03-18 20:25] VITALS: BP 135/77; PULSE 62
[2024-03-18] MEDS: Metoprolol Tartrate 25 MG TABLET PO (20:25)
[2024-03-18] MEDS: Mirtazapine 30 MG TABLET PO (20:25)
[2024-03-18] MEDS: Ticagrelor 90 MG TABLET PO (20:25)
[2024-03-18] MEDS: clonazePAM 0.5 MG TABLET PO (20:26)
--- NOTE | 2024-03-19 | ECG_ITS ---
Test Reason : ECT clearance Blood Pressure : / mmHG Vent. Rate : 054 BPM Atrial Rate : 054 BPM P-R Int : 170 ms QRS Dur : 082 ms QT Int : 402 ms P-R-T Axes : 073 046 048 degrees QTc Int : 381 ms Sinus bradycardia Otherwise normal ECG When compared with ECG of 18-MAR-2024 13:01, No significant change was found Referred By: Trenton Foster Electronically Signed By:GABBY RASHID MD
[2024-03-19] MEDS: clonazePAM 0.5 MG TABLET PO (04:32)
[2024-03-19 07:50] VITALS: BP 122/74; PULSE 65; RESP 18; TEMP 36.4; O2SAT 98
[2024-03-19] MEDS: Aspirin Enteric Coated 81 MG TABLET.DR PO (08:10)
[2024-03-19] MEDS: Cholecalciferol (Vitamin D3) 25 MCG TABLET PO (08:10)
[2024-03-19] MEDS: Atorvastatin Calcium 80 MG TABLET PO (08:11)
[2024-03-19] MEDS: Cyanocobalamin (Vitamin B-12) 1,000 MCG TABLET 1000 MCG PO (08:11)
[2024-03-19] MEDS: Ticagrelor 90 MG TABLET PO ×2 (08:11→19:53)
[2024-03-19] MEDS: Metoprolol Tartrate 25 MG TABLET PO ×2 (08:11→19:53)
--- NOTE | 2024-03-19 09:39 | HO.PSYADMNOT ---
HPI Date of Service: 03/19/24 Chief Complaint: depression Sources of Information: patient interviewed, chart reviewed and crisis/core team assessment reviewed Additional Sources of Information: reviewed by neurology HPI Subjective Notes: Conditional Voluntary Narrative: Pt seen 10 am 03/19/24 The patient is a 73-year-old male with a long history of recurrent depression with mixed anxiety symptoms. The patient has been increasingly depressed and agitated over the past number of weeks and came to the hospital regarding consideration of ECT which has always helped him in the past in which she did complete a series last year. His psychiatrist is Dr. Lupillo vazquez. He has been prescribed Klonopin 0.5 t.i.d. and mirtazapine 30 mg a day. He has intermittently been given treatment with ketamine. Patient has been increasingly ruminating with thoughts that he would be better off periods of increased anxiety racing thoughts. Patient has been hospitalized multiple times throughout his life has been on the psychiatric unit at [place] a few times previously and has been treated generally in the past with ECT for which she had a good effect. Patient has a long history of no response to conventional antidepressant treatment. The patient also has been more anxious since he had a stent placed in his right coronary artery over the summer with no sequela no chest pain or shortness breath. The other coronary arteries were reportedly unremarkable Past Psychiatric History: hosps: reports several hospitalizations about 15 years ago, stating he has been inpatient at [facility], [facility], and [facility]. per DC summary in medical records, pt was inpatient at [facility] in 2011 and received ECT. SA: pt reports one attempt in his 20s and another in his 40s, via overdose and cutting. SIB: denies any Hx. not currently in outpatient Tx. does not wish to take medications but has found ECT very helpful. Medical Evaluation Reviewed: Yes no acute changes ekg unremarkable [facility] Medical History (Updated 03/18/24 @ 14:34 by Francisca Smith) Cervicalgia Chronic migraine without aura, intractable, without status migrainosus Routine medical exam Suicidal ideation Arachnoid cyst Meningioma History of electroconvulsive therapy Memory loss Depression Narrative: Right coronary stenting please see emergency room physician note Surgical History History of heart artery stent H/O eye surgery Family History: brother - completed suicide mother - severe depression Social History: lives in [place]. rents an apartment but has essentially been living with a platonic female friend recently, in her home that she owns. they share dogs at the home. has 1 son, 33 yo. . 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 states he has a law degree but does not practice. Trauma History: none reported Diagnostics Vital Signs (24Hr): Vital Signs - 24 hr 03/18/24 11:10 03/18/24 11:59 03/18/24 17:15 Temperature 97.6 F 96.8 F Pulse Rate 54 54 Respiratory Rate 18 16 18 Blood Pressure 125/78 135/76 Pulse Oximetry 98 99 Oxygen Delivery Method Room Air Room Air 03/18/24 20:00 03/18/24 20:25 03/19/24 07:50 Temperature 97.4 F 97.5 F Pulse Rate 62 62 65 Respiratory Rate 16 18 Blood Pressure 135/77 135/77 122/74 Pulse Oximetry 100 98 Oxygen Delivery Method Room Air Room Air BMI result Body Mass Index 20.0 Labs 03/18/24 12:09 03/18/24 18:20 Labs: Laboratory Results - last 48 hr 03/18/24 03/18/24 03/18/24 12:09 13:51 18:20 WBC 6.8 RBC 4.63 Hgb 14.4 Hct 44.0 MCV 95.0 MCH 31.1 MCHC 32.7 RDW 13.1 Plt Count 185 MPV 9.4 Immature Gran % (Auto) 0.3 Neut % (Auto) 78.5 H Lymph % (Auto) 11.9 L [place] % (Auto) 8.7 Eos % (Auto) 0.3 Baso % (Auto) 0.3 Lymph # (Auto) 0.8 L [place] # (Auto) 0.6 Eos # (Auto) 0.0 Baso # (Auto) 0.0 Abs Immat Gran (auto) 0.02 Absolute Neuts (auto) 5.4 Absolute Nucleated RBC 0.000 Nucleated RBC % (auto) 0.0 Sodium 140 142 Potassium 4.3 3.9 Chloride 107 106 Carbon Dioxide 28 28 Anion Gap 9 L 12 BUN 19 H 22 H Creatinine 0.84 1.18 Estim Creat Clear Calc 73.6 52.4 Estimated GFR > 60 > 60 Random Glucose 102 123 H Calcium 9.2 9.4 Total Bilirubin 0.8 0.6 AST 27 26 ALT 38 32 Alkaline Phosphatase 75 69 Total Protein 7.0 6.5 Albumin 4.4 4.2 Urine Color Yellow Urine Appearance Clear Urine pH 5.5 Ur Specific [place] 1.020 Urine Protein Negative Urine Glucose (UA) Negative Urine Ketones Negative Urine Blood Negative Urine Nitrite Negative Ur Leukocyte Esterase Negative Urine Opiates Screen Not Detected Ur Buprenorphine Scrn Not Detected Ur Oxycodone Screen Not Detected Urine Methadone Screen Not Detected Urine Fentanyl Screen Not Detected Ur Barbiturates Screen Not Detected Ur Phencyclidine Scrn Not Detected Ur Amphetamines Screen Not Detected U Benzodiazepines Scrn Not Detected Urine Cocaine Screen Not Detected U Marijuana (THC) Screen Not Detected Ethyl Alcohol < 10 Meds/Allergies Meds Home Medications ?Medication ?Instructions ?Recorded ?Confirmed ?Type aspirin 81 mg tablet,delayed 81 mg PO DAILY 12/18/23 03/18/24 History release atorvastatin 80 mg tablet 80 mg PO DAILY 12/18/23 03/18/24 History cholecalciferol (vitamin D3) 25 25 mcg PO DAILY 12/20/23 03/18/24 History mcg (1,000 unit) capsule mecobalamin (vitamin B12) 1,000 1,000 mcg PO DAILY 12/20/23 03/18/24 History mcg lozenges aripiprazole 5 mg tablet 5 mg PO DAILY 03/18/24 03/18/24 History clonazepam 0.5 mg tablet 1 tab PO TID PRN anxiety 03/18/24 03/18/24 History clonidine HCl 0.1 mg tablet 0.1 mg PO TID PRN Anxiety 03/18/24 03/18/24 History lurasidone 40 mg tablet 40 mg PO DAILY 03/18/24 03/18/24 History metoprolol tartrate 25 mg tablet 25 mg PO BID 03/18/24 03/18/24 History mirtazapine 30 mg tablet 30 mg PO BEDTIME 03/18/24 03/18/24 History ticagrelor 90 mg tablet (Brilinta) 90 mg PO BID 03/18/24 03/18/24 History Allergies Allergies Allergy/AdvReac Type Severity Reaction Status Date / Time No Known Allergies Allergy Mild NKA Verified 03/18/24 11:14 Mental Status Exam Mental Status Exam Patient Appearance: Appropriate Patient Orientation: Person, Place, Time and Situation Level of Consciousness: Awake Patient Behavior: Talkative, Good Eye Contact and Pacing Mood Description: Depressed, Anxious and Apprehensive Affect Description: Depressed and Anxious Patient Cognition Impaired: Yes Ability to Follow Directions: Good Speech Pattern: Perseverating and Rapid Memory Description: Intact Hallucinations: None Delusions: Not Present Thought Process: Rumination Thought Content: positive for Perseveration Depressive Symptoms: Increased Anxiety, Insomnia, Thoughts of /Suicide and Difficulty Concentrating Abnormal Motor Activity Signs and Symptoms: Hyperactivity Judgement and Insight: Patient with some degree of racing thoughts agitation states he can maintain his safety at home he is somewhat desperate to have ECT understands medical clearance process in some increased risk with small meningioma Assessment & Plan Assessment & Plan (1) Major depressive disorder, recurrent severe without psychotic features: Status: Acute Code(s): F33.2 - Major depressive disorder, recurrent severe without psychotic features (2) Meningioma: Status: Acute Code(s): D32.9 - Benign neoplasm of meninges, unspecified (3) Chronic migraine without aura, intractable, without status migrainosus: Status: Acute Code(s): G43.719 - Chronic migraine without aura, intractable, without status migrainosus Plan The patient is a 73-year-old male with a long history of recurrent agitated depression question of mixed states who tends to have severe anxiety racing thoughts and severe difficulty and locks settings. Discussed with patient need to get head CT scan neuro consult prior to starting ECT. If patient tolerates 1st ECT would most likely benefit from discharge and continue as an outpatient. Will discuss case with outpatient psychiatrist Dr. Lupillo vazquez. Patient is scheduled for ECT tomorrow. Risk factor small meningioma tolerated treatment previously no change in size of meningioma discussed with patient some increase risk of intracranial pressure if have symptoms would need to remain hospitalized . Change Klonopin to lorazepam ECT hold night prior to ECT. Seroquel for racing thoughts anxiety impulsivity Question of sub syndrome will mixed states Patient educated on: diagnosis, medication risk/benefits and ECT Informed Consent: understands Reason for continued inpatient stay Substantial Risk for: inability to function and rapid decompensation Statement Statement: I have reviewed the history and physical and performed a pertinent examination on my patient. No changes have occurred unless specified. If the History and Physical was not performed prior to admission, the Hospitalist's service will be consulted for completing the admission physical. Pt seen 1030 am 03/19/24 Time Spent With Patient Time: Total time managing care of this patient today ____ minutes.
[2024-03-19 09:42] LABS: Cholesterol 135 mg/dL (<200); HDL Cholesterol 45 mg/dL (>40); LDL Cholesterol Calculated 75 mg/dL (<100); Triglycerides 75 mg/dL (<150)
[2024-03-19] MEDS: QUEtiapine Fumarate 25 MG TABLET PO ×2 (11:58→19:52)
[2024-03-19 13:31] VITALS: BP 116/71
[2024-03-19] MEDS: cloNIDine HCL 0.1 MG TABLET PO ×2 (13:31→19:59)
--- NOTE | 2024-03-19 14:19 | PM.NEUROCN ---
History of Present Illness Data of Consult Service Date: 03/19/24 Primary Care Provider: Unknown Physician HPI Reason for consult: Neurological Clearance for ECT therapy for severe depression This is a 73-year-old man with a history of chronic severe depression was scheduled for ECT treatments. He's had ECT treatments about 2 years ago also. We were asked to consult on him for neurological clearance related to the finding of a calcified meningioma and a small arachnoid cyst in the posterior fossa, which was also present on a previous CAT scan in April of 2022. Patient has no history of seizures. I have reviewed his CAT scan of the head that was done today and found that it is unchanged from the previous CAT scan of April 2022 with the following findings:No acute intracranial pathology. 1.4 cm partially calcified meningioma in the Right parietal parasagittal region, and A small arachnoid cyst located within the posterior fossa superior to the cerebellar vermis. [facility] Past Medical History Medical History (Updated 03/18/24 @ 14:34 by Francisca Smith) Cervicalgia Chronic migraine without aura, intractable, without status migrainosus Routine medical exam Suicidal ideation Arachnoid cyst Meningioma History of electroconvulsive therapy Memory loss Depression Surgical History Surgical History History of heart artery stent H/O eye surgery Social History Social History Household Members: Other Household Members Other:: house mates Housing: Apartment Alcohol intake: unknown Patient Tobacco Use Status: Never used Tobacco Smoked in Last 30 Days: No Use of substances other than those prescribed or required for medical reasons: No Currently Displaying Signs/Symptoms of Drug Intoxication Withdrawal: No Advance Directives: No Advance Directives Information Provided: Yes Do you have thoughts of harming others: None Do you have a plan to hurt others: No Plan Nutrition Risks: No Nutritional Risk service: No Sexual orientation: Don't Know Meds Allergies Allergy/AdvReac Type Severity Reaction Status Date / Time No Known Allergies Allergy Mild NKA Verified 03/18/24 11:14 Active Medications: Current Medications Acetaminophen (Acetaminophen 325 Mg Tablet) 650 mg PO Q6H PRN PRN Reason: Headache/Pain Mild Scale (1-3) Al Hydroxide/Mg Hydroxide (Magnesium Hydrox/Alum Hydrox 30 Ml Oral.Susp) 30 ml PO Q6H PRN PRN Reason: Heartburn/Nausea Aspirin (Aspirin Enteric Coated 81 Mg Tablet.) 81 mg PO DAILY [facility] Last Admin: 03/19/24 08:10 Dose: 81 mg Atorvastatin Calcium (Atorvastatin Calcium 80 Mg Tablet) 80 mg PO DAILY [facility] Last Admin: 03/19/24 08:11 Dose: 80 mg Clonidine HCl (Clonidine Hcl 0.1 Mg Tablet) 0.1 mg PO TID PRN; Protocol PRN Reason: Anxiety Last Admin: 03/19/24 13:31 Dose: 0.1 mg Cyanocobalamin (Cyanocobalamin (Vitamin B-12) 1,000 Mcg Tablet) 1,000 mcg PO DAILY [facility] Last Admin: 03/19/24 08:11 Dose: 1,000 mcg Lorazepam (Lorazepam 0.5 Mg Tablet) 0.5 mg PO TID PRN PRN Reason: Anxiety Magnesium Hydroxide (Milk Of Magnesia 30 Ml Oral.Susp) 30 ml PO DAILY PRN PRN Reason: Constipation Metoprolol Tartrate (Metoprolol Tartrate 25 Mg Tablet) 25 mg PO BID [facility]; Protocol Last Admin: 03/19/24 08:11 Dose: 25 mg Mirtazapine (Mirtazapine 7.5 Mg Tablet) 7.5 mg PO BEDTIME [facility] Quetiapine Fumarate (Quetiapine Fumarate 25 Mg Tablet) 25 mg PO Q6H PRN PRN Reason: agitation Ticagrelor (Ticagrelor 90 Mg Tablet) 90 mg PO BID [facility] Last Admin: 03/19/24 08:11 Dose: 90 mg Trazodone HCl (Trazodone Hcl 50 Mg Tablet) 50 mg PO BEDTIME MRX1 PRN PRN Reason: Insomnia Vitamin D (Cholecalciferol (Vitamin D3) 25 Mcg Tablet) 25 mcg PO DAILY [facility] Last Admin: 03/19/24 08:10 Dose: 25 mcg Home Medications ?Medication ?Instructions ?Recorded ?Confirmed ?Last Taken ?Type aspirin 81 mg tablet,delayed 81 mg PO DAILY 12/18/23 03/18/24 03/18/24 History release atorvastatin 80 mg tablet 80 mg PO DAILY 12/18/23 03/18/24 03/18/24 History cholecalciferol (vitamin D3) 25 25 mcg PO DAILY 12/20/23 03/18/24 03/18/24 History mcg (1,000 unit) capsule mecobalamin (vitamin B12) 1,000 1,000 mcg PO DAILY 12/20/23 03/18/24 03/18/24 History mcg lozenges aripiprazole 5 mg tablet 5 mg PO DAILY 03/18/24 03/18/24 03/18/24 History clonazepam 0.5 mg tablet 1 tab PO TID PRN anxiety 03/18/24 03/18/24 03/18/24 History clonidine HCl 0.1 mg tablet 0.1 mg PO TID PRN Anxiety 03/18/24 03/18/24 03/18/24 History lurasidone 40 mg tablet 40 mg PO DAILY 03/18/24 03/18/24 03/18/24 History metoprolol tartrate 25 mg tablet 25 mg PO BID 03/18/24 03/18/24 03/18/24 History mirtazapine 30 mg tablet 30 mg PO BEDTIME 03/18/24 03/18/24 03/17/24 History ticagrelor 90 mg tablet (Brilinta) 90 mg PO BID 03/18/24 03/18/24 03/18/24 History Physical Exam Vital Signs: Vital Signs: Last Vital Signs Temp 97.5 F 03/19/24 07:50 Pulse 65 03/19/24 07:50 Resp 18 03/19/24 07:50 BP 116/71 03/19/24 13:31 Pulse Ox 98 03/19/24 07:50 O2 Del Method Room Air 03/19/24 07:50 BMI result Body Mass Index 20.0 Neuro: Other: Nonfocal Results Labs 03/18/24 12:09 03/18/24 18:20 Labs: BMP 03/18/24 18:20 Sodium 142 Potassium 3.9 Chloride 106 Carbon Dioxide 28 BUN 22 H Creatinine 1.18 Calcium 9.4 Liver Function 03/18/24 Range/Units 18:20 Total Bilirubin 0.6 (0.0-1.0) mg/dL AST 26 (5-37) U/L ALT 32 (0-40) U/L Alkaline Phosphatase 69 (39-117) U/L Albumin 4.2 (3.5-5.0) g/dL Assessment and Plan (1) Depression: Status: Acute (2) Arachnoid cyst: Status: Acute This consultation was requested for ECT clearance. His noncontrast head CT revealed a calcified meningioma and an arachnoid cyst as described above. These lesions do not increase risk from electroconvulsive therapy. No premedication is needed. Meningioma is calcified and unchanged from CT 2 yrs earlier, as is the Arachnoid cyst. Both remain asymptomatic. No further imaging or intervention is needed. (3) Meningioma: Status: Acute This consultation was requested for ECT clearance. His noncontrast head CT revealed a calcified meningioma and an arachnoid cyst as described above. These lesions do not increase risk from electroconvulsive therapy. No premedication is needed. Meningioma is calcified and unchanged from CT 2 yrs earlier, as is the Arachnoid cyst. Both remain asymptomatic. No further imaging or intervention is needed. Procedures Date of Service Date of Service: 03/19/24
--- NOTE | 2024-03-19 14:52 | PM.EVENT ---
Event Note Date of Service: 03/19/24 Event Note: neuro appreciated patient does not appear to have any contraindications to proceeding with planned ECT Time Spent With Patient Time: Total time managing care of this patient today ____ minutes.
[2024-03-19 19:53] VITALS: BP 121/68; PULSE 55
[2024-03-19] MEDS: Mirtazapine 7.5 MG TABLET PO (19:58)
[2024-03-19 19:59] VITALS: BP 121/65
[2024-03-19] MEDS: LORazepam 0.5 MG TABLET PO (19:59)
[2024-03-19 20:21] VITALS: BP 121/68; PULSE 55; RESP 16; TEMP 36.5; O2SAT 99
--- NOTE | 2024-03-19 22:22 | HO.PM.IMCN ---
History of Present Illness Data of Consult Service Date: 03/19/24 Requesting physician: Trenton Foster Primary Care Provider: Unknown Physician HPI Reason for consult: ECT risk stratification 73-year-old male with a history of depression, migraine headaches, cervicalgia, meningioma, coronary artery disease with cardiac catheterization and stent 09/2023 at [facility], consulted for ECT clearance. Patient reports that he had ECT years ago and found it to be helpful and would like to do it again. He has no medical concerns currently including chest pain, shortness of breath, abdominal pain, nausea, vomiting, headache, runny nose, congestion, sore throat, cough, numbness or tingling. Patient reports he had ECT done in the past which he found to be helpful. Specifically requested to be brought to [facility] to resume ECT. He denies any pulmonary conditions including asthma, COPD or sleep apnea. History cardiac stent in September 2023. Recent echocardiogram at [facility] with normal EF per ED note. No history of arrhythmias or CHF. Consulted by Neurology today for ECT clearance due to calcified meningioma and an arachnoid cyst. It was recommended that these lesions do not increased risk for electroconvulsive therapy, no premedication is needed and meningioma is calcified and unchanged from CT 2 years ago. The patient is asymptomatic and no further imaging or intervention is needed. From a neurology standpoint the patient was cleared for ECT. He denies any history of seizure disorder or stroke. He also denies a history of bleeding disorder or DVT/PE. No previous complications from anesthesia. EKG reviewed, negative for prolonged QTC, mild bradycardia (sinus 54). Review of Systems Constitutional: Constitutional: Denies chills, Denies fatigue, Denies fever(s) and Denies headache(s) Eyes: Eyes: Denies change in vision ENT: Denies headache(s), Denies nasal congestion, Denies nasal discharge, Denies post nasal drip and Denies sore throat Cardiovascular: Cardiovascular: Denies chest pain, Denies rapid heart rate, Denies lightheadedness and Denies dyspnea Respiratory: Respiratory: Denies chest congestion, Denies cough, Denies dyspnea and Denies wheezing Gastrointestinal: Gastrointestinal: Denies constipation, Denies diarrhea, Denies nausea and Denies vomiting Genitourinary: Genitourinary: Denies dysuria and Denies urinary urgency Musculoskeletal: Musculoskeletal: Denies myalgias and Denies tingling Integumentary/Breasts: Skin/Breast: Denies rash Neurologic: Denies headache(s), Denies seizure-like activity and Denies tingling Psychiatric: Psychiatric: Reports depression Endocrine: Endocrine: Denies fatigue Hematologic/Lymphatic: Hematologic/Lymphatic: Denies easy bleeding and Denies easy bruising Allergic/Immunologic: Allergic/Immunologic: Denies wheezing [facility] Medical History (Updated 03/19/24 @ 22:26 by Keily Miller PA-C) Cervicalgia Chronic migraine without aura, intractable, without status migrainosus Routine medical exam Suicidal ideation Arachnoid cyst Meningioma History of electroconvulsive therapy Memory loss Depression Functional capacity: independent ambulation Surgical History History of heart artery stent H/O eye surgery Social History Household Members: Other Household Members Other:: house mates Housing: Apartment Alcohol intake: unknown Patient Tobacco Use Status: Never used Tobacco Smoked in Last 30 Days: No Use of substances other than those prescribed or required for medical reasons: No Currently Displaying Signs/Symptoms of Drug Intoxication Withdrawal: No Advance Directives: No Advance Directives Information Provided: Yes Do you have thoughts of harming others: None Do you have a plan to hurt others: No Plan Nutrition Risks: No Nutritional Risk service: No Sexual orientation: Don't Know Narrative: no smoking, etoh or drug use Meds Allergies Allergy/AdvReac Type Severity Reaction Status Date / Time No Known Allergies Allergy Mild NKA Verified 03/18/24 11:14 Active Medications: Current Medications Acetaminophen (Acetaminophen 325 Mg Tablet) 650 mg PO Q6H PRN PRN Reason: Headache/Pain Mild Scale (1-3) Al Hydroxide/Mg Hydroxide (Magnesium Hydrox/Alum Hydrox 30 Ml Oral.Susp) 30 ml PO Q6H PRN PRN Reason: Heartburn/Nausea Aspirin (Aspirin Enteric Coated 81 Mg Tablet.Dr) 81 mg PO DAILY [facility] Last Admin: 03/19/24 08:10 Dose: 81 mg Atorvastatin Calcium (Atorvastatin Calcium 80 Mg Tablet) 80 mg PO DAILY [facility] Last Admin: 03/19/24 08:11 Dose: 80 mg Clonidine HCl (Clonidine Hcl 0.1 Mg Tablet) 0.1 mg PO TID PRN; Protocol PRN Reason: Anxiety Last Admin: 03/19/24 19:59 Dose: 0.1 mg Cyanocobalamin (Cyanocobalamin (Vitamin B-12) 1,000 Mcg Tablet) 1,000 mcg PO DAILY [facility] Last Admin: 03/19/24 08:11 Dose: 1,000 mcg Lorazepam (Lorazepam 0.5 Mg Tablet) 0.5 mg PO TID PRN PRN Reason: Anxiety Last Admin: 03/19/24 19:59 Dose: 0.5 mg Magnesium Hydroxide (Milk Of Magnesia 30 Ml Oral.Susp) 30 ml PO DAILY PRN PRN Reason: Constipation Metoprolol Tartrate (Metoprolol Tartrate 25 Mg Tablet) 25 mg PO BID [facility]; Protocol Last Admin: 03/19/24 19:53 Dose: 25 mg Mirtazapine (Mirtazapine 7.5 Mg Tablet) 7.5 mg PO BEDTIME [facility] Last Admin: 03/19/24 19:58 Dose: 7.5 mg Quetiapine Fumarate (Quetiapine Fumarate 25 Mg Tablet) 25 mg PO Q6H PRN PRN Reason: agitation Last Admin: 03/19/24 19:52 Dose: 25 mg Ticagrelor (Ticagrelor 90 Mg Tablet) 90 mg PO BID [facility] Last Admin: 03/19/24 19:53 Dose: 90 mg Trazodone HCl (Trazodone Hcl 50 Mg Tablet) 50 mg PO BEDTIME MRX1 PRN PRN Reason: Insomnia Vitamin D (Cholecalciferol (Vitamin D3) 25 Mcg Tablet) 25 mcg PO DAILY [facility] Last Admin: 03/19/24 08:10 Dose: 25 mcg Home Medications ?Medication ?Instructions ?Recorded ?Confirmed ?Last Taken ?Type aspirin 81 mg tablet,delayed 81 mg PO DAILY 12/18/23 03/18/24 03/18/24 History release atorvastatin 80 mg tablet 80 mg PO DAILY 12/18/23 03/18/24 03/18/24 History cholecalciferol (vitamin D3) 25 25 mcg PO DAILY 12/20/23 03/18/24 03/18/24 History mcg (1,000 unit) capsule mecobalamin (vitamin B12) 1,000 1,000 mcg PO DAILY 12/20/23 03/18/24 03/18/24 History mcg lozenges aripiprazole 5 mg tablet 5 mg PO DAILY 03/18/24 03/18/24 03/18/24 History clonazepam 0.5 mg tablet 1 tab PO TID PRN anxiety 03/18/24 03/18/24 03/18/24 History clonidine HCl 0.1 mg tablet 0.1 mg PO TID PRN Anxiety 03/18/24 03/18/24 03/18/24 History lurasidone 40 mg tablet 40 mg PO DAILY 03/18/24 03/18/24 03/18/24 History metoprolol tartrate 25 mg tablet 25 mg PO BID 03/18/24 03/18/24 03/18/24 History mirtazapine 30 mg tablet 30 mg PO BEDTIME 03/18/24 03/18/24 03/17/24 History ticagrelor 90 mg tablet (Brilinta) 90 mg PO BID 03/18/24 03/18/24 03/18/24 History Physical Exam Vital Signs and Narrative: Vital Signs: Last Vital Signs Temp 97.7 F 03/19/24 20:21 Pulse 55 03/19/24 20:21 Resp 16 03/19/24 20:21 BP 121/68 03/19/24 20:21 Pulse Ox 99 03/19/24 20:21 O2 Del Method Room Air 03/19/24 20:21 BMI result Body Mass Index 20.0 General: AOx3, no acute distress Resp: CTA bilaterally CVS: S1, S2, RRR GI: +BS, NT, no distention Skin: Warm, dry Neuro: Cranial nerves II-XII grossly intact bilaterally. Motor grossly intact bilaterally Extremities: No LE edema Psych: Appropriate affect Results Labs 03/18/24 12:09 03/18/24 18:20 Labs: Laboratory Results - last 24 hr 03/19/24 08:40 Triglycerides 75 Cholesterol 135 LDL Cholesterol, Calc 75 HDL Cholesterol 45 Imaging Radiologist's Impressions: Impressions Head CT 03/19/24 11:23 IMPRESSION: 1. No acute intracranial pathology. 2. Stable right parasagittal meningioma at the right parietal lobe. 3. Stable arachnoid cyst superior to the cerebellar vermis. Electronically signed by: Xavier Carlos MD 03/19/2024 03:26 PM [facility] Assessment and Plan (1) Preprocedural examination: Status: Acute (2) Depression: Status: Acute Plan 73-year-old male with a history of depression, migraine headaches, cervicalgia, meningioma, coronary artery disease with cardiac catheterization and stent 09/2023 at [facility], consulted for ECT clearance. Based on stated past medical history and exam, there are no apparent medical contraindications to ECT. Patient without previous issues with anesthesia, has previously underwent ECT. RC RI class risk 1. No further treatment or workup indicated at this time.
[2024-03-20] VITALS (8 sets, daily range): BP systolic 106–125; BP diastolic 64–80; PULSE 51–63; RESP 16–20; TEMP 36.3–36.6; O2SAT 92–100
[2024-03-20] MEDS: Lactated Ringers 1,000 ML 100 ML IVCONT (07:08)
--- NOTE | 2024-03-20 07:40 | MHC.SHP ---
Pre-Procedural Eval Section A - 24 Hr Update-Section A only Date of Service: 03/20/24 The patient is an INPATIENT: Yes Changes since office visit: Yes Cold of Flu in the past 2 weeks, Yes New Medical Problems, Yes Changes in Medication and Yes Patient answered all questions The patient has been examined within 24 hours of the surgical procedure. The History & Physical has been completed within 30 days and I have reviewed it.: Yes Section B - Complete if H&P > 30 days Chief Complaint: depression Allergies: Allergies Allergy/AdvReac Type Severity Reaction Status Date / Time No Known Allergies Allergy Mild NKA Verified 03/18/24 11:14 Plan I have reviewed the history and physical and performed a pertinent physical examination on my patient. No changes have occurred unless specified. Time Spent With Patient Time: Total time managing care of this patient today ____ minutes.
--- NOTE | 2024-03-20 07:41 | HO.ECTPROC ---
ECT Procedure Note Diagnosis/Treatment Date of Service: 03/20/24 Diagnosis: Major Depressive Disorder Current Treatment Number: 1 Treatment: Series Interval Clinical Notes: Pt did well previously with ect ,known small hemangioma s/p rca stent. Tx B. F as previous tolerated ect had episstaxis post has of this vss no apparent connection with ect. Pt to be d/c and followup ect as an outpt DO NOT GIVE TORADOL next tx Time: Total time managing care of this patient today ____ minutes. ECT Settings Device: THYMATRON DGx Electrode Placement: Bifrontal Program/Pulse Width: 0.25 Energy Percent: 100 Seizure Duration By EEG (in seconds): 61 Medications Administration General Anesthetic: Etomidate (16) Muscle Relaxant: Succinylcholine (100) Ancillary Medications Analgesics: Torodol - Post ECT Miscillaneous Medications: Midazolam (2) Airway Management Airway Management: Bag Mask Ventilation
--- NOTE | 2024-03-20 08:54 | MHC.CLN ---
NUTRITION ADVISED THAT FINGER FOODS AND SAFETY TRAY NOT NEEDED BY PATIENT ON UNIT. PATIENT SCHEDULED FOR ECT THREE TIMES/WEEK.
--- NOTE | 2024-03-20 10:46 | HO.ANESPROP2 ---
[facility] Active Problems Active Problems: All Active Problems Preprocedural examination (Acute) Depression (Acute) Cervicalgia (Acute) Chronic migraine without aura, intractable, without status migrainosus (Acute) Status post cardiac surgery (Acute) New onset headache (Acute) Major depressive disorder, recurrent severe without psychotic features (Acute) Migraine (Acute) Arachnoid cyst (Acute) Meningioma (Acute) Past Medical History Medical History Cervicalgia Chronic migraine without aura, intractable, without status migrainosus Routine medical exam Suicidal ideation Arachnoid cyst Meningioma History of electroconvulsive therapy Memory loss Depression Functional capacity: independent ambulation Family History Family history of problems with anesthesia: No Surgical History Surgical History History of heart artery stent H/O eye surgery History of Problems with Anesthesia: No Social History Social History Household Members: Other Household Members Other:: house mates Housing: Apartment Alcohol intake: unknown Patient Tobacco Use Status: Never used Tobacco Advance Directives: No Advance Directives Information Provided: Yes service: No Sexual orientation: Don't Know Meds Allergies Allergy/AdvReac Type Severity Reaction Status Date / Time No Known Allergies Allergy Mild NKA Verified 03/20/24 09:26 Active Medications: Current Medications Acetaminophen (Acetaminophen 325 Mg Tablet) 650 mg PO Q6H PRN PRN Reason: Headache/Pain Mild Scale (1-3) Al Hydroxide/Mg Hydroxide (Magnesium Hydrox/Alum Hydrox 30 Ml Oral.Susp) 30 ml PO Q6H PRN PRN Reason: Heartburn/Nausea Aspirin (Aspirin Enteric Coated 81 Mg Tablet.Dr) 81 mg PO DAILY [facility] Last Admin: 03/19/24 08:10 Dose: 81 mg Atorvastatin Calcium (Atorvastatin Calcium 80 Mg Tablet) 80 mg PO DAILY [facility] Last Admin: 03/19/24 08:11 Dose: 80 mg Clonidine HCl (Clonidine Hcl 0.1 Mg Tablet) 0.1 mg PO TID PRN; Protocol PRN Reason: Anxiety Last Admin: 03/19/24 19:59 Dose: 0.1 mg Cyanocobalamin (Cyanocobalamin (Vitamin B-12) 1,000 Mcg Tablet) 1,000 mcg PO DAILY [facility] Last Admin: 03/19/24 08:11 Dose: 1,000 mcg Lactated Ringer's (Lr) 1,000 mls @ 100 mls/hr IVCONT .Q10H [facility] Last Admin: 03/20/24 07:08 Dose: 100 mls/hr Lorazepam (Lorazepam 0.5 Mg Tablet) 0.5 mg PO TID PRN PRN Reason: Anxiety Last Admin: 03/19/24 19:59 Dose: 0.5 mg Magnesium Hydroxide (Milk Of Magnesia 30 Ml Oral.Susp) 30 ml PO DAILY PRN PRN Reason: Constipation Metoprolol Tartrate (Metoprolol Tartrate 25 Mg Tablet) 25 mg PO BID [facility]; Protocol Last Admin: 03/19/24 19:53 Dose: 25 mg Mirtazapine (Mirtazapine 7.5 Mg Tablet) 7.5 mg PO BEDTIME [facility] Last Admin: 03/19/24 19:58 Dose: 7.5 mg Quetiapine Fumarate (Quetiapine Fumarate 25 Mg Tablet) 25 mg PO Q6H PRN PRN Reason: agitation Last Admin: 03/19/24 19:52 Dose: 25 mg Ticagrelor (Ticagrelor 90 Mg Tablet) 90 mg PO BID [facility] Last Admin: 03/19/24 19:53 Dose: 90 mg Trazodone HCl (Trazodone Hcl 50 Mg Tablet) 50 mg PO BEDTIME MRX1 PRN PRN Reason: Insomnia Vitamin D (Cholecalciferol (Vitamin D3) 25 Mcg Tablet) 25 mcg PO DAILY [facility] Last Admin: 03/19/24 08:10 Dose: 25 mcg Home Medications ?Medication ?Instructions ?Recorded ?Confirmed ?Last Taken ?Type aspirin 81 mg tablet,delayed 81 mg PO DAILY 12/18/23 03/18/24 03/18/24 History release atorvastatin 80 mg tablet 80 mg PO DAILY 12/18/23 03/18/24 03/18/24 History cholecalciferol (vitamin D3) 25 25 mcg PO DAILY 12/20/23 03/18/24 03/18/24 History mcg (1,000 unit) capsule mecobalamin (vitamin B12) 1,000 1,000 mcg PO DAILY 12/20/23 03/18/24 03/18/24 History mcg lozenges aripiprazole 5 mg tablet 5 mg PO DAILY 03/18/24 03/18/24 03/18/24 History clonazepam 0.5 mg tablet 1 tab PO TID PRN anxiety 03/18/24 03/18/24 03/18/24 History clonidine HCl 0.1 mg tablet 0.1 mg PO TID PRN Anxiety 03/18/24 03/18/24 03/18/24 History lurasidone 40 mg tablet 40 mg PO DAILY 03/18/24 03/18/24 03/18/24 History metoprolol tartrate 25 mg tablet 25 mg PO BID 03/18/24 03/18/24 03/18/24 History mirtazapine 30 mg tablet 30 mg PO BEDTIME 03/18/24 03/18/24 03/17/24 History ticagrelor 90 mg tablet (Brilinta) 90 mg PO BID 03/18/24 03/18/24 03/18/24 History Exam Height,Weight and Vital Signs: Height 5 ft 10 in Weight 63.106 kg Last Vital Signs Temp 97.4 F 03/20/24 08:16 Pulse 57 03/20/24 08:56 Resp 16 03/20/24 08:56 BP 113/71 03/20/24 08:56 Pulse Ox 94 03/20/24 08:56 O2 Del Method Room Air 03/20/24 08:56 Pertinent Lab Results Pertinent Lab Results: Laboratory Tests 03/18/24 03/18/24 03/18/24 12:09 13:51 18:20 WBC 6.8 RBC 4.63 Hgb 14.4 Hct 44.0 MCV 95.0 MCH 31.1 MCHC 32.7 RDW 13.1 Plt Count 185 MPV 9.4 Immature Gran % (Auto) 0.3 Neut % (Auto) 78.5 H Lymph % (Auto) 11.9 L [place] % (Auto) 8.7 Eos % (Auto) 0.3 Baso % (Auto) 0.3 Lymph # (Auto) 0.8 L [place] # (Auto) 0.6 Eos # (Auto) 0.0 Baso # (Auto) 0.0 Abs Immat Gran (auto) 0.02 Absolute Neuts (auto) 5.4 Absolute Nucleated RBC 0.000 Nucleated RBC % (auto) 0.0 Sodium 140 142 Potassium 4.3 3.9 Chloride 107 106 Carbon Dioxide 28 28 Anion Gap 9 L 12 BUN 19 H 22 H Creatinine 0.84 1.18 Estim Creat Clear Calc 73.6 52.4 Estimated GFR > 60 > 60 Random Glucose 102 123 H Calcium 9.2 9.4 Total Bilirubin 0.8 0.6 AST 27 26 ALT 38 32 Alkaline Phosphatase 75 69 Total Protein 7.0 6.5 Albumin 4.4 4.2 Triglycerides Cholesterol LDL Cholesterol, Calc HDL Cholesterol Urine Color Yellow Urine Appearance Clear Urine pH 5.5 Ur Specific [place] 1.020 Urine Protein Negative Urine Glucose (UA) Negative Urine Ketones Negative Urine Blood Negative Urine Nitrite Negative Ur Leukocyte Esterase Negative Urine Opiates Screen Not Detected Ur Buprenorphine Scrn Not Detected Ur Oxycodone Screen Not Detected Urine Methadone Screen Not Detected Urine Fentanyl Screen Not Detected Ur Barbiturates Screen Not Detected Ur Phencyclidine Scrn Not Detected Ur Amphetamines Screen Not Detected U Benzodiazepines Scrn Not Detected Urine Cocaine Screen Not Detected U Marijuana (THC) Screen Not Detected Ethyl Alcohol < 10 03/19/24 08:40 WBC RBC Hgb Hct MCV MCH MCHC RDW Plt Count MPV Immature Gran % (Auto) Neut % (Auto) Lymph % (Auto) [place] % (Auto) Eos % (Auto) Baso % (Auto) Lymph # (Auto) [place] # (Auto) Eos # (Auto) Baso # (Auto) Abs Immat Gran (auto) Absolute Neuts (auto) Absolute Nucleated RBC Nucleated RBC % (auto) Sodium Potassium Chloride Carbon Dioxide Anion Gap BUN Creatinine Estim Creat Clear Calc Estimated GFR Random Glucose Calcium Total Bilirubin AST ALT Alkaline Phosphatase Total Protein Albumin Triglycerides 75 Cholesterol 135 LDL Cholesterol, Calc 75 HDL Cholesterol 45 Urine Color Urine Appearance Urine pH Ur Specific [place] Urine Protein Urine Glucose (UA) Urine Ketones Urine Blood Urine Nitrite Ur Leukocyte Esterase Urine Opiates Screen Ur Buprenorphine Scrn Ur Oxycodone Screen Urine Methadone Screen Urine Fentanyl Screen Ur Barbiturates Screen Ur Phencyclidine Scrn Ur Amphetamines Screen U Benzodiazepines Scrn Urine Cocaine Screen U Marijuana (THC) Screen Ethyl Alcohol Airway Mallampati Class: II TM Dist: >3cm Neck ROM: Full Heart: RRR Lungs: CTA Assessment and Plan Assessment Anesthesia Assessment: Anesthesia Plan Discussed and Chart Reviewed Final Anesthetic Review Family History of Problems with Anesthesia: No History of Problems with Anesthesia: No NPO: Yes ASA Class: III Final Preanesthetic Review: Meds/Allgs Chart Reviewed, Consent Obtained/Reviewed and Anes Risks/Benef Reviewed Patient Risk: Low Procedure Risk: Low Anesthetic Plan Anesthetic Plan: GA Disposition: Standard PACU
--- NOTE | 2024-03-20 10:48 | HO.POSTANES ---
Post Anesthesia Evaluation Post Anesthesia Evaluation Date of Service: 03/20/24 Vital Signs: Vital Signs Temp Pulse Resp BP Pulse Ox O2 Del Method 03/20/24 08:56 57 16 113/71 94 Room Air 03/20/24 08:41 60 16 124/79 94 Room Air 03/20/24 08:26 60 16 106/80 94 Room Air 03/20/24 08:21 63 16 117/64 94 Room Air 03/20/24 08:16 97.4 F 63 16 106/80 92 Room Air 03/20/24 06:41 97.4 F 55 20 125/71 100 Room Air 03/20/24 05:36 97.8 F 51 17 117/73 99 03/20/24 04:30 60 Anesthesia: General Mental Status: Awake Pain Control: Satisfactory Nausea/Vomiting: None Hydration: Adequate Anesthesia-Related Issues: No Anes. Related Issues Comments: Pt. has h/o frequent nose bleeding. No NC was used still nose bleeding happened from right nostril. It did not stop so pt. was sent to ER for further treatment.
--- NOTE | 2024-03-20 13:38 | PC.NURSE ---
Patient sent to ED for nose bleed from ECT. pt had cauterization to nose and will be discharged home per Dr Epperson
--- NOTE | 2024-03-20 14:49 | PM.PSYDC ---
DS: Providers Provider Date of Service: 03/20/24 Date of admission: 03/18/24 14:30 Date of discharge: 03/20/24 Primary care physician: Unknown Physician Admitting clinician: Akhil Epperson Attending physician on admission: Akhil Epperson Consults: 03/19/24 10:58 Consult to Hospitalist Routine Comment: Consulting Provider: [facility] Hospitalists Reason For Exam: ECT clearance 03/19/24 11:00 Consult to Neurology Routine Consulting Provider: [facility] [place] [place] [facility] Reason for consultation: pre op eval ect hx meningioma Has provider been notified: No Attending physician on discharge: Akhil Epperson DS: Diagnosis Discharge Diagnosis (1) Major depressive disorder, recurrent severe without psychotic features: Status: Acute (2) Status post cardiac surgery: Status: Acute (3) Meningioma: Status: Acute DS: Medications Discharge Medications Home Medications: Home Medications ?Medication ?Instructions ?Recorded ?Confirmed aspirin 81 mg tablet,delayed 81 mg PO DAILY 12/18/23 03/18/24 release atorvastatin 80 mg tablet 80 mg PO DAILY 12/18/23 03/18/24 cholecalciferol (vitamin D3) 25 25 mcg PO DAILY 12/20/23 03/18/24 mcg (1,000 unit) capsule mecobalamin (vitamin B12) 1,000 1,000 mcg PO DAILY 12/20/23 03/18/24 mcg lozenges clonidine HCl 0.1 mg tablet 0.1 mg PO TID PRN Anxiety 03/18/24 03/18/24 metoprolol tartrate 25 mg tablet 25 mg PO BID 03/18/24 03/18/24 ticagrelor 90 mg tablet (Brilinta) 90 mg PO BID 03/18/24 03/18/24 Previous Rx's ?Medication ?Instructions ?Recorded lorazepam 0.5 mg tablet 0.5 mg PO TID PRN Anxiety 15 days 03/20/24 #45 tabs mirtazapine 30 mg tablet 30 mg PO BEDTIME #1 tab 03/20/24 quetiapine 25 mg tablet 25 mg PO Q6H PRN agitation 30 days 03/20/24 #45 tabs Mental Status Exam Mental Status Exam Patient Appearance: Appropriate Patient Orientation: Person, Place, Time and Situation Level of Consciousness: Awake Patient Behavior: Talkative, Good Eye Contact and Pacing Mood Description: Depressed, Anxious and Apprehensive Affect Description: Depressed and Anxious Patient Cognition Impaired: Yes Ability to Follow Directions: Good Speech Pattern: Perseverating and Rapid Memory Description: Intact Hallucinations: None Delusions: Not Present Thought Process: Rumination Thought Content: positive for Perseveration Depressive Symptoms: Increased Anxiety, Insomnia, Thoughts of /Suicide and Difficulty Concentrating Data Data Completed and Pending Completed studies during hospitalization [Text1]: 03/18/24 03/18/24 03/18/24 12:09 13:51 18:20 WBC 6.8 RBC 4.63 Hgb 14.4 Hct 44.0 MCV 95.0 MCH 31.1 MCHC 32.7 RDW 13.1 Plt Count 185 MPV 9.4 Immature Gran % (Auto) 0.3 Neut % (Auto) 78.5 H Lymph % (Auto) 11.9 L [place] % (Auto) 8.7 Eos % (Auto) 0.3 Baso % (Auto) 0.3 Lymph # (Auto) 0.8 L [place] # (Auto) 0.6 Eos # (Auto) 0.0 Baso # (Auto) 0.0 Abs Immat Gran (auto) 0.02 Absolute Neuts (auto) 5.4 Absolute Nucleated RBC 0.000 Nucleated RBC % (auto) 0.0 Sodium 140 142 Potassium 4.3 3.9 Chloride 107 106 Carbon Dioxide 28 28 Anion Gap 9 L 12 BUN 19 H 22 H Creatinine 0.84 1.18 Estim Creat Clear Calc 73.6 52.4 Estimated GFR > 60 > 60 Random Glucose 102 123 H Calcium 9.2 9.4 Total Bilirubin 0.8 0.6 AST 27 26 ALT 38 32 Alkaline Phosphatase 75 69 Total Protein 7.0 6.5 Albumin 4.4 4.2 Triglycerides Cholesterol LDL Cholesterol, Calc HDL Cholesterol Urine Color Yellow Urine Appearance Clear Urine pH 5.5 Ur Specific Excell[place] 1.020 Urine Protein Negative Urine Glucose (UA) Negative Urine Ketones Negative Urine Blood Negative Urine Nitrite Negative Ur Leukocyte Esterase Negative Urine Opiates Screen Not Detected Ur Buprenorphine Scrn Not Detected Ur Oxycodone Screen Not Detected Urine Methadone Screen Not Detected Urine Fentanyl Screen Not Detected Ur Barbiturates Screen Not Detected Ur Phencyclidine Scrn Not Detected Ur Amphetamines Screen Not Detected U Benzodiazepines Scrn Not Detected Urine Cocaine Screen Not Detected U Marijuana (THC) Screen Not Detected Ethyl Alcohol < 10 03/19/24 08:40 WBC RBC Hgb Hct MCV MCH MCHC RDW Plt Count MPV Immature Gran % (Auto) Neut % (Auto) Lymph % (Auto) [place] % (Auto) Eos % (Auto) Baso % (Auto) Lymph # (Auto) [place] # (Auto) Eos # (Auto) Baso # (Auto) Abs Immat Gran (auto) Absolute Neuts (auto) Absolute Nucleated RBC Nucleated RBC % (auto) Sodium Potassium Chloride Carbon Dioxide Anion Gap BUN Creatinine Estim Creat Clear Calc Estimated GFR Random Glucose Calcium Total Bilirubin AST ALT Alkaline Phosphatase Total Protein Albumin Triglycerides 75 Cholesterol 135 LDL Cholesterol, Calc 75 HDL Cholesterol 45 Urine Color Urine Appearance Urine pH Ur Specific Excello Urine Protein Urine Glucose (UA) Urine Ketones Urine Blood Urine Nitrite Ur Leukocyte Esterase Urine Opiates Screen Ur Buprenorphine Scrn Ur Oxycodone Screen Urine Methadone Screen Urine Fentanyl Screen Ur Barbiturates Screen Ur Phencyclidine Scrn Ur Amphetamines Screen U Benzodiazepines Scrn Urine Cocaine Screen U Marijuana (THC) Screen Ethyl Alcohol Imaging Diagnostic Imaging Impressions Head CT 03/19/24 11:23 IMPRESSION: 1. No acute intracranial pathology. 2. Stable right parasagittal meningioma at the right parietal lobe. 3. Stable arachnoid cyst superior to the cerebellar vermis. Electronically signed by: Xavier Carlos MD 03/19/2024 03:26 PM [facility] [employer] DS: Summary Hospital Course Hospital Course: Psychiatry Admission Note (In) Signed Patient: Martir De La Paz I MR#: [id number] : 1950 Acct:[id number] Age/Sex: 73 / M Loc: [id number].PGERI 184-[address]: Trenton Foster MD cc: Akhil Epperson MD~ HPI Date of Service: 03/19/24 Chief Complaint: depression Sources of Information: patient interviewed, chart reviewed and crisis/core team assessment reviewed Additional Sources of Information: reviewed by neurology HPI Subjective Notes: Conditional Voluntary Narrative: Pt seen 10 am 03/19/24 The patient is a 73-year-old male with a long history of recurrent depression with mixed anxiety symptoms. The patient has been increasingly depressed and agitated over the past number of weeks and came to the hospital regarding consideration of ECT which has always helped him in the past in which she did complete a series last year. His psychiatrist is Dr. Lupillo vazquez. He has been prescribed Klonopin 0.5 t.i.d. and mirtazapine 30 mg a day. He has intermittently been given treatment with ketamine. Patient has been increasingly ruminating with thoughts that he would be better off periods of increased anxiety racing thoughts. Patient has been hospitalized multiple times throughout his life has been on the psychiatric unit at [place] a few times previously and has been treated generally in the past with ECT for which she had a good effect. Patient has a long history of no response to conventional antidepressant treatment. The patient also has been more anxious since he had a stent placed in his right coronary artery over the summer with no sequela no chest pain or shortness breath. The other coronary arteries were reportedly unremarkable Past Psychiatric History: hosps: reports several hospitalizations about 15 years ago, stating he has been inpatient at [facility], [facility], and [facility]. per DC summary in medical records, pt was inpatient at [facility] in 2011 and received ECT. SA: pt reports one attempt in his 20s and another in his 40s, via overdose and cutting. SIB: denies any Hx. not currently in outpatient Tx. does not wish to take medications but has found ECT very helpful. Medical Evaluation Reviewed: Yes no acute changes ekg unremarkable [facility] Medical History (Updated 03/18/24 @ 14:34 by Francisca Smith) Cervicalgia Chronic migraine without aura, intractable, without status migrainosus Routine medical exam Suicidal ideation Arachnoid cyst Meningioma History of electroconvulsive therapy Memory loss Depression Narrative: Right coronary stenting please see emergency room physician note Surgical History History of heart artery stent H/O eye surgery Family History: brother - completed suicide mother - severe depression Social History: lives in [place]. rents an apartment but has essentially been living with a platonic female friend recently, in her home that she owns. they share dogs at the home. has 1 son, 33 yo. . 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 states he has a law degree but does not practice. Trauma History: none reported Diagnostics Vital Signs (24Hr): Vital Signs - 24 hr 03/18/24 11:10 03/18/24 11:59 03/18/24 17:15 Temperature 97.6 F 96.8 F Pulse Rate 54 54 Respiratory Rate 18 16 18 Blood Pressure 125/78 135/76 Pulse Oximetry 98 99 Oxygen Delivery Method Room Air Room Air 03/18/24 20:00 03/18/24 20:25 03/19/24 07:50 Temperature 97.4 F 97.5 F Pulse Rate 62 62 65 Respiratory Rate 16 18 Blood Pressure 135/77 135/77 122/74 Pulse Oximetry 100 98 Oxygen Delivery Method Room Air Room Air BMI result Body Mass Index 20.0 Labs 03/18/24 12:09 document embedded image 03/18/24 18:20 document embedded image Labs: Laboratory Results - last 48 hr 03/18/24 03/18/24 03/18/24 12:09 13:51 18:20 WBC 6.8 RBC 4.63 Hgb 14.4 Hct 44.0 MCV 95.0 MCH 31.1 MCHC 32.7 RDW 13.1 Plt Count 185 MPV 9.4 Immature Gran % (Auto) 0.3 Neut % (Auto) 78.5 H Lymph % (Auto) 11.9 L [place] % (Auto) 8.7 Eos % (Auto) 0.3 Baso % (Auto) 0.3 Lymph # (Auto) 0.8 L [place] # (Auto) 0.6 Eos # (Auto) 0.0 Baso # (Auto) 0.0 Abs Immat Gran (auto) 0.02 Absolute Neuts (auto) 5.4 Absolute Nucleated RBC 0.000 Nucleated RBC % (auto) 0.0 Sodium 140 142 Potassium 4.3 3.9 Chloride 107 106 Carbon Dioxide 28 28 Anion Gap 9 L 12 BUN 19 H 22 H Creatinine 0.84 1.18 Estim Creat Clear Calc 73.6 52.4 Estimated GFR > 60 > 60 Random Glucose 102 123 H Calcium 9.2 9.4 Total Bilirubin 0.8 0.6 AST 27 26 ALT 38 32 Alkaline Phosphatase 75 69 Total Protein 7.0 6.5 Albumin 4.4 4.2 Urine Color Yellow Urine Appearance Clear Urine pH 5.5 Ur Specific Excell[place] 1.020 Urine Protein Negative Urine Glucose (UA) Negative Urine Ketones Negative Urine Blood Negative Urine Nitrite Negative Ur Leukocyte Esterase Negative Urine Opiates Screen Not Detected Ur Buprenorphine Scrn Not Detected Ur Oxycodone Screen Not Detected Urine Methadone Screen Not Detected Urine Fentanyl Screen Not Detected Ur Barbiturates Screen Not Detected Ur Phencyclidine Scrn Not Detected Ur Amphetamines Screen Not Detected U Benzodiazepines Scrn Not Detected Urine Cocaine Screen Not Detected U Marijuana (THC) Screen Not Detected Ethyl Alcohol < 10 Meds/Allergies Meds Home Medications Medication Instructions Recorded Confirmed Type aspirin 81 mg tablet,delayed 81 mg PO DAILY 12/18/23 03/18/24 History release atorvastatin 80 mg tablet 80 mg PO DAILY 12/18/23 03/18/24 History cholecalciferol (vitamin D3) 25 25 mcg PO DAILY 12/20/23 03/18/24 History mcg (1,000 unit) capsule mecobalamin (vitamin B12) 1,000 1,000 mcg PO DAILY 12/20/23 03/18/24 History mcg lozenges aripiprazole 5 mg tablet 5 mg PO DAILY 03/18/24 03/18/24 History clonazepam 0.5 mg tablet 1 tab PO TID PRN anxiety 03/18/24 03/18/24 History clonidine HCl 0.1 mg tablet 0.1 mg PO TID PRN Anxiety 03/18/24 03/18/24 History lurasidone 40 mg tablet 40 mg PO DAILY 03/18/24 03/18/24 History metoprolol tartrate 25 mg tablet 25 mg PO BID 03/18/24 03/18/24 History mirtazapine 30 mg tablet 30 mg PO BEDTIME 03/18/24 03/18/24 History ticagrelor 90 mg tablet (Brilinta) 90 mg PO BID 03/18/24 03/18/24 History Allergies Allergies Allergy/AdvReac Type Severity Reaction Status Date / Time No Known Allergies Allergy Mild NKA Verified 03/18/24 11:14 Mental Status Exam Mental Status Exam Patient Appearance: Appropriate Patient Orientation: Person, Place, Time and Situation Level of Consciousness: Awake Patient Behavior: Talkative, Good Eye Contact and Pacing Mood Description: Depressed, Anxious and Apprehensive Affect Description: Depressed and Anxious Patient Cognition Impaired: Yes Ability to Follow Directions: Good Speech Pattern: Perseverating and Rapid Memory Description: Intact Hallucinations: None Delusions: Not Present Thought Process: Rumination Thought Content: positive for Perseveration Depressive Symptoms: Increased Anxiety, Insomnia, Thoughts of /Suicide and Difficulty Concentrating Abnormal Motor Activity Signs and Symptoms: Hyperactivity Judgement and Insight: Patient with some degree of racing thoughts agitation states he can maintain his safety at home he is somewhat desperate to have ECT understands medical clearance process in some increased risk with small meningioma Assessment & Plan Assessment & Plan (1) Major depressive disorder, recurrent severe without psychotic features: Status: Acute Code(s): F33.2 - Major depressive disorder, recurrent severe without psychotic features (2) Meningioma: Status: Acute Code(s): D32.9 - Benign neoplasm of meninges, unspecified (3) Chronic migraine without aura, intractable, without status migrainosus: Status: Acute Code(s): G43.719 - Chronic migraine without aura, intractable, without status migrainosus Plan The patient is a 73-year-old male with a long history of recurrent agitated depression question of mixed states who tends to have severe anxiety racing thoughts and severe difficulty and locks settings. Discussed with patient need to get head CT scan neuro consult prior to starting ECT. If patient tolerates 1st ECT would most likely benefit from discharge and continue as an outpatient. Will discuss case with outpatient psychiatrist Dr. Lupillo vazquez. Patient is scheduled for ECT tomorrow. Risk factor small meningioma tolerated treatment previously no change in size of meningioma discussed with patient some increase risk of intracranial pressure if have symptoms would need to remain hospitalized . Change Klonopin to lorazepam ECT hold night prior to ECT. Seroquel for racing thoughts anxiety impulsivity Question of sub syndrome will mixed states Patient educated on: diagnosis, medication risk/benefits and ECT Informed Consent: understands Reason for continued inpatient stay Substantial Risk for: inability to function and rapid decompensation Statement Statement: I have reviewed the history and physical and performed a pertinent examination on my patient. No changes have occurred unless specified. If the History and Physical was not performed prior to admission, the Hospitalist's service will be consulted for completing the admission physical. Pt seen 1030 am 03/19/24 Time Spent With Patient Time: Total time managing care of this patient today ____ minutes. Dictated By: Akhil Epperson MD Signed By: <Electronically signed by Akhil Epperson MD> 03/19/24 1744 DD/ 8 TD/TT: 03/19/24938 [employer] Maker: HOSPITAL COURSE Pt admitted on a conditional voluntary. Patient had quite significant anxiety and was started on low-dose Seroquel which he had been on previously. Clonazepam was changed to lorazepam shorter acting less interference with ECT. The patient was admitted with the intention of ECT which has always been effective for him in the past. He does have a small meningioma he was seen by Neurology in the did not feel there was contraindication. He had had stenting a number of months ago and his EKG in otherwise physical was unremarkable. The patient was medically evaluated by the hospitalist service and also by Neurology there was no significant contraindication they felt. Patient had tolerated ECT in the past with a small meningioma without difficulty. Patient has difficult time in locked inpatient settings . The patient did have 1 bifrontal treatment prior to discharge on March 20 which he tolerated well. Patient had a bifrontal treatment which he had responded well to in the past. Time of discharge the patient seem reassured that he was going to get ECT treatment which he notes has helped him well in the past his outpatient psychiatrist is Dr. boston he had not responded recently to ketamine treatments. Patient is scheduled her outpatient ECT follow-up Time spent discussing smoking cessation with patient: more than 10 minutes Status at Discharge Cognitive/behavioral status at discharge: Patient is somewhat anxious dysphoric but future oriented denies any active thoughts of self-harm he does tend to ruminate he is future oriented Functional status at discharge: independent ambulation Overall status at discharge: patient is not back to baseline Time Spent with Patient Time attestation: Total time managing care of this patient today _40___ minutes. Time spent: Greater than 30 minutes Discharge Plan Discharge Anticipated Discharge Date/Time: 03/20/24 14:10 Patient Disposition: Home, Self-Care Discharge Diagnosis: recurrent anxious depression epistaxis Referrals: Dr Vazquez [facility] [Other] - 03/25/24 3:30 pm (Your next appointment with Dr Vazquez is scheduled for 03/25/24 at 3:30PM) Marek Gustafson [facility] [Other] - 1 Week (Marek Haro will contact you with appointment follow up appointmnet after discharge. ) [facility] [Other] - 03/22/24 6:00 am (Your outpatient ECT sessions are scheduled for 03/22, 03/25, 03/27, 03/29, 04/01 and 04/05. Please arrive to short stay surgery department by 6am for each of these appointments. ) Dr Cira Oates [facility] [Other] - 03/27/24 11:20 am (Your next appointment with Dr. Denis is scheduled for 03/27/24 at 11:20PM) Discharge Medications: New quetiapine 25 mg Tablet 25 mg PO Q6H PRN (Reason: agitation) 30 Days Qty: 45 0RF Rx Instructions: max 3 x day lorazepam 0.5 mg Tablet 0.5 mg PO TID PRN (Reason: Anxiety) 15 Days Qty: 45 0RF Continued aspirin 81 mg tablet,delayed release (DR/EC) 81 mg PO DAILY atorvastatin 80 mg tablet 80 mg PO DAILY clonidine HCl 0.1 mg Tablet 0.1 mg PO TID PRN (Reason: Anxiety) metoprolol tartrate 25 mg Tablet 25 mg PO BID Brilinta 90 mg Tablet 90 mg PO BID mirtazapine 30 mg Tablet 30 mg PO BEDTIME Qty: 1 0RF Rx Instructions: take half tab bedtime mecobalamin (vitamin B12) 1,000 mcg lozenge 1,000 mcg PO DAILY Rx Instructions: allow to dissolve in mouth OR may chew lightly before swallowing cholecalciferol (vitamin D3) 25 mcg (1,000 unit) capsule 25 mcg PO DAILY Discontinued clonazepam 0.5 mg tablet 1 tab PO TID PRN (Reason: anxiety) aripiprazole 5 mg Tablet 5 mg PO DAILY lurasidone 40 mg Tablet 40 mg PO DAILY Rx Instructions: must administer with food (at least 350 calories) No Action Aimovig Autoinjector 140 mg/mL auto-injector 140 mg subcut ONCE 30 Days Qty: 1 6RF Discharge Orders: Discharge Order (Routine); Ordered 03/20/24 Ordered By: Akhil Epperson Diet: Advance to usual diet Activity on Discharge: As tolerated Stand Alone Forms: Patient Portal Discharge page Print Language: Yakut Care Plan Goals: decrease anxiety and depressive sx no si Health Concerns: coronary artery stent small meningioma epistaxis Plan of Treatment: ect lorazepam quetiapine may take qutiapine with sip water prior to leaving home for ect take metoprolol with sip of water at home prior to ect f/u with dr vazquez and marek miner [facility] call [phone] if feeling suicidal or go to er next ect 03/22/24 Assessment: stable mood less anxious future oriented no si Discharge Date/Time: 03/20/24 15:19
== END 2024-03-20 15:19 | disposition home or self-care (01) | DRG 885 ==
LOC: HO.ED 14:34 → HO.PGERI 14:35
PROVIDERS: Psychiatry & Neurology Psychiatry; Admitting Provider Psychiatry & Neurology Psychiatry; Emergency Provider Emergency Medicine Emergency Medical Services; Visit Provider Psychiatry & Neurology Psychiatry
PROC: GZB4ZZZ Other Electroconvulsive Therapy (ICD-10-PCS; CPT 90870; principal; 2024-03-20 07:30)
DX: F33.2 Major depressive disorder, recurrent severe without psychotic features (principal); G93.0 Cerebral cysts; D32.9 Benign neoplasm of meninges, unspecified; I25.10 Atherosclerotic heart disease of native coronary artery without angina pectoris; Z95.5 Presence of coronary angioplasty implant and graft; Z79.82 Long term (current) use of aspirin; Z79.899 Other long term (current) drug therapy
CPT/HCPCS: 36415; 70450; 80053; 80061; 80307; 81003; 85025; 90870; 93005; 99285; J0330; J1885; J2250; J2405; J2704; J7120

== ENCOUNTER → 2024-03-18 13:01 | Outpatient (BNV) | payer MEDICARE, SELFPAY | PROVIDERS: Admitting Provider Psychiatry & Neurology Psychiatry; Emergency Provider Emergency Medicine Emergency Medical Services; Visit Provider Internal Medicine Cardiovascular Disease | DX: I45.81 Long QT syndrome (principal) | CPT/HCPCS: 93010 ==

== ENCOUNTER 2024-03-18 14:30 | Outpatient (BNV) | payer MEDICARE, SELFPAY | END 2024-03-19 09:39 | PROVIDERS: Admitting Provider Psychiatry & Neurology Psychiatry; Emergency Provider Emergency Medicine Emergency Medical Services; Visit Provider Internal Medicine Cardiovascular Disease | DX: R00.1 Bradycardia, unspecified (principal) | CPT/HCPCS: 93010 ==

== ENCOUNTER → 2024-03-18 14:30 | Outpatient (BNV) | payer MEDICARE, SELFPAY | PROVIDERS: Admitting Provider Psychiatry & Neurology Psychiatry; Emergency Provider Emergency Medicine Emergency Medical Services; Visit Provider Internal Medicine | DX: Z01.818 Encounter for other preprocedural examination (principal); F32.2 Major depressive disorder, single episode, severe without psychotic features | CPT/HCPCS: 99429; 99499 ==

== ENCOUNTER → 2024-03-18 14:30 | Outpatient (BNV) | payer MEDICARE, SELFPAY | PROVIDERS: Admitting Provider Psychiatry & Neurology Psychiatry; Emergency Provider Emergency Medicine Emergency Medical Services; Visit Provider Psychiatry & Neurology Neurology | DX: G93.0 Cerebral cysts (principal); D32.9 Benign neoplasm of meninges, unspecified; F32.A Depression, unspecified | CPT/HCPCS: 99222 ==

== ENCOUNTER → 2024-03-18 14:30 | Outpatient (BNV) | payer MEDICARE, SELFPAY ==
--- NOTE | 2024-03-20 11:17 | A.OFFPSYCH_ITS ---
Intake Intake Visit Reasons: depression Allergies No Known Allergies Allergy (Mild, Verified 03/20/24 09:26) NKA HPI- Psychiatric Chief Complaint: depression HPI Past Psychiatric History: hosps: reports several hospitalizations about 15 years ago, stating he has been inpatient at [facility], [facility], and [facility]. per DC summary in medical records, pt was inpatient at [facility] in 2011 and received ECT. SA: pt reports one attempt in his 20s and another in his 40s, via overdose and cutting. SIB: denies any Hx. not currently in outpatient Tx. does not wish to take medications but has found ECT very helpful. Assessment and Plan Counseling and coordination of Care Details: I spent [] minutes reviewing the record, seeing the patient and documenting in the medical record. Counseling provided to the patient/caregiver as outlined below. Addressed patient/caregiver concerns regarding current medication regime including effective adherence. Addressed patient/caregiver concerns regarding diagnosis and prognosis including accuracy of diagnosis, prognosis over time, impact of diagnosis. Addressed patient/caregiver concerns regarding impact of recent stressors. [facility] Medical History Cervicalgia Chronic migraine without aura, intractable, without status migrainosus Routine medical exam Suicidal ideation Arachnoid cyst Meningioma History of electroconvulsive therapy Memory loss Depression Surgical History History of heart artery stent H/O eye surgery Social History Household Members: Other Household Members Other:: house mates Housing: Apartment Alcohol intake: unknown Patient Tobacco Use Status: Never used Tobacco Advance Directives: No Advance Directives Information Provided: Yes service: No Sexual orientation: Don't Know Social History: lives in [place]. rents an apartment but has essentially been living with a platonic female friend recently, in her home that she owns. they share dogs at the home. has 1 son, 33 yo. . 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 states he has a law degree but does not practice. Substance History: cocaine - reports h/o use, last about 10 years ago (coinciding with his most recent [facility] hospitalization). tobacco - denies alcohol - denies cannabis - i hate that. denies use of other substances of abuse. Trauma History: none reported Coding
== END ==
PROVIDERS: Admitting Provider Psychiatry & Neurology Psychiatry; Emergency Provider Emergency Medicine Emergency Medical Services; Visit Provider Psychiatry & Neurology Psychiatry
DX: F33.2 Major depressive disorder, recurrent severe without psychotic features (principal); D32.9 Benign neoplasm of meninges, unspecified; G43.719 Chronic migraine without aura, intractable, without status migrainosus
CPT/HCPCS: 90792

== ENCOUNTER 2024-03-20 09:18 | Emergency (ER) | payer MEDICARE, SELFPAY ==
[2024-03-20 09:25] VITALS: BP 134/71; PULSE 61; RESP 18; TEMP 36.1; O2SAT 97; BMI 20.3
[2024-03-20 10:24] LABS: MANUAL DIFF FLAG NO
[2024-03-20 10:25] LABS: Basophils Percent Auto 0.3 % (0-2); Eosinophils Percent Auto 0.3 % (0-4); Hematocrit 38.9 % (42.0-52.0); Hemoglobin 13.1 g/dl (14.0-18.0); Imm Gran Abs Auto 0.01 X10*3/uL (0.00-0.03); Imm Gran Pct Auto 0.3 % (0.0-0.4); Lymphocytes Absolute Auto 0.6 X10*3/uL (1.2-4.9); Mean Corpuscular HGB Conc 33.7 g/dl (31.0-36.0); Mean Corpuscular Hemoglobin 31.6 pg (27.0-33.0); Mean Platelet Volume 9.3 fL (9.4-12.4); Monocytes Absolute Auto 0.2 X10*3/uL (0.1-1.2); Monocytes Percent Auto 6.3 % (2-11); Neutrophils Absolute Auto 2.9 x10*3/uL (2.0-8.3); Neutrophils Percent Auto 76.8 % (45-73); Platelet Count 157 X10*3/uL (160-400); Red Blood Count 4.14 X10*6/uL (4.60-5.80); Red Cell Distribution Width 12.9 % (11.0-16.0); White Blood Count 3.8 X10*3/uL (4.8-10.8)
[2024-03-20 10:32] LABS: INTERNATIONAL NORM RATIO 1.1 (0.9-1.1); Prothrombin Time 12.8 SEC (10.9-12.4)
[2024-03-20 10:37] LABS: Anion Gap 12 (12-20); Blood Urea Nitrogen 16 mg/dL (9-16); Calcium 8.9 mg/dL (8.4-10.2); Carbon Dioxide 26 mmol/L (22-29); Chloride 108 mmol/L (96-108); Creatinine Clr Calc Pharmacy 66.1; Estimated Glomerular Filt Rate > 60; Glucose Random 106 mg/dL (60-115); Potassium 4.6 mmol/L (3.3-5.1); Sodium 141 mmol/L (135-145)
--- NOTE | 2024-03-20 10:39 | ED_ITS ---
HPI - General Adult General Chief complaint: Epistaxis Stated complaint: Nose bleed Time Seen by Provider: 03/20/24 10:38 History of Present Illness ED Provider: Janet LUCIA narrative: The patient is a 73-year-old male who was currently an inpatient on the psychiatric unit. He has been receiving ECT for depression. He also has a history coronary disease and is on aspirin and ticagrelor. He reports that he has had a history of nosebleeds and has been seen at [facility] in the past for nosebleeds. Today he developed a nosebleed after an ECT treatment. He was brought to the emergency room for evaluation. There has been no injury. No fever, sweats, chills. Related Data Home Medications ?Medication ?Instructions ?Recorded ?Confirmed aspirin 81 mg tablet,delayed 81 mg PO DAILY 12/18/23 03/18/24 release atorvastatin 80 mg tablet 80 mg PO DAILY 12/18/23 03/18/24 cholecalciferol (vitamin D3) 25 25 mcg PO DAILY 12/20/23 03/18/24 mcg (1,000 unit) capsule mecobalamin (vitamin B12) 1,000 1,000 mcg PO DAILY 12/20/23 03/18/24 mcg lozenges clonidine HCl 0.1 mg tablet 0.1 mg PO TID PRN Anxiety 03/18/24 03/18/24 metoprolol tartrate 25 mg tablet 25 mg PO BID 03/18/24 03/18/24 ticagrelor 90 mg tablet (Brilinta) 90 mg PO BID 03/18/24 03/18/24 Previous Rx's ?Medication ?Instructions ?Recorded lorazepam 0.5 mg tablet 0.5 mg PO TID PRN Anxiety 15 days 03/20/24 #45 tabs mirtazapine 30 mg tablet 30 mg PO BEDTIME #1 tab 03/20/24 quetiapine 25 mg tablet 25 mg PO Q6H PRN agitation 30 days 03/20/24 #45 tabs Allergies Allergy/AdvReac Type Severity Reaction Status Date / Time No Known Allergies Allergy Mild NKA Verified 03/20/24 09:26 Review of Systems 2 Review of Systems: Yes all other systems are reviewed and are negative PMFSH Past Medical History Medical History Cervicalgia Chronic migraine without aura, intractable, without status migrainosus Routine medical exam Suicidal ideation Arachnoid cyst Meningioma History of electroconvulsive therapy Memory loss Depression Surgical History History of heart artery stent H/O eye surgery Social History Social History Household Members: Other Household Members Other:: house mates Housing: Apartment Alcohol intake: unknown Patient Tobacco Use Status: Never used Tobacco service: No Sexual orientation: Don't Know Physical Exam ED Vital Signs: Vital Signs - 24 hr 03/20/24 13:00 Pulse Rate 72 Respiratory Rate 18 Pulse Oximetry 98 Oxygen Delivery Method Room Air BMI result Body Mass Index 20.3 Const Other: the patient is a slim 73-year-old who was having obvious nose bleed. He has an anxious affect. He does not seem in acute distress otherwise. HENMT Other: The face is symmetrical. There were blood clots in the nostrils, mostly on the right side. After clearing the nostrils of blood clots was apparent there was some bleeding from the right nasal septum fairly far back. Eyes General: appearance normal, both eyes and all related structures Neck Neck: Yes full ROM Resp Effort & Inspection: normal respiratory effort Auscultation: clear to auscultation bilaterally Cardio Rate: regular rate Rhythm: regular rhythm Heart sounds: S1 normal heart sound present and S2 normal heart sound present Skin Other: skin is dry and unremarkable Neuro Other: the patient is awake and alert with normal mental status. Cranial nerves 2-12 are intact. He moves his extremities normally. His gait is normal. Extrem Other: No peripheral edema. Medications Administered Discontinued Medications Generic Name Dose Route Start Last Admin Trade Name Freq PRN Reason Stop Dose Admin Cocaine HCl 4 ml 03/20/24 10:53 03/20/24 11:22 Cocaine Hcl 4 % 4 Ml Solution TOPICAL 03/20/24 10:54 4 ml ONCE ONE Administration Protocol Lorazepam 1 mg 03/20/24 12:02 03/20/24 12:14 Lorazepam 1 Mg Tablet PO 03/20/24 12:03 1 mg ONCE ONE Administration Oxymetazoline HCl 2 spray 03/20/24 10:39 03/20/24 10:49 Oxymetazoline Hcl 0.05 % Nasal 15 Ml [place] NOSTRIL-B 03/20/24 10:40 2 spray ONCE ONE Administration Procedures Epistaxis Control Nostril: Yes right Nose prepped with: Yes cocaine 4% and Yes oxymetazoline Direct inspection: Yes anterior source identified Direct inspection method: Yes nasal speculum and Yes headlamp Clots removed by: Yes blowing nose Epistaxis treatment: Yes silver nitrate cautery Results of treatment: Yes bleeding controlled Complications: Yes none Medical Decision Making Medical Decision Making [facility] Narrative: the patient is an 73-year-old male who is currently a patient of the psychiatric floor who has been receiving ECT treatments. He has a history of coronary disease and is on aspirin and ticagrelor. He presents with a spontaneous nose bleed from the right nostril. He has had previous nose bleeds treated at [facility]. Patient was asked to blow his nose to clear the nostrils of clots. We then administered several sprays of oxymetazoline in both nostrils. The nasal clip was applied. Subsequently I inserted a cotton ball soaked with 4% cocaine in the right nostril. After this I performed cautery using silver nitrate sticks. I had to use several silver nitrate sticks but ultimately was able to cauterize all the areas of bleeding and stop the bleeding. The patient was observed for about half an hour with no recurrence of bleeding. At that point I felt he could return to the psychiatric floor. He is advised to avoid hot beverages for the next several days and to follow-up with ENT. Lab Data 03/20/24 10:19 03/20/24 10:19 Labs: Lab Results 03/20/24 Range/Units 10:19 WBC 3.8 L (4.8-10.8) X10*3/uL RBC 4.14 L (4.60-5.80) X10*6/uL Hgb 13.1 L (14.0-18.0) g/dl Hct 38.9 L (42.0-52.0) % MCV 94.0 (80.0-98.0) fL MCH 31.6 (27.0-33.0) pg MCHC 33.7 (31.0-36.0) g/dl RDW 12.9 (11.0-16.0) % Plt Count 157 L (160-400) X10*3/uL MPV 9.3 L (9.4-12.4) fL Immature Gran % (Auto) 0.3 (0.0-0.4) % Neut % (Auto) 76.8 H (45-73) % Lymph % (Auto) 16.0 L (20-40) % [place] % (Auto) 6.3 (2-11) % Eos % (Auto) 0.3 (0-4) % Baso % (Auto) 0.3 (0-2) % Lymph # (Auto) 0.6 L (1.2-4.9) X10*3/uL [place] # (Auto) 0.2 (0.1-1.2) X10*3/uL Eos # (Auto) 0.0 (0.0-0.4) X10*3/uL Baso # (Auto) 0.0 (0.0-0.2) X10*3/uL Abs Immat Gran (auto) 0.01 (0.00-0.03) X10*3/uL Absolute Neuts (auto) 2.9 (2.0-8.3) x10*3/uL Absolute Nucleated RBC 0.000 (0.0-0.012) X10*3/uL Nucleated RBC % (auto) 0.0 (0.0-0.2) /100WBC PT 12.8 H (10.9-12.4) SEC INR 1.1 (0.9-1.1) Sodium 141 (135-145) mmol/L Potassium 4.6 (3.3-5.1) mmol/L Chloride 108 (96-108) mmol/L Carbon Dioxide 26 (22-29) mmol/L Anion Gap 12 (12-20) BUN 16 (9-16) mg/dL Creatinine 0.93 (0.5-1.4) mg/dL Estim Creat Clear Calc 66.1 Estimated GFR > 60 Random Glucose 106 (60-115) mg/dL Calcium 8.9 (8.4-10.2) mg/dL Discharge Plan Discharge Clinical Impression: Acute anterior epistaxis Patient Disposition: Xfer Psychiatric Hosp Transfer Details: BACK TO S1 INPT Instructions: Nosebleed (ED) Additional Instructions: Please avoid hot beverages for the next several days. Using a humidifier if you can can be helpful. It would be good for you to follow up with an ENT doctor. You have been given some contact information for ENT doctors. Return to the emergency room if significantly worse. Prescriptions: No Action aspirin 81 mg tablet,delayed release (DR/EC) 81 mg PO DAILY atorvastatin 80 mg tablet 80 mg PO DAILY clonidine HCl 0.1 mg Tablet 0.1 mg PO TID PRN (Reason: Anxiety) metoprolol tartrate 25 mg Tablet 25 mg PO BID Brilinta 90 mg Tablet 90 mg PO BID quetiapine 25 mg Tablet 25 mg PO Q6H PRN (Reason: agitation) 30 Days Qty: 45 0RF Rx Instructions: max 3 x day lorazepam 0.5 mg Tablet 0.5 mg PO TID PRN (Reason: Anxiety) 15 Days Qty: 45 0RF mirtazapine 30 mg Tablet 30 mg PO BEDTIME Qty: 1 0RF Rx Instructions: take half tab bedtime mecobalamin (vitamin B12) 1,000 mcg lozenge 1,000 mcg PO DAILY Rx Instructions: allow to dissolve in mouth OR may chew lightly before swallowing cholecalciferol (vitamin D3) 25 mcg (1,000 unit) capsule 25 mcg PO DAILY Referrals: [facility] [Outside] (noresbleed) Mal Martinez [Physician] - (nosebleed) Discharge Date/Time: 03/20/24 14:28 Print Language: [place]
[2024-03-20] MEDS: Oxymetazoline HCl 0.05 % Nasal 15 ML SPRAY 2 SPRAY NOSTRIL-B (10:49)
[2024-03-20] MEDS: Cocaine HCl 4 % 4 ML SOLUTION TOPICAL (11:22)
[2024-03-20] MEDS: LORazepam 1 MG TABLET PO (12:14)
[2024-03-20 13:00] VITALS: PULSE 72; RESP 18; O2SAT 98
== END 2024-03-20 14:28 ==
PROVIDERS: Emergency Provider Emergency Medicine
DX: R04.0 Epistaxis (principal); Z79.82 Long term (current) use of aspirin; Z79.02 Long term (current) use of antithrombotics/antiplatelets; Z79.899 Other long term (current) drug therapy
CPT/HCPCS: 30901; 36415; 80048; 85025; 85610; 99283; 99284; C9143

== ENCOUNTER 2024-03-22 05:59 | Day surgery (SDC) | payer MEDICARE, SELFPAY ==
[2024-03-22] VITALS (8 sets, daily range): BP systolic 96–138; BP diastolic 64–82; PULSE 52–61; RESP 16–18; TEMP 36.1–37; O2SAT 97–100; BMI 19.5
--- NOTE | 2024-03-22 07:04 | MHC.SHP ---
Pre-Procedural Eval Section A - 24 Hr Update-Section A only Date of Service: 03/22/24 The patient is an INPATIENT: No Changes since office visit: Yes Changes in Medication and Yes Patient answered all questions; No Cold of Flu in the past 2 weeks and No New Medical Problems Section B - Complete if H&P > 30 days Chief Complaint: depression Details of Present Illness: recurrent depression Present Medications: see Short Stay Collaborative assessment Medical History: Significant History (meningioma) Allergies: Allergies Allergy/AdvReac Type Severity Reaction Status Date / Time No Known Allergies Allergy Mild NKA Verified 03/20/24 09:26 Review of Systems Sugical H&P ROS: Negative: Constitution, Cardiovascular, Respiratory, Neurological and Eyes/Ears/Nose/Throat (no epistaxis) and Yes, Specify: Psychiatric (depressed anxious) Exam Surgical H&P Exam: Normal: Heart, Normal: Lungs and Normal: Neurological Plan Diagnosis/Plan: Unchanged I have reviewed the history and physical and performed a pertinent physical examination on my patient. No changes have occurred unless specified. Time Spent With Patient Time: Total time managing care of this patient today ____ minutes.
--- NOTE | 2024-03-22 07:06 | HO.ECTPROC ---
ECT Procedure Note Diagnosis/Treatment Date of Service: 03/22/24 Diagnosis: Major Depressive Disorder Current Treatment Number: 2 Treatment: Series Interval Clinical Notes: Pt doing ok post d/c seems helped by charleyoquel tolerated 1 st ect completed BF as per prior tx which was helpful Time: Total time managing care of this patient today ____ minutes. ECT Settings Device: THYMATRON DGx Electrode Placement: Bifrontal Program/Pulse Width: 0.25 Energy Percent: 100 Seizure Duration By EEG (in seconds): 61 Medications Administration General Anesthetic: Etomidate (16) Muscle Relaxant: Succinylcholine (100) Ancillary Medications Analgesics: Torodol - Post ECT Miscillaneous Medications: Midazolam (2) Airway Management Airway Management: Bag Mask Ventilation Treatment Recommendations Notes: cont tx series
--- NOTE | 2024-03-22 07:15 | HO.ANESPROP2 ---
HPI - Anesthesia Eval Consult details Narrative: 73yo male patient for ECT PMFSH Active Problems Active Problems: All Active Problems Preprocedural examination (Acute) Depression (Acute) Cervicalgia (Acute) Chronic migraine without aura, intractable, without status migrainosus (Acute) Status post cardiac surgery (Acute) New onset headache (Acute) Major depressive disorder, recurrent severe without psychotic features (Acute) Migraine (Acute) Arachnoid cyst (Acute) Meningioma (Acute) Past Medical History Medical History Cervicalgia Chronic migraine without aura, intractable, without status migrainosus Routine medical exam Suicidal ideation Arachnoid cyst Meningioma History of electroconvulsive therapy Memory loss Depression Family History Family history of problems with anesthesia: No Surgical History Surgical History History of heart artery stent H/O eye surgery History of Problems with Anesthesia: No (Bleeding from nose post last ECT necessitating ER visit. Requests no nasal cannula ) Social History Social History Household Members: Other Household Members Other:: house mates Housing: Apartment Alcohol intake: unknown Patient Tobacco Use Status: Never used Tobacco service: No Sexual orientation: Don't Know Meds Allergies Allergy/AdvReac Type Severity Reaction Status Date / Time No Known Allergies Allergy Mild NKA Verified 03/20/24 09:26 Home Medications ?Medication ?Instructions ?Recorded ?Confirmed ?Last Taken ?Type aspirin 81 mg tablet,delayed 81 mg PO DAILY 12/18/23 03/18/24 03/18/24 History release atorvastatin 80 mg tablet 80 mg PO DAILY 12/18/23 03/18/24 03/18/24 History cholecalciferol (vitamin D3) 25 25 mcg PO DAILY 12/20/23 03/18/24 03/18/24 History mcg (1,000 unit) capsule mecobalamin (vitamin B12) 1,000 1,000 mcg PO DAILY 12/20/23 03/18/24 03/18/24 History mcg lozenges clonidine HCl 0.1 mg tablet 0.1 mg PO TID PRN Anxiety 03/18/24 03/18/24 03/18/24 History metoprolol tartrate 25 mg tablet 25 mg PO BID 03/18/24 03/18/24 03/18/24 History ticagrelor 90 mg tablet (Brilinta) 90 mg PO BID 03/18/24 03/18/24 03/18/24 History Exam Height,Weight and Vital Signs: Height 5 ft 11 in Weight 63.503 kg Vital Signs Temp Pulse Resp BP Pulse Ox O2 Del Method 97 F 52 18 122/71 97 Room Air 03/22/24 07:15 03/22/24 07:15 03/22/24 07:15 03/22/24 07:15 03/22/24 07:15 03/22/24 07:15 Airway Mallampati Class: II TM Dist: >3cm Neck ROM: Full Loose/Missing/Broken Teeth: No Heart: RRR Lungs: CTAB Assessment and Plan Assessment Anesthesia Assessment: Anesthesia Plan Discussed and Chart Reviewed Final Anesthetic Review Family History of Problems with Anesthesia: No History of Problems with Anesthesia: No (Bleeding from nose post last ECT necessitating ER visit. Requests no nasal cannula ) NPO: Yes ASA Class: III Final Preanesthetic Review: No Changes in Pt Med Stat, Meds/Allgs Chart Reviewed, Consent Obtained/Reviewed and Anes Risks/Benef Reviewed Patient Risk: Intermediate Procedure Risk: Intermediate Assessment/Block/Sedation in SS: Assess/Block/Sedation-SS Anesthetic Plan Anesthetic Plan: GA Disposition: Standard PACU
[2024-03-22] MEDS: Acetaminophen 325 MG TABLET 650 MG PO (09:11)
[2024-03-22] MEDS: oxyCODONE HCl Immed Release 5 MG TABLET 2.5 MG PO (09:12)
== END 2024-03-22 09:50 | disposition home or self-care (01) ==
PROVIDERS: Visit Provider Psychiatry & Neurology Psychiatry
PROC: (CPT 90870; principal; 2024-03-22 08:00)
DX: F33.2 Major depressive disorder, recurrent severe without psychotic features (principal); G43.719 Chronic migraine without aura, intractable, without status migrainosus; D32.9 Benign neoplasm of meninges, unspecified; G93.0 Cerebral cysts; R41.3 Other amnesia; R45.851 Suicidal ideations; Z79.899 Other long term (current) drug therapy; Z79.82 Long term (current) use of aspirin; Z79.01 Long term (current) use of anticoagulants; Z95.5 Presence of coronary angioplasty implant and graft
CPT/HCPCS: 90870; J0330; J1805; J1920; J2250; J2405; J2704

== ENCOUNTER → 2024-03-22 05:59 | Outpatient (BNV) | payer MEDICARE, SELFPAY | PROVIDERS: Visit Provider Psychiatry & Neurology Psychiatry | DX: F33.3 Major depressive disorder, recurrent, severe with psychotic symptoms (principal) | CPT/HCPCS: 90870 ==

== ENCOUNTER 2024-03-25 06:02 | Day surgery (SDC) | payer MEDICARE, SELFPAY ==
[2024-03-25 06:20] VITALS: BMI 19.5
[2024-03-25 06:47] VITALS: BP 120/75; PULSE 54; RESP 16; TEMP 36.4; O2SAT 98
--- NOTE | 2024-03-25 06:48 | P.CONAN_ITS ---
FORMERLY [facility] Active Problems Active Problems: All Active Problems Preprocedural examination (Acute) Depression (Acute) Cervicalgia (Acute) Chronic migraine without aura, intractable, without status migrainosus (Acute) Status post cardiac surgery (Acute) New onset headache (Acute) Major depressive disorder, recurrent severe without psychotic features (Acute) Migraine (Acute) Arachnoid cyst (Acute) Meningioma (Acute) Past Medical History Medical History Cervicalgia Chronic migraine without aura, intractable, without status migrainosus Routine medical exam Suicidal ideation Arachnoid cyst Meningioma History of electroconvulsive therapy Memory loss Depression Family History Family history of problems with anesthesia: No Surgical History Surgical History History of heart artery stent H/O eye surgery History of Problems with Anesthesia: No (Bleeding from nose post last ECT necessitating ER visit. Requests no nasal cannula ) Social History Social History Household Members: Other Household Members Other:: house mates Housing: Apartment Alcohol intake: unknown Patient Tobacco Use Status: Never used Tobacco Advance Directives: No Advance Directives Information Provided: Yes service: No Sexual orientation: Don't Know Meds Allergies Allergy/AdvReac Type Severity Reaction Status Date / Time No Known Allergies Allergy Mild NKA Verified 03/20/24 09:26 Home Medications ?Medication ?Instructions ?Recorded ?Confirmed ?Last Taken ?Type aspirin 81 mg tablet,delayed 81 mg PO DAILY 12/18/23 03/18/24 03/18/24 History release atorvastatin 80 mg tablet 80 mg PO DAILY 12/18/23 03/18/24 03/18/24 History cholecalciferol (vitamin D3) 25 25 mcg PO DAILY 12/20/23 03/18/24 03/18/24 History mcg (1,000 unit) capsule mecobalamin (vitamin B12) 1,000 1,000 mcg PO DAILY 12/20/23 03/18/24 03/18/24 History mcg lozenges clonidine HCl 0.1 mg tablet 0.1 mg PO TID PRN Anxiety 03/18/24 03/18/24 03/18/24 History metoprolol tartrate 25 mg tablet 25 mg PO BID 1203/18/24 03/18/24 History ticagrelor 90 mg tablet (Brilinta) 90 mg PO BID 03/18/24 03/18/24 03/18/24 History Exam Height,Weight and Vital Signs: Height 5 ft 11 in Weight 63.503 kg Airway Mallampati Class: II TM Dist: >3cm Neck ROM: Full Heart: rrr Lungs: cta Assessment and Plan Assessment Anesthesia Assessment: Anesthesia Plan Discussed and Chart Reviewed Final Anesthetic Review Family History of Problems with Anesthesia: No History of Problems with Anesthesia: No (Bleeding from nose post last ECT necessitating ER visit. Requests no nasal cannula ) NPO: Yes ASA Class: III Final Preanesthetic Review: No Changes in Pt Med Stat, Meds/Allgs Chart Reviewed and Consent Obtained/Reviewed Patient Risk: Intermediate Procedure Risk: Intermediate Anesthetic Plan Anesthetic Plan: GA Disposition: Standard PACU
--- NOTE | 2024-03-25 06:56 | MHC.SHP ---
Pre-Procedural Eval Section A - 24 Hr Update-Section A only Date of Service: 03/25/24 The patient is an INPATIENT: No Changes since office visit: Yes Cold of Flu in the past 2 weeks, Yes New Medical Problems, Yes Changes in Medication and Yes Patient answered all questions The patient has been examined within 24 hours of the surgical procedure. The History & Physical has been completed within 30 days and I have reviewed it.: Yes Section B - Complete if H&P > 30 days Chief Complaint: depression Allergies: Allergies Allergy/AdvReac Type Severity Reaction Status Date / Time No Known Allergies Allergy Mild NKA Verified 03/20/24 09:26 Plan I have reviewed the history and physical and performed a pertinent physical examination on my patient. No changes have occurred unless specified. Time Spent With Patient Time: Total time managing care of this patient today ____ minutes.
[2024-03-25] MEDS: Lactated Ringers 1,000 ML 50 ML IVCONT (07:03)
--- NOTE | 2024-03-25 07:16 | HO.ECTPROC ---
ECT Procedure Note Diagnosis/Treatment Date of Service: 03/25/24 Diagnosis: Major Depressive Disorder Previous ECT Date: 03/22/24 Current Treatment Number: 3 Treatment: Series Interval Clinical Notes: The patient reported some dysphoria. On the last ECT, he had a nose bleed that requiered to go to the ED. He usually has nose bleeds frequently. Reported headache and possible, he took opioids, unclear. ECT done as usual bitemperal at 0.25 100%. He had a long seizure that resolved by itself. Probably, he could have a lower stimuli next time. No complications, woke up well. Time: Total time managing care of this patient today ____ minutes. ECT Settings Device: THYMATRON DGx Electrode Placement: Bifrontal Program/Pulse Width: 0.25 Energy Percent: 100 Seizure Duration By EEG (in seconds): 81 By Motor Observation (in seconds): 45 Medications Administration General Anesthetic: Etomidate (16) Muscle Relaxant: Succinylcholine (100) Ancillary Medications Anti-emetics: Zofran - Pre ECT Miscillaneous Medications: Midazolam (2 mg post ECT) Airway Management Airway Management: Bag Mask Ventilation Treatment Recommendations Electrode Placement: Bitemporal Program/Pulse Width: 0.25 Energy Percent: 85 Pt Tolerated Procedure w/o Issue: Yes
[2024-03-25 07:21] VITALS: BP 114/69; PULSE 53; RESP 16; TEMP 36.8; O2SAT 100
[2024-03-25 07:26] VITALS: BP 128/77; PULSE 66; RESP 18; O2SAT 99
[2024-03-25 07:31] VITALS: BP 127/96; PULSE 60; RESP 18; O2SAT 99
[2024-03-25 07:36] VITALS: BP 121/76; PULSE 54; RESP 18; O2SAT 99
[2024-03-25 07:51] VITALS: BP 128/87; PULSE 59; RESP 18; TEMP 36.8; O2SAT 98
[2024-03-25] MEDS: Acetaminophen 325 MG TABLET 975 MG PO (08:16)
[2024-03-25] MEDS: oxyCODONE HCl Immed Release 5 MG TABLET PO (08:22)
== END 2024-03-25 08:53 | disposition home or self-care (01) ==
PROVIDERS: Visit Provider Psychiatry & Neurology Psychiatry
PROC: (CPT 90870; principal; 2024-03-25 08:00)
DX: F33.2 Major depressive disorder, recurrent severe without psychotic features (principal); G43.719 Chronic migraine without aura, intractable, without status migrainosus; D32.9 Benign neoplasm of meninges, unspecified; G93.0 Cerebral cysts; R41.3 Other amnesia; R45.851 Suicidal ideations; Z79.899 Other long term (current) drug therapy; Z79.82 Long term (current) use of aspirin; Z79.01 Long term (current) use of anticoagulants; Z95.5 Presence of coronary angioplasty implant and graft
CPT/HCPCS: 90870; J0330; J2250; J2405

== ENCOUNTER → 2024-03-25 06:02 | Outpatient (BNV) | payer MEDICARE, SELFPAY | PROVIDERS: Visit Provider Psychiatry & Neurology Psychiatry | DX: F33.3 Major depressive disorder, recurrent, severe with psychotic symptoms (principal) | CPT/HCPCS: 90870 ==

== ENCOUNTER 2024-03-27 05:59 | Day surgery (SDC) | payer MEDICARE, SELFPAY ==
[2024-03-27] VITALS (7 sets, daily range): BP systolic 110–131; BP diastolic 71–80; PULSE 52–56; RESP 16; TEMP 36.5; O2SAT 100; BMI 19.5
--- NOTE | 2024-03-27 06:49 | P.CONAN_ITS ---
FORMERLY [facility] Active Problems Active Problems: All Active Problems Preprocedural examination (Acute) Depression (Acute) Cervicalgia (Acute) Chronic migraine without aura, intractable, without status migrainosus (Acute) Status post cardiac surgery (Acute) New onset headache (Acute) Major depressive disorder, recurrent severe without psychotic features (Acute) Migraine (Acute) Arachnoid cyst (Acute) Meningioma (Acute) Past Medical History Medical History Cervicalgia Chronic migraine without aura, intractable, without status migrainosus Routine medical exam Suicidal ideation Arachnoid cyst Meningioma History of electroconvulsive therapy Memory loss Depression Family History Family history of problems with anesthesia: No Surgical History Surgical History History of heart artery stent H/O eye surgery History of Problems with Anesthesia: No (Bleeding from nose post last ECT necessitating ER visit. Requests no nasal cannula ) Social History Social History Household Members: Other Household Members Other:: house mates Housing: Apartment Alcohol intake: unknown Patient Tobacco Use Status: Never used Tobacco Advance Directives: No Advance Directives Information Provided: Yes service: No Sexual orientation: Don't Know Meds Allergies Allergy/AdvReac Type Severity Reaction Status Date / Time No Known Allergies Allergy Mild NKA Verified 03/20/24 09:26 Home Medications ?Medication ?Instructions ?Recorded ?Confirmed ?Last Taken ?Type aspirin 81 mg tablet,delayed 81 mg PO DAILY 12/18/23 03/18/24 03/18/24 History release atorvastatin 80 mg tablet 80 mg PO DAILY 12/18/23 03/18/24 03/18/24 History cholecalciferol (vitamin D3) 25 25 mcg PO DAILY 12/20/23 03/18/24 03/18/24 History mcg (1,000 unit) capsule mecobalamin (vitamin B12) 1,000 1,000 mcg PO DAILY 12/20/23 03/18/24 03/18/24 History mcg lozenges clonidine HCl 0.1 mg tablet 0.1 mg PO TID PRN Anxiety 03/18/24 03/18/24 03/18/24 History metoprolol tartrate 25 mg tablet 25 mg PO BID 1203/18/24 03/18/24 History ticagrelor 90 mg tablet (Brilinta) 90 mg PO BID 03/18/24 03/18/24 03/18/24 History Exam Height,Weight and Vital Signs: Height 5 ft 11 in Weight 63.503 kg Airway Mallampati Class: II TM Dist: >3cm Neck ROM: Full Heart: rrr Lungs: cta Assessment and Plan Assessment Anesthesia Assessment: Anesthesia Plan Discussed and Chart Reviewed Final Anesthetic Review Family History of Problems with Anesthesia: No History of Problems with Anesthesia: No (Bleeding from nose post last ECT necessitating ER visit. Requests no nasal cannula ) NPO: Yes ASA Class: III Final Preanesthetic Review: No Changes in Pt Med Stat, Meds/Allgs Chart Reviewed and Consent Obtained/Reviewed Patient Risk: Intermediate Procedure Risk: Intermediate Anesthetic Plan Anesthetic Plan: GA Disposition: Standard PACU
[2024-03-27] MEDS: Lactated Ringers 1,000 ML 50 ML IVCONT (06:59)
--- NOTE | 2024-03-27 07:10 | MHC.SHP ---
Pre-Procedural Eval Section A - 24 Hr Update-Section A only Date of Service: 03/27/24 The patient is an INPATIENT: No Changes since office visit: Yes Changes in Medication and Yes Patient answered all questions; No Cold of Flu in the past 2 weeks and No New Medical Problems Section B - Complete if H&P > 30 days Chief Complaint: depression Details of Present Illness: recurrent depression and anxiety Present Medications: see Short Stay Collaborative assessment Medical History: Significant History (meningioma) Allergies: Allergies Allergy/AdvReac Type Severity Reaction Status Date / Time No Known Allergies Allergy Mild NKA Verified 03/20/24 09:26 Review of Systems Sugical H&P ROS: Negative: Constitution, Cardiovascular, Respiratory, Neurological and Eyes/Ears/Nose/Throat (no epistaxis) and Yes, Specify: Psychiatric (depressed anxious) Exam Surgical H&P Exam: Normal: Heart, Normal: Lungs and Normal: Neurological Plan Diagnosis/Plan: Unchanged I have reviewed the history and physical and performed a pertinent physical examination on my patient. No changes have occurred unless specified. Time Spent With Patient Time: Total time managing care of this patient today ____ minutes.
--- NOTE | 2024-03-27 07:33 | HO.ECTPROC ---
ECT Procedure Note Diagnosis/Treatment Date of Service: 03/27/24 Previous ECT Date: 03/25/24 Current Treatment Number: 4 Treatment: Series Interval Clinical Notes: pt generallf feeling bettrt no significant side effects less depressed tends to ruminate Time: Total time managing care of this patient today ____ minutes. ECT Settings Device: THYMATRON DGx Electrode Placement: Bifrontal Program/Pulse Width: 0.25 Energy Percent: 100 Seizure Duration By EEG (in seconds): 29 Medications Administration General Anesthetic: Etomidate (16) Muscle Relaxant: Succinylcholine (100) Ancillary Medications Miscillaneous Medications: Midazolam and Other (lorazepam 1 mg ivp) Airway Management Airway Management: Bag Mask Ventilation Treatment Recommendations No Changes Recommended: No change Notes: had transient anxiety post ect
== END 2024-03-27 09:02 | disposition home or self-care (01) ==
PROVIDERS: Visit Provider Psychiatry & Neurology Psychiatry
PROC: (CPT 90870; principal; 2024-03-27 14:00)
DX: F33.2 Major depressive disorder, recurrent severe without psychotic features (principal); G93.2 Benign intracranial hypertension; G43.719 Chronic migraine without aura, intractable, without status migrainosus; Z79.82 Long term (current) use of aspirin; Z79.01 Long term (current) use of anticoagulants; Z95.5 Presence of coronary angioplasty implant and graft
CPT/HCPCS: 90870; J0330; J2250; J2405

== ENCOUNTER → 2024-03-27 05:59 | Outpatient (BNV) | payer MEDICARE, SELFPAY | PROVIDERS: Visit Provider Psychiatry & Neurology Psychiatry | DX: F33.3 Major depressive disorder, recurrent, severe with psychotic symptoms (principal) | CPT/HCPCS: 90870 ==

== ENCOUNTER 2024-03-29 08:04 | Day surgery (SDC) | payer MEDICARE, SELFPAY ==
[2024-03-29] VITALS (8 sets, daily range): BP systolic 96–172; BP diastolic 58–93; PULSE 50–63; RESP 16–18; TEMP 36.6–37.2; O2SAT 96–100; BMI 19.5
[2024-03-29] MEDS: Lactated Ringers 1,000 ML 100 ML IVCONT (08:46)
--- NOTE | 2024-03-29 09:26 | MHC.SHP ---
Pre-Procedural Eval Section A - 24 Hr Update-Section A only Date of Service: 03/29/24 The patient is an INPATIENT: No Changes since office visit: Yes Changes in Medication and Yes Patient answered all questions; No Cold of Flu in the past 2 weeks and No New Medical Problems Section B - Complete if H&P > 30 days Chief Complaint: depression Details of Present Illness: recurrent depression and anxiety some improvement no ect cognitive complaints Relevant Social History: Other (specify) (marijuana) Present Medications: see Short Stay Collaborative assessment Medical History: Significant History (meningioma) Allergies: Allergies Allergy/AdvReac Type Severity Reaction Status Date / Time No Known Allergies Allergy Mild NKA Verified 03/20/24 09:26 Review of Systems Sugical H&P ROS: Negative: Constitution, Cardiovascular, Respiratory, Neurological and Eyes/Ears/Nose/Throat (no epistaxis) and Yes, Specify: Psychiatric (less anxious) Exam Surgical H&P Exam: Normal: Heart (rr no murmur), Normal: Lungs (clear) and Normal: Neurological Plan Diagnosis/Plan: Unchanged I have reviewed the history and physical and performed a pertinent physical examination on my patient. No changes have occurred unless specified. Time Spent With Patient Time: Total time managing care of this patient today ____ minutes.
--- NOTE | 2024-03-29 09:28 | HO.ECTPROC ---
ECT Procedure Note Diagnosis/Treatment Date of Service: 03/29/24 Diagnosis: Major Depressive Disorder Previous ECT Date: 03/27/24 Current Treatment Number: 5 Treatment: Series Interval Clinical Notes: pt feeling better no significant side effects no si Time: Total time managing care of this patient today ____ minutes. ECT Settings Device: THYMATRON DGx Electrode Placement: Bifrontal Program/Pulse Width: 0.25 Energy Percent: 100 Seizure Duration By EEG (in seconds): 44 Medications Administration General Anesthetic: Etomidate (16) Muscle Relaxant: Succinylcholine (100) Ancillary Medications Anti-emetics: Zofran - Pre ECT Miscillaneous Medications: Other (lorazepam 2 mg ivp) Airway Management Airway Management: Bag Mask Ventilation Treatment Recommendations No Changes Recommended: No change Notes: had transient anxiety/confusion post ect given 2 mg lorazepam iv was helpful Pt Tolerated Procedure w/o Issue: Yes
--- NOTE | 2024-03-29 09:30 | HO.ANESPROP2 ---
HPI - Anesthesia Eval Consult details Narrative: 73 yo male patient for ECT PMFSH Active Problems Active Problems: All Active Problems Depression (Acute) Cervicalgia (Acute) Chronic migraine without aura, intractable, without status migrainosus (Acute) Status post cardiac surgery (Acute) New onset headache (Acute) Major depressive disorder, recurrent severe without psychotic features (Acute) Migraine (Acute) Arachnoid cyst (Acute) Meningioma (Acute) Past Medical History Medical History Preprocedural examination Cervicalgia Chronic migraine without aura, intractable, without status migrainosus Routine medical exam Suicidal ideation Arachnoid cyst Meningioma History of electroconvulsive therapy Memory loss Depression Family History Family history of problems with anesthesia: No Surgical History Surgical History History of heart artery stent H/O eye surgery History of Problems with Anesthesia: No (Bleeding from nose post last ECT necessitating ER visit. Requests no nasal cannula ) Social History Social History Household Members: Other Household Members Other:: house mates Housing: Apartment Alcohol intake: unknown Patient Tobacco Use Status: Never used Tobacco Advance Directives: No Advance Directives Information Provided: Yes service: No Sexual orientation: Don't Know Meds Allergies Allergy/AdvReac Type Severity Reaction Status Date / Time No Known Allergies Allergy Mild NKA Verified 03/20/24 09:26 Active Medications: Current Medications Lactated Ringer's (Lr) 1,000 mls @ 100 mls/hr IVCONT .Q10H ROMA Last Admin: 03/29/24 08:46 Dose: 100 mls/hr Home Medications ?Medication ?Instructions ?Recorded ?Confirmed ?Last Taken ?Type aspirin 81 mg tablet,delayed 81 mg PO DAILY 12/18/23 03/18/24 03/18/24 History release atorvastatin 80 mg tablet 80 mg PO DAILY 12/18/23 03/18/24 03/18/24 History cholecalciferol (vitamin D3) 25 25 mcg PO DAILY 12/20/23 03/18/24 03/18/24 History mcg (1,000 unit) capsule mecobalamin (vitamin B12) 1,000 1,000 mcg PO DAILY 12/20/23 03/18/24 03/18/24 History mcg lozenges clonidine HCl 0.1 mg tablet 0.1 mg PO TID PRN Anxiety 03/18/24 03/18/24 03/18/24 History metoprolol tartrate 25 mg tablet 25 mg PO BID 03/18/24 03/18/24 03/18/24 History ticagrelor 90 mg tablet (Brilinta) 90 mg PO BID 03/18/24 03/18/24 03/18/24 History Exam Height,Weight and Vital Signs: Height 5 ft 11 in Weight 63.503 kg Last Vital Signs Temp 97.8 F 03/29/24 08:30 Pulse 50 03/29/24 08:30 Resp 18 03/29/24 08:30 BP 138/75 03/29/24 08:30 Pulse Ox 100 03/29/24 08:30 O2 Del Method Room Air 03/29/24 08:30 Airway Mallampati Class: II TM Dist: >3cm Neck ROM: Full Loose/Missing/Broken Teeth: No Heart: RRR Lungs: CTAB Assessment and Plan Assessment Anesthesia Assessment: Anesthesia Plan Discussed and Chart Reviewed Final Anesthetic Review Family History of Problems with Anesthesia: No History of Problems with Anesthesia: No (Bleeding from nose post last ECT necessitating ER visit. Requests no nasal cannula ) NPO: Yes ASA Class: III Final Preanesthetic Review: No Changes in Pt Med Stat, Meds/Allgs Chart Reviewed, Consent Obtained/Reviewed and Anes Risks/Benef Reviewed Patient Risk: Intermediate Procedure Risk: Intermediate Assessment/Block/Sedation in SS: Assess/Block/Sedation-SS Anesthetic Plan Anesthetic Plan: GA Disposition: Standard PACU
[2024-03-29] MEDS: LORazepam 2 MG/ML VIAL IVPUSH (09:45)
== END 2024-03-29 11:45 | disposition home or self-care (01) ==
PROVIDERS: Visit Provider Psychiatry & Neurology Psychiatry
PROC: (CPT 90870; principal; 2024-03-29 10:00)
DX: F33.2 Major depressive disorder, recurrent severe without psychotic features (principal); G93.2 Benign intracranial hypertension; G43.719 Chronic migraine without aura, intractable, without status migrainosus; M54.2 Cervicalgia; D32.9 Benign neoplasm of meninges, unspecified; G93.0 Cerebral cysts; I25.10 Atherosclerotic heart disease of native coronary artery without angina pectoris; Z95.5 Presence of coronary angioplasty implant and graft; Z79.82 Long term (current) use of aspirin; Z79.01 Long term (current) use of anticoagulants; Z79.899 Other long term (current) drug therapy
CPT/HCPCS: 90870; J0330; J2060; J2250; J2405

== ENCOUNTER → 2024-03-29 08:04 | Outpatient (BNV) | payer MEDICARE, SELFPAY | PROVIDERS: Visit Provider Psychiatry & Neurology Psychiatry | DX: F33.2 Major depressive disorder, recurrent severe without psychotic features (principal) | CPT/HCPCS: 90870 ==

== ENCOUNTER 2024-04-01 08:04 | Day surgery (SDC) | payer MEDICARE, SELFPAY ==
[2024-04-01] VITALS (7 sets, daily range): BP systolic 112–143; BP diastolic 64–80; PULSE 50–65; RESP 16–18; TEMP 36.1–36.2; O2SAT 96–100; BMI 19.2
--- NOTE | 2024-04-01 08:30 | HO.ANESPROP2 ---
FORMERLY [facility], [facility] Active Problems Active Problems: All Active Problems Cervicalgia (Acute) Status post cardiac surgery (Acute) New onset headache (Acute) Major depressive disorder, recurrent severe without psychotic features (Acute) Migraine (Acute) Arachnoid cyst (Acute) Meningioma (Acute) Past Medical History Medical History Preprocedural examination Cervicalgia Chronic migraine without aura, intractable, without status migrainosus Routine medical exam Suicidal ideation Arachnoid cyst Meningioma History of electroconvulsive therapy Memory loss Depression Family History Family history of problems with anesthesia: No Surgical History Surgical History History of heart artery stent H/O eye surgery History of Problems with Anesthesia: No (Bleeding from nose post last ECT necessitating ER visit. Requests no nasal cannula ) Social History Social History Household Members: Other Household Members Other:: house mates Housing: Apartment Alcohol intake: unknown Patient Tobacco Use Status: Never used Tobacco Advance Directives: No Advance Directives Information Provided: Yes service: No Sexual orientation: Don't Know Meds Allergies Allergy/AdvReac Type Severity Reaction Status Date / Time No Known Allergies Allergy Mild NKA Verified 03/20/24 09:26 Home Medications ?Medication ?Instructions ?Recorded ?Confirmed ?Last Taken ?Type aspirin 81 mg tablet,delayed 81 mg PO DAILY 12/18/23 03/18/24 03/18/24 History release atorvastatin 80 mg tablet 80 mg PO DAILY 12/18/23 03/18/24 03/18/24 History cholecalciferol (vitamin D3) 25 25 mcg PO DAILY 12/20/23 03/18/24 03/18/24 History mcg (1,000 unit) capsule mecobalamin (vitamin B12) 1,000 1,000 mcg PO DAILY 12/20/23 03/18/24 03/18/24 History mcg lozenges clonidine HCl 0.1 mg tablet 0.1 mg PO TID PRN Anxiety 03/18/24 03/18/24 03/18/24 History metoprolol tartrate 25 mg tablet 25 mg PO BID 03/18/24 03/18/24 03/18/24 History ticagrelor 90 mg tablet (Brilinta) 90 mg PO BID 03/18/24 03/18/24 03/18/24 History Exam Airway Mallampati Class: II TM Dist: >3cm Neck ROM: Full Assessment and Plan Assessment Anesthesia Assessment: Anesthesia Plan Discussed and Chart Reviewed Final Anesthetic Review Family History of Problems with Anesthesia: No History of Problems with Anesthesia: No (Bleeding from nose post last ECT necessitating ER visit. Requests no nasal cannula ) NPO: Yes ASA Class: III Final Preanesthetic Review: No Changes in Pt Med Stat, Meds/Allgs Chart Reviewed, Consent Obtained/Reviewed, Anes Risks/Benef Reviewed and DNR Form (If Appl.) Patient Risk: Intermediate Procedure Risk: Low Anesthetic Plan Anesthetic Plan: GA Disposition: Standard PACU
[2024-04-01] MEDS: Lactated Ringers 1,000 ML 100 ML IVCONT (09:04)
--- NOTE | 2024-04-01 09:16 | MHC.SHP ---
Pre-Procedural Eval Section A - 24 Hr Update-Section A only Date of Service: 04/01/24 The patient is an INPATIENT: No Changes since office visit: No Cold of Flu in the past 2 weeks, No New Medical Problems, No Changes in Medication and No Patient answered all questions The patient has been examined within 24 hours of the surgical procedure. The History & Physical has been completed within 30 days and I have reviewed it.: Yes Section B - Complete if H&P > 30 days Chief Complaint: depression Allergies: Allergies Allergy/AdvReac Type Severity Reaction Status Date / Time No Known Allergies Allergy Mild NKA Verified 03/20/24 09:26 Plan I have reviewed the history and physical and performed a pertinent physical examination on my patient. No changes have occurred unless specified. Time Spent With Patient Time: Total time managing care of this patient today ____ minutes.
--- NOTE | 2024-04-01 09:30 | HO.ECTPROC ---
ECT Procedure Note Diagnosis/Treatment Date of Service: 04/01/24 Diagnosis: Major Depressive Disorder Previous ECT Date: 03/29/24 Current Treatment Number: 6 Treatment: Series Interval Clinical Notes: The patient reported improvement of dysphoria, no side effects with the previous ECT besides mild headache. ECT done as usual, a little longer seizure than usual but resolved by itself, no side effects. Time: Total time managing care of this patient today _30__ minutes. ECT Settings Device: THYMATRON DGx Electrode Placement: Bifrontal Program/Pulse Width: 0.25 Energy Percent: 100 Seizure Duration By EEG (in seconds): 81 By Motor Observation (in seconds): 45 Medications Administration General Anesthetic: Etomidate (14) Muscle Relaxant: Succinylcholine (100) Ancillary Medications Anti-emetics: Zofran - Pre ECT Miscillaneous Medications: Midazolam Airway Management Airway Management: Bag Mask Ventilation Treatment Recommendations No Changes Recommended: No change Pt Tolerated Procedure w/o Issue: Yes
== END 2024-04-01 11:30 | disposition home or self-care (01) ==
PROVIDERS: Visit Provider Psychiatry & Neurology Psychiatry
PROC: (CPT 90870; principal; 2024-04-01 07:30)
DX: F33.2 Major depressive disorder, recurrent severe without psychotic features (principal); G43.709 Chronic migraine without aura, not intractable, without status migrainosus; D32.9 Benign neoplasm of meninges, unspecified; G93.0 Cerebral cysts; R41.3 Other amnesia; M54.2 Cervicalgia; I25.10 Atherosclerotic heart disease of native coronary artery without angina pectoris; Z95.5 Presence of coronary angioplasty implant and graft; Z79.82 Long term (current) use of aspirin; Z79.02 Long term (current) use of antithrombotics/antiplatelets; Z79.899 Other long term (current) drug therapy; Z98.890 Other specified postprocedural states
CPT/HCPCS: 90870; J0330; J2250; J2405

== ENCOUNTER → 2024-04-01 08:04 | Outpatient (BNV) | payer MEDICARE, SELFPAY | PROVIDERS: Visit Provider Psychiatry & Neurology Psychiatry | DX: F33.3 Major depressive disorder, recurrent, severe with psychotic symptoms (principal) | CPT/HCPCS: 90870 ==

== ENCOUNTER 2024-04-05 06:02 | Day surgery (SDC) | payer MEDICARE, SELFPAY ==
[2024-04-05] VITALS (7 sets, daily range): BP systolic 103–131; BP diastolic 67–75; PULSE 53–58; RESP 16; TEMP 36.2–36.5; O2SAT 96–100; BMI 18.1
[2024-04-05] MEDS: Lactated Ringers 1,000 ML 100 ML IVCONT (06:40)
--- NOTE | 2024-04-05 06:59 | MHC.SHP ---
Pre-Procedural Eval Section A - 24 Hr Update-Section A only Date of Service: 04/05/24 Section B - Complete if H&P > 30 days Chief Complaint: depression Details of Present Illness: hx recurrent depression ect 7 has tolerated well feeling closer to nl Relevant Social History: None Allergies: Allergies Allergy/AdvReac Type Severity Reaction Status Date / Time No Known Allergies Allergy Mild NKA Verified 03/20/24 09:26 Review of Systems Sugical H&P ROS: Negative: Cardiovascular, Respiratory, Neurological and Gastrointestinal and Yes, Specify: Psychiatric (much improved) Exam Surgical H&P Exam: Normal: Heart, Normal: Lungs and Normal: Neurological Exam Comment: 131/75 p 58 Plan Diagnosis/Plan: Unchanged I have reviewed the history and physical and performed a pertinent physical examination on my patient. No changes have occurred unless specified. Time Spent With Patient Time: Total time managing care of this patient today ____ minutes.
--- NOTE | 2024-04-05 07:05 | HO.ECTPROC ---
ECT Procedure Note Diagnosis/Treatment Date of Service: 04/05/24 Diagnosis: Major Depressive Disorder Previous ECT Date: 03/29/24 Current Treatment Number: 7 Treatment: Series Interval Clinical Notes: The pt is feeling better more stable no c/o side effects. Discussed transition to maint tx Time: Total time managing care of this patient today ____ minutes. ECT Settings Device: THYMATRON DGx Electrode Placement: Bifrontal Program/Pulse Width: 0.25 Energy Percent: 100 Seizure Duration By EEG (in seconds): 44 Medications Administration General Anesthetic: Etomidate (16) Muscle Relaxant: Succinylcholine (100) Ancillary Medications Anti-emetics: Zofran - Pre ECT Miscillaneous Medications: Midazolam Airway Management Airway Management: Bag Mask Ventilation Treatment Recommendations No Changes Recommended: No change Electrode Placement: Bifrontal Program/Pulse Width: 0.25 Notes: prop 30 versed 2 oxycodone 5 mg Pt Tolerated Procedure w/o Issue: Yes
[2024-04-05] MEDS: oxyCODONE HCl Immed Release 5 MG TABLET PO (08:19)
--- NOTE | 2024-04-05 08:54 | HO.ANESPROP2 ---
[facility] Active Problems Active Problems: All Active Problems Cervicalgia (Acute) Status post cardiac surgery (Acute) New onset headache (Acute) Major depressive disorder, recurrent severe without psychotic features (Acute) Migraine (Acute) Arachnoid cyst (Acute) Meningioma (Acute) Past Medical History Medical History Preprocedural examination Cervicalgia Chronic migraine without aura, intractable, without status migrainosus Routine medical exam Suicidal ideation Arachnoid cyst Meningioma History of electroconvulsive therapy Memory loss Depression Functional capacity: independent ambulation Family History Family history of problems with anesthesia: No Surgical History Surgical History History of heart artery stent H/O eye surgery History of Problems with Anesthesia: No (Bleeding from nose post last ECT necessitating ER visit. Requests no nasal cannula ) Social History Social History Household Members: Other Household Members Other:: house mates Housing: Apartment Alcohol intake: unknown Patient Tobacco Use Status: Never used Tobacco service: No Sexual orientation: Don't Know Meds Allergies Allergy/AdvReac Type Severity Reaction Status Date / Time No Known Allergies Allergy Mild NKA Verified 03/20/24 09:26 Home Medications ?Medication ?Instructions ?Recorded ?Confirmed ?Last Taken ?Type aspirin 81 mg tablet,delayed 81 mg PO DAILY 12/18/23 03/18/24 03/18/24 History release atorvastatin 80 mg tablet 80 mg PO DAILY 12/18/23 03/18/24 03/18/24 History cholecalciferol (vitamin D3) 25 25 mcg PO DAILY 12/20/23 03/18/24 03/18/24 History mcg (1,000 unit) capsule mecobalamin (vitamin B12) 1,000 1,000 mcg PO DAILY 12/20/23 03/18/24 03/18/24 History mcg lozenges clonidine HCl 0.1 mg tablet 0.1 mg PO TID PRN Anxiety 03/18/24 03/18/24 03/18/24 History metoprolol tartrate 25 mg tablet 25 mg PO BID 03/18/24 03/18/24 03/18/24 History ticagrelor 90 mg tablet (Brilinta) 90 mg PO BID 03/18/24 03/18/24 03/18/24 History Exam Height,Weight and Vital Signs: Height 5 ft 11 in Weight 58.967 kg Last Vital Signs Temp 97.2 F 04/05/24 08:10 Pulse 55 04/05/24 08:10 Resp 16 04/05/24 08:10 BP 112/70 04/05/24 08:10 Pulse Ox 99 04/05/24 08:10 O2 Del Method Room Air 04/05/24 08:10 Airway Mallampati Class: II TM Dist: >3cm Neck ROM: Full Heart: RRR Lungs: CTA Assessment and Plan Assessment Anesthesia Assessment: Anesthesia Plan Discussed and Chart Reviewed Final Anesthetic Review Family History of Problems with Anesthesia: No History of Problems with Anesthesia: No (Bleeding from nose post last ECT necessitating ER visit. Requests no nasal cannula ) NPO: Yes ASA Class: III Final Preanesthetic Review: Meds/Allgs Chart Reviewed and Consent Obtained/Reviewed Patient Risk: Intermediate Procedure Risk: Low Anesthetic Plan Anesthetic Plan: GA Disposition: Standard PACU
--- NOTE | 2024-04-05 09:01 | HO.POSTANES ---
Post Anesthesia Evaluation Post Anesthesia Evaluation Date of Service: 04/05/24 Vital Signs: Vital Signs Temp Pulse Resp BP Pulse Ox O2 Del Method 04/05/24 08:10 97.2 F 55 16 112/70 99 Room Air 04/05/24 07:55 53 16 111/67 100 Room Air 04/05/24 07:40 55 16 111/73 99 Room Air 04/05/24 07:35 54 16 104/68 99 Room Air 04/05/24 07:30 57 16 105/73 100 Room Air 04/05/24 07:25 97.7 F 57 16 103/69 100 Room Air 04/05/24 06:36 97.5 F 58 16 131/75 96 Room Air Anesthesia: General Mental Status: Awake Pain Control: Satisfactory Nausea/Vomiting: None Hydration: Adequate Anesthesia-Related Issues: No Anes. Related Issues
== END 2024-04-05 08:47 | disposition home or self-care (01) ==
PROVIDERS: Visit Provider Psychiatry & Neurology Psychiatry
PROC: (CPT 90870; principal; 2024-04-05 07:00)
DX: F33.2 Major depressive disorder, recurrent severe without psychotic features (principal); G43.709 Chronic migraine without aura, not intractable, without status migrainosus; D32.9 Benign neoplasm of meninges, unspecified; G93.0 Cerebral cysts; R41.3 Other amnesia; I25.10 Atherosclerotic heart disease of native coronary artery without angina pectoris; Z95.5 Presence of coronary angioplasty implant and graft; Z79.82 Long term (current) use of aspirin; Z79.899 Other long term (current) drug therapy
CPT/HCPCS: 90870; J0330; J2250; J2405

== ENCOUNTER → 2024-04-05 06:02 | Outpatient (BNV) | payer MEDICARE, SELFPAY | PROVIDERS: Visit Provider Psychiatry & Neurology Psychiatry | DX: F33.2 Major depressive disorder, recurrent severe without psychotic features (principal) | CPT/HCPCS: 90870 ==

== ENCOUNTER 2024-04-08 06:04 | Day surgery (SDC) | payer MEDICARE, SELFPAY ==
[2024-04-08] VITALS (9 sets, daily range): BP systolic 99–147; BP diastolic 60–82; PULSE 46–58; RESP 16–18; TEMP 36.2–36.8; O2SAT 96–100; BMI 18.1
--- NOTE | 2024-04-08 07:05 | MHC.SHP ---
Pre-Procedural Eval Section A - 24 Hr Update-Section A only Date of Service: 04/08/24 The patient is an INPATIENT: No Changes since office visit: No Cold of Flu in the past 2 weeks, No New Medical Problems, No Changes in Medication and No Patient answered all questions The patient has been examined within 24 hours of the surgical procedure. The History & Physical has been completed within 30 days and I have reviewed it.: Yes Section B - Complete if H&P > 30 days Chief Complaint: depression Allergies: Allergies Allergy/AdvReac Type Severity Reaction Status Date / Time No Known Allergies Allergy Mild NKA Verified 03/20/24 09:26 Plan I have reviewed the history and physical and performed a pertinent physical examination on my patient. No changes have occurred unless specified. Time Spent With Patient Time: Total time managing care of this patient today ____ minutes.
--- NOTE | 2024-04-08 07:20 | HO.ECTPROC ---
ECT Procedure Note Diagnosis/Treatment Date of Service: 04/08/24 Diagnosis: Major Depressive Disorder Previous ECT Date: 04/05/24 Current Treatment Number: 8 Treatment: Series Interval Clinical Notes: The patient reported improvement of dysphoria, he reported headaches after the last procedure and requested Oxycodone that helped him last time. ECT done as usual, no complications. As per suggestion of Dr. Epperson, we will do Propofol, Midazolam and oxycodone PO post ECT. He woke up well. Time: Total time managing care of this patient today __30__ minutes. ECT Settings Device: THYMATRON DGx Electrode Placement: Bifrontal Program/Pulse Width: 0.25 Energy Percent: 100 Seizure Duration By EEG (in seconds): 0 (computer didn't registered seizure but there was seizure activity until 36s) By Motor Observation (in seconds): 34 Medications Administration General Anesthetic: Etomidate (16) Muscle Relaxant: Succinylcholine (100) Ancillary Medications Anti-emetics: Zofran - Pre ECT Miscillaneous Medications: Propofol (30), Midazolam (2) and Other (Oxycodone 5 mg po after ECT) Airway Management Airway Management: Bag Mask Ventilation Treatment Recommendations No Changes Recommended: No change Pt Tolerated Procedure w/o Issue: Yes
--- NOTE | 2024-04-08 07:30 | P.CONAN_ITS ---
HPI - Anesthesia Eval Consult details Narrative: 73 yo male patient for ECT PMFSH Active Problems Active Problems: All Active Problems Cervicalgia (Acute) Status post cardiac surgery (Acute) New onset headache (Acute) Major depressive disorder, recurrent severe without psychotic features (Acute) Migraine (Acute) Arachnoid cyst (Acute) Meningioma (Acute) Past Medical History Medical History Preprocedural examination Cervicalgia Chronic migraine without aura, intractable, without status migrainosus Routine medical exam Suicidal ideation Arachnoid cyst Meningioma History of electroconvulsive therapy Memory loss Depression Family History Family history of problems with anesthesia: No Surgical History Surgical History History of heart artery stent H/O eye surgery History of Problems with Anesthesia: No (Bleeding from nose post last ECT necessitating ER visit. Requests no nasal cannula ) Social History Social History Household Members: Other Household Members Other:: house mates Housing: Apartment Alcohol intake: unknown Patient Tobacco Use Status: Never used Tobacco service: No Sexual orientation: Don't Know Meds Allergies Allergy/AdvReac Type Severity Reaction Status Date / Time No Known Allergies Allergy Mild NKA Verified 03/20/24 09:26 Home Medications ?Medication ?Instructions ?Recorded ?Confirmed ?Last Taken ?Type aspirin 81 mg tablet,delayed 81 mg PO DAILY 12/18/23 03/18/24 03/18/24 History release atorvastatin 80 mg tablet 80 mg PO DAILY 12/18/23 03/18/24 03/18/24 History cholecalciferol (vitamin D3) 25 25 mcg PO DAILY 12/20/23 03/18/24 03/18/24 History mcg (1,000 unit) capsule mecobalamin (vitamin B12) 1,000 1,000 mcg PO DAILY 12/20/23 03/18/24 03/18/24 History mcg lozenges clonidine HCl 0.1 mg tablet 0.1 mg PO TID PRN Anxiety 03/18/24 03/18/24 03/18/24 History metoprolol tartrate 25 mg tablet 25 mg PO BID 03/18/24 03/18/24 03/18/24 History ticagrelor 90 mg tablet (Brilinta) 90 mg PO BID 03/18/24 03/18/24 03/18/24 History Exam Height,Weight and Vital Signs: Height 5 ft 11 in Weight 58.967 kg Last Vital Signs Temp 97.2 F 04/08/24 06:49 Pulse 51 04/08/24 06:49 Resp 16 04/08/24 06:49 BP 140/60 H 04/08/24 06:49 Pulse Ox 99 04/08/24 06:49 O2 Del Method Room Air 04/08/24 06:49 Airway Mallampati Class: II TM Dist: >3cm Neck ROM: Full Loose/Missing/Broken Teeth: No Heart: RRR Lungs: CTAB Assessment and Plan Assessment Anesthesia Assessment: Anesthesia Plan Discussed and Chart Reviewed Final Anesthetic Review Family History of Problems with Anesthesia: No History of Problems with Anesthesia: No (Bleeding from nose post last ECT necessitating ER visit. Requests no nasal cannula ) NPO: Yes ASA Class: III Final Preanesthetic Review: No Changes in Pt Med Stat, Meds/Allgs Chart Claudine olivares, Consent Obtained/Reviewed and Anes Risks/Benef Reviewed Patient Risk: Intermediate Procedure Risk: Intermediate Assessment/Block/Sedation in SS: Assess/Block/Sedation-SS Anesthetic Plan Anesthetic Plan: GA Disposition: Standard PACU
[2024-04-08] MEDS: oxyCODONE HCl Immed Release 5 MG TABLET PO (08:29)
== END 2024-04-08 10:00 | disposition home or self-care (01) ==
PROVIDERS: Visit Provider Psychiatry & Neurology Psychiatry
PROC: (CPT 90870; principal; 2024-04-08 08:00)
DX: F33.2 Major depressive disorder, recurrent severe without psychotic features (principal); G43.709 Chronic migraine without aura, not intractable, without status migrainosus; D32.9 Benign neoplasm of meninges, unspecified; G93.0 Cerebral cysts; R41.3 Other amnesia; I25.10 Atherosclerotic heart disease of native coronary artery without angina pectoris; Z95.5 Presence of coronary angioplasty implant and graft; Z79.82 Long term (current) use of aspirin; Z79.899 Other long term (current) drug therapy
CPT/HCPCS: 90870; J0330; J2250; J2405; J2704

== ENCOUNTER → 2024-04-08 06:04 | Outpatient (BNV) | payer MEDICARE, SELFPAY | PROVIDERS: Visit Provider Psychiatry & Neurology Psychiatry | DX: F33.2 Major depressive disorder, recurrent severe without psychotic features (principal) | CPT/HCPCS: 90870 ==

== ENCOUNTER 2024-04-12 06:04 | Day surgery (SDC) | payer MEDICARE, SELFPAY ==
[2024-04-12] VITALS (8 sets, daily range): BP systolic 103–139; BP diastolic 64–77; PULSE 50–62; RESP 16; TEMP 36.1–36.7; O2SAT 97–100; BMI 18.1
[2024-04-12] MEDS: Lactated Ringers 1,000 ML 100 ML IVCONT (06:41)
--- NOTE | 2024-04-12 07:13 | MHC.SHP ---
Pre-Procedural Eval Section A - 24 Hr Update-Section A only Date of Service: 04/12/24 Section B - Complete if H&P > 30 days Chief Complaint: depression Details of Present Illness: hx recurrent depression ect 9 has tolerated well feeling closer to nl Relevant Social History: None Allergies: Allergies Allergy/AdvReac Type Severity Reaction Status Date / Time No Known Allergies Allergy Mild NKA Verified 03/20/24 09:26 Review of Systems Sugical H&P ROS: Negative: Cardiovascular, Respiratory, Neurological and Gastrointestinal and Yes, Specify: Psychiatric (much improved) Exam Surgical H&P Exam: Normal: Heart, Normal: Lungs and Normal: Neurological Exam Comment: 139/77 p 58 Plan Diagnosis/Plan: Unchanged I have reviewed the history and physical and performed a pertinent physical examination on my patient. No changes have occurred unless specified. Time Spent With Patient Time: Total time managing care of this patient today ____ minutes.
--- NOTE | 2024-04-12 07:14 | HO.ECTPROC ---
ECT Procedure Note Diagnosis/Treatment Date of Service: 04/12/24 Diagnosis: Major Depressive Disorder Previous ECT Date: 04/08/24 Current Treatment Number: 9 Treatment: Series Interval Clinical Notes: The patient reports ongoing improvement has been taking seroquel helpful for rumination anxiety no c/o side effects cognitively clear Time: Total time managing care of this patient today ____ minutes. ECT Settings Device: THYMATRON DGx Electrode Placement: Bifrontal Program/Pulse Width: 0.25 Energy Percent: 100 Seizure Duration By EEG (in seconds): 49 Medications Administration General Anesthetic: Etomidate (16) Muscle Relaxant: Succinylcholine (100) Ancillary Medications Anti-emetics: Zofran - Pre ECT Miscillaneous Medications: Propofol (30), Midazolam (2) and Other (Oxycodone 5 mg po after ECT) Airway Management Airway Management: Bag Mask Ventilation Treatment Recommendations No Changes Recommended: No change Pt Tolerated Procedure w/o Issue: Yes
--- NOTE | 2024-04-12 08:12 | HO.POSTANES ---
Post Anesthesia Evaluation Post Anesthesia Evaluation Date of Service: 04/12/24 Vital Signs: Vital Signs Temp Pulse Resp BP Pulse Ox O2 Del Method 04/12/24 07:59 51 16 117/72 100 Room Air 04/12/24 07:45 53 16 111/71 100 Room Air 04/12/24 07:40 58 16 110/71 99 Room Air 04/12/24 07:35 62 16 103/70 100 Room Air 04/12/24 07:30 98.1 F 53 16 111/64 100 Room Air 04/12/24 06:39 97 F 52 16 139/77 97 Room Air Anesthesia: General Mental Status: Awake Pain Control: Satisfactory Nausea/Vomiting: None Hydration: Adequate Anesthesia-Related Issues: No Anes. Related Issues
--- NOTE | 2024-04-12 08:14 | P.CONAN_ITS ---
[facility] Active Problems Active Problems: All Active Problems Cervicalgia (Acute) Status post cardiac surgery (Acute) New onset headache (Acute) Major depressive disorder, recurrent severe without psychotic features (Acute) Migraine (Acute) Arachnoid cyst (Acute) Meningioma (Acute) Past Medical History Medical History Preprocedural examination Cervicalgia Chronic migraine without aura, intractable, without status migrainosus Routine medical exam Suicidal ideation Arachnoid cyst Meningioma History of electroconvulsive therapy Memory loss Depression Functional capacity: independent ambulation Family History Family history of problems with anesthesia: No Surgical History Surgical History History of heart artery stent H/O eye surgery History of Problems with Anesthesia: No (Bleeding from nose post last ECT necessitating ER visit. Requests no nasal cannula ) Social History Social History Household Members: Other Household Members Other:: house mates Housing: Apartment Alcohol intake: unknown Patient Tobacco Use Status: Never used Tobacco Advance Directives: No Advance Directives Information Provided: Yes service: No Sexual orientation: Don't Know Meds Allergies Allergy/AdvReac Type Severity Reaction Status Date / Time No Known Allergies Allergy Mild NKA Verified 03/20/24 09:26 Active Medications: Current Medications Lactated Ringer's (Lr) 1,000 mls @ 100 mls/hr IVCONT .Q10H ROMA Last Admin: 04/12/24 06:41 Dose: 100 mls/hr Home Medications ?Medication ?Instructions ?Recorded ?Confirmed ?Last Taken ?Type aspirin 81 mg tablet,delayed 81 mg PO DAILY 12/18/23 03/18/24 03/18/24 History release atorvastatin 80 mg tablet 80 mg PO DAILY 12/18/23 03/18/24 03/18/24 History cholecalciferol (vitamin D3) 25 25 mcg PO DAILY 12/20/23 03/18/24 03/18/24 History mcg (1,000 unit) capsule mecobalamin (vitamin B12) 1,000 1,000 mcg PO DAILY 12/20/23 03/18/24 03/18/24 History mcg lozenges clonidine HCl 0.1 mg tablet 0.1 mg PO TID PRN Anxiety 12/09/24 12/09/24 12/09/24 History metoprolol tartrate 25 mg tablet 25 mg PO BID 03/18/24 03/18/24 03/18/24 History ticagrelor 90 mg tablet (Brilinta) 90 mg PO BID 03/18/24 03/18/24 03/18/24 History Exam Height,Weight and Vital Signs: Height 5 ft 11 in Weight 58.967 kg Last Vital Signs Temp 98.1 F 04/12/24 07:30 Pulse 51 04/12/24 07:59 Resp 16 04/12/24 07:59 BP 117/72 04/12/24 07:59 Pulse Ox 100 04/12/24 07:59 O2 Del Method Room Air 04/12/24 07:59 Airway Mallampati Class: III TM Dist: >3cm Neck ROM: Full Heart: RRR Lungs: CTA Assessment and Plan Assessment Anesthesia Assessment: Anesthesia Plan Discussed and Chart Reviewed Final Anesthetic Review Family History of Problems with Anesthesia: No History of Problems with Anesthesia: No (Bleeding from nose post last ECT necessitating ER visit. Requests no nasal cannula ) NPO: Yes ASA Class: III Final Preanesthetic Review: Meds/Allgs Chart Reviewed, Consent Obtained/Reviewed and Anes Risks/Benef Reviewed Patient Risk: Intermediate Procedure Risk: Low Anesthetic Plan Anesthetic Plan: GA Disposition: Standard PACU
--- NOTE | 2024-04-12 08:15 | HO.POSTANES ---
Post Anesthesia Evaluation Post Anesthesia Evaluation Date of Service: 04/12/24 Vital Signs: Vital Signs Temp Pulse Resp BP Pulse Ox O2 Del Method 04/12/24 08:14 50 16 108/68 100 Room Air 04/12/24 07:59 51 16 117/72 100 Room Air 04/12/24 07:45 53 16 111/71 100 Room Air 04/12/24 07:40 58 16 110/71 99 Room Air 04/12/24 07:35 62 16 103/70 100 Room Air 04/12/24 07:30 98.1 F 53 16 111/64 100 Room Air 04/12/24 06:39 97 F 52 16 139/77 97 Room Air Anesthesia: General Mental Status: Awake Pain Control: Satisfactory Nausea/Vomiting: None Hydration: Adequate Anesthesia-Related Issues: No Anes. Related Issues
[2024-04-12] MEDS: oxyCODONE HCl Immed Release 5 MG TABLET PO (08:32)
--- NOTE | 2024-04-12 10:27 | P.CONAN_ITS ---
COUNT INCLUDES THE [facility] Active Problems Active Problems: All Active Problems Cervicalgia (Acute) Status post cardiac surgery (Acute) New onset headache (Acute) Major depressive disorder, recurrent severe without psychotic features (Acute) Migraine (Acute) Arachnoid cyst (Acute) Meningioma (Acute) Past Medical History Medical History Preprocedural examination Cervicalgia Chronic migraine without aura, intractable, without status migrainosus Routine medical exam Suicidal ideation Arachnoid cyst Meningioma History of electroconvulsive therapy Memory loss Depression Functional capacity: independent ambulation Family History Family history of problems with anesthesia: No Surgical History Surgical History History of heart artery stent H/O eye surgery History of Problems with Anesthesia: No (Bleeding from nose post last ECT necessitating ER visit. Requests no nasal cannula ) Social History Social History Household Members: Other Household Members Other:: house mates Housing: Apartment Alcohol intake: unknown Patient Tobacco Use Status: Never used Tobacco service: No Sexual orientation: Don't Know Meds Allergies Allergy/AdvReac Type Severity Reaction Status Date / Time No Known Allergies Allergy Mild NKA Verified 03/20/24 09:26 Home Medications ?Medication ?Instructions ?Recorded ?Confirmed ?Last Taken ?Type aspirin 81 mg tablet,delayed 81 mg PO DAILY 12/18/23 03/18/24 03/18/24 History release atorvastatin 80 mg tablet 80 mg PO DAILY 12/18/23 03/18/24 03/18/24 History cholecalciferol (vitamin D3) 25 25 mcg PO DAILY 12/20/23 03/18/24 03/18/24 History mcg (1,000 unit) capsule mecobalamin (vitamin B12) 1,000 1,000 mcg PO DAILY 12/20/23 03/18/24 03/18/24 History mcg lozenges clonidine HCl 0.1 mg tablet 0.1 mg PO TID PRN Anxiety 03/18/24 03/18/24 03/18/24 History metoprolol tartrate 25 mg tablet 25 mg PO BID 03/18/24 03/18/24 03/18/24 History ticagrelor 90 mg tablet (Brilinta) 90 mg PO BID 03/18/24 03/18/24 03/18/24 History Exam Height,Weight and Vital Signs: Height 5 ft 11 in Weight 58.967 kg Last Vital Signs Temp 97.5 F 04/12/24 08:30 Pulse 50 04/12/24 08:30 Resp 16 04/12/24 08:30 BP 114/68 04/12/24 08:30 Pulse Ox 100 04/12/24 08:30 O2 Del Method Room Air 04/12/24 08:30 Airway Mallampati Class: II TM Dist: >3cm Heart: RRR Lungs: CTA Assessment and Plan Assessment Anesthesia Assessment: Anesthesia Plan Discussed and Chart Reviewed Final Anesthetic Review Family History of Problems with Anesthesia: No History of Problems with Anesthesia: No (Bleeding from nose post last ECT necessitating ER visit. Requests no nasal cannula ) NPO: Yes ASA Class: III Final Preanesthetic Review: Meds/Allgs Chart Reviewed, Consent Obtained/Reviewed and Anes Risks/Benef Reviewed Anesthetic Plan Anesthetic Plan: GA Disposition: Standard PACU and Extended PACU
--- NOTE | 2024-04-12 10:34 | HO.POSTANES ---
Post Anesthesia Evaluation Post Anesthesia Evaluation Date of Service: 04/12/24 Vital Signs: Vital Signs Temp Pulse Resp BP Pulse Ox O2 Del Method 04/12/24 08:30 97.5 F 50 16 114/68 100 Room Air 04/12/24 08:14 50 16 108/68 100 Room Air 04/12/24 07:59 51 16 117/72 100 Room Air 04/12/24 07:45 53 16 111/71 100 Room Air 04/12/24 07:40 58 16 110/71 99 Room Air 04/12/24 07:35 62 16 103/70 100 Room Air 04/12/24 07:30 98.1 F 53 16 111/64 100 Room Air 04/12/24 06:39 97 F 52 16 139/77 97 Room Air Anesthesia: General Mental Status: Awake Pain Control: Satisfactory Nausea/Vomiting: None Hydration: Adequate Anesthesia-Related Issues: No Anes. Related Issues
== END 2024-04-12 08:50 | disposition home or self-care (01) ==
PROVIDERS: Visit Provider Psychiatry & Neurology Psychiatry
PROC: (CPT 90870; principal; 2024-04-12 08:00)
DX: F33.3 Major depressive disorder, recurrent, severe with psychotic symptoms (principal); G43.709 Chronic migraine without aura, not intractable, without status migrainosus; D32.9 Benign neoplasm of meninges, unspecified; G93.0 Cerebral cysts; R41.3 Other amnesia; I25.10 Atherosclerotic heart disease of native coronary artery without angina pectoris; Z95.5 Presence of coronary angioplasty implant and graft; Z79.82 Long term (current) use of aspirin; Z79.899 Other long term (current) drug therapy
CPT/HCPCS: 90870; J0330; J2250; J2405; J2704

== ENCOUNTER → 2024-04-12 06:04 | Outpatient (BNV) | payer MEDICARE, SELFPAY | PROVIDERS: Visit Provider Psychiatry & Neurology Psychiatry | DX: F33.3 Major depressive disorder, recurrent, severe with psychotic symptoms (principal) | CPT/HCPCS: 90870 ==

== ENCOUNTER 2024-04-17 06:02 | Day surgery (SDC) | payer MEDICARE, SELFPAY ==
[2024-04-17] VITALS (8 sets, daily range): BP systolic 94–113; BP diastolic 56–70; PULSE 50–56; RESP 12–16; TEMP 36–36.3; O2SAT 98–100
--- NOTE | 2024-04-17 06:55 | P.CONAN_ITS ---
[facility] Active Problems Active Problems: All Active Problems Cervicalgia (Acute) Status post cardiac surgery (Acute) New onset headache (Acute) Major depressive disorder, recurrent severe without psychotic features (Acute) Migraine (Acute) Arachnoid cyst (Acute) Meningioma (Acute) Past Medical History Medical History Preprocedural examination Cervicalgia Chronic migraine without aura, intractable, without status migrainosus Routine medical exam Suicidal ideation Arachnoid cyst Meningioma History of electroconvulsive therapy Memory loss Depression Family History Family history of problems with anesthesia: No Surgical History Surgical History History of heart artery stent H/O eye surgery History of Problems with Anesthesia: No (Bleeding from nose post last ECT necessitating ER visit. Requests no nasal cannula ) Social History Social History Household Members: Other Household Members Other:: house mates Housing: Apartment Alcohol intake: unknown Patient Tobacco Use Status: Never used Tobacco Advance Directives: No Advance Directives Information Provided: Yes service: No Sexual orientation: Don't Know Meds Allergies Allergy/AdvReac Type Severity Reaction Status Date / Time No Known Allergies Allergy Mild NKA Verified 03/20/24 09:26 Home Medications ?Medication ?Instructions ?Recorded ?Confirmed ?Last Taken ?Type aspirin 81 mg tablet,delayed 81 mg PO DAILY 12/18/23 03/18/24 03/18/24 History release atorvastatin 80 mg tablet 80 mg PO DAILY 12/18/23 03/18/24 03/18/24 History cholecalciferol (vitamin D3) 25 25 mcg PO DAILY 12/20/23 03/18/24 03/18/24 History mcg (1,000 unit) capsule mecobalamin (vitamin B12) 1,000 1,000 mcg PO DAILY 12/20/23 03/18/24 03/18/24 History mcg lozenges clonidine HCl 0.1 mg tablet 0.1 mg PO TID PRN Anxiety 03/18/24 03/18/24 03/18/24 History metoprolol tartrate 25 mg tablet 25 mg PO BID 03/18/24 03/18/24 03/18/24 History ticagrelor 90 mg tablet (Brilinta) 90 mg PO BID 03/18/24 03/18/24 03/18/24 History Exam Height,Weight and Vital Signs: Height 511 ft Weight 61.781 kg Last Vital Signs Temp 96.8 F 04/17/24 06:44 Pulse 50 04/17/24 06:44 Resp 16 04/17/24 06:44 BP 113/70 04/17/24 06:44 Pulse Ox 100 04/17/24 06:44 O2 Del Method Room Air 04/17/24 06:44 Airway Mallampati Class: II TM Dist: >3cm Neck ROM: Full Heart: rrr Lungs: cta Assessment and Plan Assessment Anesthesia Assessment: Anesthesia Plan Discussed and Chart Reviewed Final Anesthetic Review Family History of Problems with Anesthesia: No History of Problems with Anesthesia: No (Bleeding from nose post last ECT necessitating ER visit. Requests no nasal cannula ) NPO: Yes ASA Class: III Final Preanesthetic Review: No Changes in Pt Med Stat, Meds/Allgs Chart Reviewed and Consent Obtained/Reviewed Patient Risk: Intermediate Procedure Risk: Intermediate Anesthetic Plan Anesthetic Plan: GA Disposition: Standard PACU
--- NOTE | 2024-04-17 07:04 | MHC.SHP ---
Pre-Procedural Eval Section A - 24 Hr Update-Section A only Date of Service: 04/17/24 Section B - Complete if H&P > 30 days Chief Complaint: depression Details of Present Illness: hx recurrent dep feeeling much more stable no c/o side effects Relevant Social History: None Medical History: Significant History Allergies: Allergies Allergy/AdvReac Type Severity Reaction Status Date / Time No Known Allergies Allergy Mild NKA Verified 03/20/24 09:26 Review of Systems Sugical H&P ROS: Negative: Cardiovascular, Respiratory, Neurological and Gastrointestinal and Yes, Specify: Psychiatric (much improved) Exam Surgical H&P Exam: Normal: Heart, Normal: Lungs and Normal: Neurological Exam Comment: 113/70 p 50 Plan Diagnosis/Plan: Unchanged I have reviewed the history and physical and performed a pertinent physical examination on my patient. No changes have occurred unless specified. Time Spent With Patient Time: Total time managing care of this patient today ____ minutes.
--- NOTE | 2024-04-17 07:07 | HO.ECTPROC ---
ECT Procedure Note Diagnosis/Treatment Date of Service: 04/17/24 Diagnosis: Major Depressive Disorder Previous ECT Date: 04/08/24 Current Treatment Number: 9 Treatment: Series Interval Clinical Notes: The patient reports ongoing improvement has been taking seroquel helpful for rumination anxiety no c/o side effects cognitively clear . Agreeable to maint tx Time: Total time managing care of this patient today ____ minutes. ECT Settings Device: THYMATRON DGx Electrode Placement: Bifrontal Program/Pulse Width: 0.25 Energy Percent: 100 Seizure Duration By EEG (in seconds): 31 Medications Administration General Anesthetic: Etomidate (16) Muscle Relaxant: Succinylcholine (100) Ancillary Medications Anti-emetics: Zofran - Pre ECT Miscillaneous Medications: Propofol (30), Midazolam (2) and Other (Oxycodone 5 mg po after ECT) Airway Management Airway Management: Bag Mask Ventilation Treatment Recommendations No Changes Recommended: No change Notes: f/u 3 weeks Pt Tolerated Procedure w/o Issue: Yes
[2024-04-17] MEDS: oxyCODONE HCl Immed Release 5 MG TABLET PO (08:26)
== END 2024-04-17 09:19 | disposition home or self-care (01) ==
PROVIDERS: Visit Provider Psychiatry & Neurology Psychiatry
PROC: (CPT 90870; principal; 2024-04-17 07:30)
DX: F33.2 Major depressive disorder, recurrent severe without psychotic features (principal); F41.9 Anxiety disorder, unspecified; G43.709 Chronic migraine without aura, not intractable, without status migrainosus; D32.9 Benign neoplasm of meninges, unspecified; G93.0 Cerebral cysts; R41.3 Other amnesia; I25.10 Atherosclerotic heart disease of native coronary artery without angina pectoris; Z95.5 Presence of coronary angioplasty implant and graft; Z79.82 Long term (current) use of aspirin; Z79.02 Long term (current) use of antithrombotics/antiplatelets; Z79.899 Other long term (current) drug therapy
CPT/HCPCS: 90870; J0330; J2250; J2405; J2704

== ENCOUNTER → 2024-04-17 06:02 | Outpatient (BNV) | payer MEDICARE, SELFPAY | PROVIDERS: Visit Provider Psychiatry & Neurology Psychiatry | DX: F33.3 Major depressive disorder, recurrent, severe with psychotic symptoms (principal) | CPT/HCPCS: 90870 ==

== ENCOUNTER 2024-05-06 06:04 | Day surgery (SDC) | payer MEDICARE, SELFPAY ==
[2024-05-06] VITALS (7 sets, daily range): BP systolic 100–119; BP diastolic 60–73; PULSE 51–56; RESP 16–18; TEMP 36.1–36.6; O2SAT 97–100; BMI 19.1
--- OUTSIDE RECORDS SUMMARY | 2024-05-06 06:06 | XMS_ITS | Patient Health Record ---
Author Organization [facility] Address [address] [place] [address] Support Name Relationship Address Phone Cira Nelson Emergency Contact [address], [place] [id number] Martir De La Paz Guarantor Unknown [phone] Reason For Referral No Information Medications Medication SIG (Take, Route, Frequency, Duration) Notes Start Date End Date Status KlonoPIN 1 mg 0 Oral Take 1 twice daily 01/28/2013 Active NAPROXEN SODIUM 550 MG TAB 30 Take 1 daily as needed for 30 *please review for potential update for e-prescription and drug interaction check* 01/29/2013 Active Plan Of Treatment No Information Insurance Providers Payer Name Payer Address Payer Phone Subscriber Number Group Number Insured Name Patient Relationship to Insured Coverage Start Date Coverage End Date [facility] [address] [place], [place] [id number] Martir De La Paz Self - patient is the insured
--- NOTE | 2024-05-06 07:05 | MHC.SHP ---
Pre-Procedural Eval Section A - 24 Hr Update-Section A only Date of Service: 05/06/24 The patient is an INPATIENT: No Changes since office visit: No Cold of Flu in the past 2 weeks, No New Medical Problems, No Changes in Medication and No Patient answered all questions The patient has been examined within 24 hours of the surgical procedure. The History & Physical has been completed within 30 days and I have reviewed it.: Yes Section B - Complete if H&P > 30 days Chief Complaint: depression Allergies: Allergies Allergy/AdvReac Type Severity Reaction Status Date / Time No Known Allergies Allergy Mild NKA Verified 03/20/24 09:26 Plan I have reviewed the history and physical and performed a pertinent physical examination on my patient. No changes have occurred unless specified. Time Spent With Patient Time: Total time managing care of this patient today ____ minutes.
--- NOTE | 2024-05-06 07:25 | HO.ECTPROC ---
ECT Procedure Note Diagnosis/Treatment Date of Service: 05/06/24 Diagnosis: Major Depressive Disorder Previous ECT Date: 04/17/24 Treatment: Maintenance Interval Clinical Notes: The patient reported euthymia, he doesn't have a psychiatrist who is following him, he asked about tappering off Seroquel. I advised him to get outpatient psychiatrist services to monitor his medications. No side effects. ECT done as usual, no complications woke up well. Time: Total time managing care of this patient today _30___ minutes. ECT Settings Device: THYMATRON DGx Electrode Placement: Bifrontal Program/Pulse Width: 0.50 Energy Percent: 100 Seizure Duration By EEG (in seconds): 67 By Motor Observation (in seconds): 0 Medications Administration General Anesthetic: Etomidate (16) Muscle Relaxant: Succinylcholine (100) Ancillary Medications Miscillaneous Medications: Other (OXYCODONE PO POST ECT) Airway Management Airway Management: Bag Mask Ventilation Treatment Recommendations No Changes Recommended: No change Pt Tolerated Procedure w/o Issue: Yes
[2024-05-06] MEDS: oxyCODONE HCl Immed Release 5 MG TABLET PO (08:30)
--- NOTE | 2024-05-06 08:46 | P.CONAN_ITS ---
[facility] Active Problems Active Problems: All Active Problems Cervicalgia (Acute) Status post cardiac surgery (Acute) New onset headache (Acute) Major depressive disorder, recurrent severe without psychotic features (Acute) Migraine (Acute) Arachnoid cyst (Acute) Meningioma (Acute) Past Medical History Medical History Preprocedural examination Cervicalgia Chronic migraine without aura, intractable, without status migrainosus Routine medical exam Suicidal ideation Arachnoid cyst Meningioma History of electroconvulsive therapy Memory loss Depression Family History Family history of problems with anesthesia: No Surgical History Surgical History History of heart artery stent H/O eye surgery History of Problems with Anesthesia: No (Bleeding from nose post last ECT necessitating ER visit. Requests no nasal cannula ) Social History Social History Household Members: Other Household Members Other:: house mates Housing: Apartment Alcohol intake: unknown Patient Tobacco Use Status: Never used Tobacco Advance Directives: No Advance Directives Information Provided: Yes service: No Sexual orientation: Don't Know Meds Allergies Allergy/AdvReac Type Severity Reaction Status Date / Time No Known Allergies Allergy Mild NKA Verified 03/20/24 09:26 Home Medications ?Medication ?Instructions ?Recorded ?Confirmed ?Last Taken ?Type aspirin 81 mg tablet,delayed 81 mg PO DAILY 12/18/23 03/18/24 03/18/24 History release atorvastatin 80 mg tablet 80 mg PO DAILY 12/18/23 03/18/24 03/18/24 History cholecalciferol (vitamin D3) 25 25 mcg PO DAILY 12/20/23 03/18/24 03/18/24 History mcg (1,000 unit) capsule mecobalamin (vitamin B12) 1,000 1,000 mcg PO DAILY 12/20/23 03/18/24 03/18/24 History mcg lozenges clonidine HCl 0.1 mg tablet 0.1 mg PO TID PRN Anxiety 03/18/24 03/18/24 03/18/24 History metoprolol tartrate 25 mg tablet 25 mg PO BID 03/18/24 03/18/24 03/18/24 History ticagrelor 90 mg tablet (Brilinta) 90 mg PO BID 03/18/24 03/18/24 03/18/24 History Exam Height,Weight and Vital Signs: Height 5 ft 11 in Weight 62.142 kg Last Vital Signs Temp 98 F 05/06/24 08:22 Pulse 53 05/06/24 08:22 Resp 16 05/06/24 08:22 BP 117/71 05/06/24 08:22 Pulse Ox 97 05/06/24 08:22 O2 Del Method Room Air 05/06/24 08:22 Airway Mallampati Class: II TM Dist: >3cm Neck ROM: Full Assessment and Plan Assessment Anesthesia Assessment: Anesthesia Plan Discussed and Chart Reviewed Final Anesthetic Review Family History of Problems with Anesthesia: No History of Problems with Anesthesia: No (Bleeding from nose post last ECT necessitating ER visit. Requests no nasal cannula ) NPO: Yes ASA Class: III Final Preanesthetic Review: No Changes in Pt Med Stat, Meds/Allgs Chart Reviewed, Consent Obtained/Reviewed, Anes Risks/Benef Reviewed and DNR Form (If Appl.) Patient Risk: Intermediate Procedure Risk: Intermediate Anesthetic Plan Anesthetic Plan: GA Disposition: Standard PACU
== END 2024-05-06 08:47 | disposition home or self-care (01) ==
PROVIDERS: Visit Provider Psychiatry & Neurology Psychiatry
PROC: (CPT 90870; principal; 2024-05-06 08:00)
DX: F33.2 Major depressive disorder, recurrent severe without psychotic features (principal); G43.709 Chronic migraine without aura, not intractable, without status migrainosus; D32.9 Benign neoplasm of meninges, unspecified; G93.0 Cerebral cysts; R41.3 Other amnesia; Z95.5 Presence of coronary angioplasty implant and graft; Z79.01 Long term (current) use of anticoagulants; Z79.82 Long term (current) use of aspirin; Z79.899 Other long term (current) drug therapy; Z98.890 Other specified postprocedural states
CPT/HCPCS: 90870; J0330; J2250; J2405; J2704

== ENCOUNTER → 2024-05-06 06:04 | Outpatient (BNV) | payer MEDICARE, SELFPAY | PROVIDERS: Visit Provider Psychiatry & Neurology Psychiatry | DX: F33.3 Major depressive disorder, recurrent, severe with psychotic symptoms (principal) | CPT/HCPCS: 90870 ==

== ENCOUNTER 2024-10-24 13:22 | Outpatient (AMB) | payer MEDICARE, SELFPAY ==
--- NOTE | 2024-10-24 13:21 | A.OFFVIS_ITS ---
Intake Visit Reasons: Medication Intake Note: Follow up for medication rec. 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 He stopped AImovig after Dec 2023 - as his headaches resolved. He was fine until September of this year . His Brilinta ( Trcagelor) was stopped . He reports headaches almost everyday and wants to restart aimovig His headaches are pressure pounding frontal headaches with nausea. He had 2 sessions of ECT Apr 2024 He had a AL 12 months ago and was admitted at [facility] and had stent placed. [facility] Medical History Preprocedural examination Cervicalgia Chronic migraine without aura, intractable, without status migrainosus Routine medical exam Suicidal ideation Arachnoid cyst Meningioma History of electroconvulsive therapy Memory loss Depression Surgical History History of heart artery stent H/O eye surgery Social History Household Members: Other Household Members Other:: house mates Housing: Apartment Alcohol intake: unknown Patient Tobacco Use Status: Never used Tobacco service: No Sexual orientation: Don't Know Physical Exam Const Other: Mood stable General: cooperative Telehealth Telehealth Telehealth Platform: Telephone Location of provider rendering services: practice address Location of patient: address on file Patient Identification confirmed using: Name, : Yes Telehealth method: voice only Patient verbally consented to treatment: Yes Patient verbally consented to billing insurance company: Yes Patient informed of any privacy concerns related to visit: Yes Minutes spent on Phone/Video with Pt.: 16 Assessment & Plan Assessment & Plan (1) Chronic migraine without aura, intractable, without status migrainosus: Code(s): G43.719 - Chronic migraine without aura, intractable, without status migrainosus Category: Medical (2) Meningioma: Code(s): D32.9 - Benign neoplasm of meninges, unspecified Category: Medical (3) Arachnoid cyst: Code(s): G93.0 - Cerebral cysts Category: Medical Plan Restart AImovig 140mg sc q month- as pt is still having > 30 % reduction in monthly migraine days from baseline. Previous trials- Botox- ineffective, Amitriptyline- ineffective, Propranolol- ineffective NO TRIPTANS due to his recent NSTEMI. Medications: New erenumab-aooe (Aimovig Autoinjector) 140 mg subcut .q monthly 1 mL 6RF Discontinued erenumab-aooe (Aimovig Autoinjector) Discontinued Reason: Patient no longer taking 140 mg subcut ONCE 30 days 1 mL 6RF Scribe Plan - Not visible on output: Reviewed possible medication side effects, including but not limited to drowsiness, dizziness. Coding Level of Care Code Tele Est Pt Level 3 (67605) Diagnoses Chronic migraine without aura, intractable, without status migrainosus G43.719 Meningioma D32.9 Arachnoid cyst G93.0
--- OUTSIDE RECORDS SUMMARY | 2024-10-24 13:52 | XMS_ITS | Patient Health Record ---
Author Organization [facility] Address [address] [place] [address] Support Name Relationship Address Phone Cira Nelson Emergency Contact [address], [place] [phone] Martir De La Paz Guarantor Unknown [phone] Reason For Referral No Information Medications Medication [...] Insured Coverage Start Date Coverage End Date [facility] [address] [place], [place] [id number] Martir De La Paz Self - patient is the insured
== END 2024-10-24 14:11 | disposition home or self-care (01) ==
LOC: HO.HSMS 13:23
PROVIDERS: Visit Provider Psychiatry & Neurology Neurology
DX: G43.719 Chronic migraine without aura, intractable, without status migrainosus (principal); D32.9 Benign neoplasm of meninges, unspecified; G93.0 Cerebral cysts
CPT/HCPCS: 98012